=== PATIENT | female | born 1970 | race Caucasian/White ===

== ENCOUNTER → 2017-06-05 10:38 | Outpatient (POV) | payer OTHER, SELFPAY ==
[2017-06-05 11:33] VITALS: BP 171/89; PULSE 113; RESP 18; TEMP 36.8; O2SAT 100; BMI 36.6
--- NOTE | 2017-06-05 11:42 | P.CONS_ITS ---
[facility] Pain Management SOAP Note Subjective:: This patient is a pleasant 46-year-old white female who we are treating for degenerative disc disease of lumbar spine with lumbar spondylosis and facet arthropathy. She had successful medial branch blocks at L4-L5 and L5-S1 on the right side. She got 80% relief of her pain symptoms. We will seek approval for rhizotomy of the same levels on the right side Objective:: Alert and oriented ?3 in no acute distress. Increased pain with extension. Motor strength of the lower extremities is 5/5. There is no gross sensory deficit. Tenderness over the lower lumbar spine. Assessment:: Degenerative disc disease of lumbar spine with lumbar spondylosis and facet arthropathy. Plan:: We will seek approval for lumbar facet rhizotomy of L4 L5-S1 on the right side patient did get 80% relief from her medial branch block or 2 days.
--- NOTE | 2017-07-05 09:21 | PC.PHONENOTE ---
Called in Rx for Tramadol HCL 50mg TID [facility] [place]
== END ==
PROVIDERS: Family Provider Pediatrics; PCP Urology; Visit Provider Anesthesiology
DX: M51.16 Intervertebral disc disorders with radiculopathy, lumbar region (principal)
CPT/HCPCS: 99212

== ENCOUNTER 2017-07-07 10:19 | Day surgery (SDC) | payer OTHER, SELFPAY ==
[2017-07-07 10:33] VITALS: BP 144/72; PULSE 83; RESP 20; TEMP 36.6; O2SAT 96; BMI 35.9
--- NOTE | 2017-07-07 11:56 | HMH.PMPROC ---
- Procedure Date: 07/07/17 Time: 11:56 Anesthesiologist:: Foster Romo MD Complications:: None Pre-procedure Diagnosis:: Degenerative disc disease of lumbar spine with lumbar spondylosis and facet arthropathy Post-procedure Diagnosis:: Same Indications for Procedure:: This patient is a pleasant 46-year-old white female who we are treating for degenerative disc disease of lumbar spine with lumbar spondylosis and facet arthropathy. She had 80% relief with medial branch blocks of L4-L5 and L5-S1 on the right side. Most of her pain is on the right side. We will do facet rhizotomy of L4-L5 and L5-S1 today on the right side. Procedure Details:: Lumbar RFA informed consent was obtained and the risk and benefits of the procedure was explained to the patient. Patient was placed prone on the procedure table. The patient was prepped and draped in sterile fashion. C-arm fluoroscopy was used to view the lumbar spine. The skin and subcutaneous tissues were anesthetized using lidocaine. I placed 20-gauge RF needles into the facet joints/medial branches of L4 and L5 levels on the right side. We underwent sensory stimulation. There is good sensory stimulation at 0.8 V. We underwent motor stimulation. There is no motor stimulation at 2 V. We then anesthetized these levels with lidocaine and Depo-Medrol. I used a total of 40 mg Depo-Medrol for both levels. I then burned both levels of L4 and L5 facet joint/medial branches on the right side for 60 seconds at 80?C. We underwent 4 torres again each 1 for 60 seconds at 80?C. Patient tolerated the procedure well with no complication. Plan and Disposition:: We will follow-up with her in 2 weeks in the clinic. We will reevaluate her symptoms at that time.
--- NOTE | 2017-07-07 12:01 | P.PCN_ITS ---
- Procedure Date: 07/07/17 Time: 11:56 Anesthesiologist:: Foster Romo MD Complications:: None Pre-procedure Diagnosis:: Degenerative disc disease of lumbar spine with lumbar spondylosis and facet arthropathy Post-procedure Diagnosis:: Same Indications for Procedure:: This patient is a pleasant 46-year-old white female who we are treating for degenerative disc disease of lumbar spine with lumbar spondylosis and facet arthropathy. She had 80% relief with medial branch blocks of L4-L5 and L5-S1 on the right side. Most of her pain is on the right side. We will do facet rhizotomy of L4-L5 and L5-S1 today on the right side. Procedure Details:: Lumbar RFA informed consent was obtained and the risk and benefits of the procedure was explained to the patient. Patient was placed prone on the procedure table. The patient was prepped and draped in sterile fashion. C-arm fluoroscopy was used to view the lumbar spine. The skin and subcutaneous tissues were anesthetized using lidocaine. I placed 20-gauge RF needles into the facet joints/medial branches of L4 and L5 levels on the right side. We underwent sensory stimulation. There is good sensory stimulation at 0.8 V. We underwent motor stimulation. There is no motor stimulation at 2 V. We then anesthetized these levels with lidocaine and Depo-Medrol. I used a total of 40 mg Depo- Medrol for both levels. I then burned both levels of L4 and L5 facet joint/ medial branches on the right side for 60 seconds at 80?C. We underwent 4 torres again each 1 for 60 seconds at 80?C. Patient tolerated the procedure well with no complication. Plan and Disposition:: We will follow-up with her in 2 weeks in the clinic. We will reevaluate her symptoms at that time.
[2017-07-07 12:03] VITALS: BP 148/100; PULSE 87; RESP 18; O2SAT 100
[2017-07-07 12:07] VITALS: BP 156/97; PULSE 83; RESP 18; O2SAT 18
[2017-07-07 12:16] VITALS: BP 150/94; PULSE 92; RESP 20; TEMP 36.6; O2SAT 96
== END 2017-07-07 12:20 ==
LOC: SC.PAINP 10:25
PROVIDERS: Family Provider Pediatrics; PCP Pediatrics; Visit Provider Anesthesiology
DX: M51.36 Other intervertebral disc degeneration, lumbar region (principal); M47.896 Other spondylosis, lumbar region; M54.06 Panniculitis affecting regions of neck and back, lumbar region
CPT/HCPCS: 64635; 64636; J1040

== ENCOUNTER → 2017-07-24 12:46 | Outpatient (POV) | payer OTHER, SELFPAY ==
--- NOTE | 2017-07-24 12:52 | HMH.PAINSOAP ---
[facility] Pain Management SOAP Note Subjective:: She is a very pleasant 46-year-old white female who presents today after radiofrequency ablation of the right side at L4-L5 L5-S1. Patient states she has 0 pain on the right side today. 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 She states that her left side does give her a little bit of pain rating it a 3 out of 10 today. However she at this point she is content with her pain control. She will follow-up as needed if her pain gets worse on her left side or if it begins returning on the right. ROS General: no recent weight change, no fever, no sleep disturbances Respiratory: no cough, no shortness of air, no recurring pulmonary infections Cardiovascular/Peripheral Vascular: No chest pain, No palpitations, no edema, no shortness of breath. Gastrointestinal: no incontinence, normal bowel movements reported Genitourinary: no incontinence Musculoskeletal: Back pain Psychiatric: normal mood/ affect, Neurological: [denies weakness in extremities], [denies balance issues] Objective:: Physical Exam General: Alert and oriented x3, no acute distress, pleasant and cooperative, [on room air] Lungs: Resps E/U, Symmetrical chest expansion, Eyes: PERRL Musculoskeletal: Flexion and extension of lumbar spine somewhat guarded secondary to pain, deep tendon reflexes normal, strength in upper and lower extremities [5/5], normal gait noted Neurological: speech clear, accounts payable manager equal, no gross sensory deficits Assessment:: Degenerative disc disease of the lumbar spine with lumbar spondylosis and facet arthropathy Plan:: We will follow-up with this patient as needed. She is going to contact us if her pain worsens or begins to return on her right side. Patient is currently taking tramadol 50 mg at nighttime to help her sleep. Patient's CHERYL #[id number] reviewed and appropriate. Patient does not need refills today. This note was dictated using voice recognition software and may contain errors or omissions
[2017-07-24 12:53] VITALS: BP 140/89; PULSE 82; RESP 18; TEMP 36.6; O2SAT 96; BMI 36.6
--- NOTE | 2017-07-24 12:55 | P.CONS_ITS ---
[facility] Pain Management SOAP Note Subjective:: She is a very pleasant 46-year-old white female who presents today after radiofrequency ablation of the right side at L4-L5 L5-S1. Patient states she has 0 pain on the right side today. 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 She states that her left side does give her a little bit of pain rating it a 3 out of 10 today. However she at this point she is content with her pain control. She will follow-up as needed if her pain gets worse on her left side or if it begins returning on the right. ROS General: no recent weight change, no fever, no sleep disturbances Respiratory: no cough, no shortness of air, no recurring pulmonary infections Cardiovascular/Peripheral Vascular: No chest pain, No palpitations, no edema, no shortness of breath. Gastrointestinal: no incontinence, normal bowel movements reported Genitourinary: no incontinence Musculoskeletal: Back pain Psychiatric: normal mood/ affect, Neurological: [denies weakness in extremities], [denies balance issues] Objective:: Physical Exam General: Alert and oriented x3, no acute distress, pleasant and cooperative, [ on room air] Lungs: Resps E/U, Symmetrical chest expansion, Eyes: PERRL Musculoskeletal: Flexion and extension of lumbar spine somewhat guarded secondary to pain, deep tendon reflexes normal, strength in upper and lower extremities [5/5], normal gait noted Neurological: speech clear, personal development educator equal, no gross sensory deficits Assessment:: Degenerative disc disease of the lumbar spine with lumbar spondylosis and facet arthropathy Plan:: We will follow-up with this patient as needed. She is going to contact us if her pain worsens or begins to return on her right side. Patient is currently taking tramadol 50 mg at nighttime to help her sleep. Patient's CHERYL # [id number] reviewed and appropriate. Patient does not need refills today. This note was dictated using voice recognition software and may contain errors or omissions
--- NOTE | 2017-08-02 08:41 | PC.PHONENOTE ---
called in Rx for Tramadol HCL 50mg TID with 1 refill to [facility] in [place]
== END ==
PROVIDERS: Family Provider Pediatrics; PCP Pediatrics; Visit Provider Clinical Nurse Specialist Family Health
DX: M47.26 Other spondylosis with radiculopathy, lumbar region (principal)
CPT/HCPCS: 99212

== ENCOUNTER → 2017-10-02 08:39 | Outpatient (POV) | payer OTHER, SELFPAY ==
[2017-10-02 09:03] VITALS: BP 154/98; PULSE 91; RESP 20; O2SAT 99; BMI 36.4
--- NOTE | 2017-10-02 09:34 | HMH.PAINSOAP ---
[facility] Pain Management SOAP Note Subjective:: Patient is a very pleasant 47-year-old white female who presents today. Patient completed a radiofrequency ablation of the right side at L4-L5 L5-S1. Patient returns today after 4 months of 100% relief. Patient states that after being more active she is begun to hurt again in the same area. Patient states that the pain is on both sides at this time. Patient does have trouble with twisting movements. She rates her pain a 6 out of 10 today. She does take tramadol 50 mg 1 po TID. Patient states that this helps her with working. Patient is interested in doing a repeat medial branch block to see if she gets some longer-term relief. I believe that this would be warranted given her symptomology. Is tried and failed physical therapy, bracing, medications, anti-inflammatories. Patient has had over 80% relief in the past with these injections for up to 8 weeks. ROS General: no recent weight change, no fever, no sleep disturbances Respiratory: no cough, no shortness of air, no recurring pulmonary infections Cardiovascular/Peripheral Vascular: No chest pain, No palpitations, no edema, no shortness of breath. Gastrointestinal: no incontinence, normal bowel movements reported Genitourinary: no incontinence Musculoskeletal: Back pain Psychiatric: normal mood/ affect Neurological: [denies weakness in extremities], [denies balance issues] Objective:: Physical Exam General: Alert and oriented x3, no acute distress, pleasant and cooperative, [on room air] Lungs: Resps E/U, Symmetrical chest expansion, Eyes: PERRL Musculoskeletal: Flexion and extension of lumbar spine somewhat guarded secondary to pain, deep tendon reflexes normal, strength in upper and lower extremities [5/5], normal gait noted, positive facet loading lumbar spine bilaterally, positive Kemps test. Neurological: speech clear, police chief deputy equal, no gross sensory deficits Assessment:: Facet arthropathy, lumbar spondylosis, degenerative disc disease of lumbar spine Plan:: We will plan a bilateral medial branch block of L4-L5 L5-S1. I believe given her success in the past that this would be beneficial for her. We will refill her tramadol 50 mg p.o. 3 times daily. Patient's CHERYL #[id number] reviewed and appropriate. Patient denies any side effects to the medication. She states that it helps her 50-60%. This note was dictated using voice recognition software and may contain errors or omissions
--- NOTE | 2017-10-02 09:38 | P.CONS_ITS ---
[facility] Pain Management SOAP Note Subjective:: Patient is a very pleasant 47-year-old white female who presents today. Patient completed a radiofrequency ablation of the right side at L4-L5 L5-S1. Patient returns today after 4 months of 100% relief. Patient states that after being more active she is begun to hurt again in the same area. Patient states that the pain is on both sides at this time. Patient does have trouble with twisting movements. She rates her pain a 6 out of 10 today. She does take tramadol 50 mg 1 po TID. Patient states that this helps her with working. Patient is interested in doing a repeat medial branch block to see if she gets some longer-term relief. I believe that this would be warranted given her symptomology. Is tried and failed physical therapy, bracing, medications, anti- inflammatories. Patient has had over 80% relief in the past with these injections for up to 8 weeks. ROS General: no recent weight change, no fever, no sleep disturbances Respiratory: no cough, no shortness of air, no recurring pulmonary infections Cardiovascular/Peripheral Vascular: No chest pain, No palpitations, no edema, no shortness of breath. Gastrointestinal: no incontinence, normal bowel movements reported Genitourinary: no incontinence Musculoskeletal: Back pain Psychiatric: normal mood/ affect Neurological: [denies weakness in extremities], [denies balance issues] Objective:: Physical Exam General: Alert and oriented x3, no acute distress, pleasant and cooperative, [ on room air] Lungs: Resps E/U, Symmetrical chest expansion, Eyes: PERRL Musculoskeletal: Flexion and extension of lumbar spine somewhat guarded secondary to pain, deep tendon reflexes normal, strength in upper and lower extremities [5/5], normal gait noted, positive facet loading lumbar spine bilaterally, positive Kemps test. Neurological: speech clear, environmental health physician equal, no gross sensory deficits Assessment:: Facet arthropathy, lumbar spondylosis, degenerative disc disease of lumbar spine Plan:: We will plan a bilateral medial branch block of L4-L5 L5-S1. I believe given her success in the past that this would be beneficial for her. We will refill her tramadol 50 mg p.o. 3 times daily. Patient's CHERYL #[id number] reviewed and appropriate. Patient denies any side effects to the medication. She states that it helps her 50-60%. This note was dictated using voice recognition software and may contain errors or omissions
--- NOTE | 2017-10-03 09:30 | PC.PHONENOTE ---
09/29/17-Called in Rx for Tramadol 50mg TIDPRN with 2 refills per provider order
== END ==
PROVIDERS: Family Provider Pediatrics; PCP Pediatrics; Visit Provider Clinical Nurse Specialist Family Health
DX: M47.816 Spondylosis without myelopathy or radiculopathy, lumbar region (principal)
CPT/HCPCS: 99212

== ENCOUNTER → 2017-11-20 08:51 | Outpatient (POV) | payer OTHER, SELFPAY ==
[2017-11-20 09:13] VITALS: BP 140/84; PULSE 64; RESP 18; O2SAT 98; BMI 36.4
--- NOTE | 2017-11-20 09:22 | HMH.PAINSOAP ---
[facility] Pain Management SOAP Note Subjective:: This patient is a pleasant 47-year-old white female who presents today after medial branch block of the L4-L5 L5-S1 level. Patient states she got 90-100% relief for several weeks after this. Patient typically gets about 2 months relief with her medial branch blocks. Patient has had an RFA in the past where she got 2 months of 100% relief. This was back 6 months ago. Patient would like to repeat the RFA at the L4-L5 L5-S1 level bilaterally. Patient rates her pain a 3 out of 10 today. Patient is continuing to work full-time. Patient also on tramadol 50 mg 1 p.o. 3 times daily. Patient denies any side effects to that medication. Patient's CHERYL #[id number]. ROS General: no recent weight change, no fever, no sleep disturbances Respiratory: no cough, no shortness of air, no recurring pulmonary infections Cardiovascular/Peripheral Vascular: No chest pain, No palpitations, no edema, no shortness of breath. Gastrointestinal: no incontinence, normal bowel movements reported Genitourinary: no incontinence Musculoskeletal: Low back pain Psychiatric: normal mood/ affect Neurological: [denies weakness in extremities], [denies balance issues] Objective:: Physical Exam General: Alert and oriented x3, no acute distress, pleasant and cooperative, [on room air] Lungs: Resps E/U, Symmetrical chest expansion, Eyes: PERRL Musculoskeletal: Flexion and extension of lumbar spine somewhat guarded secondary to pain, deep tendon reflexes normal, strength in upper and lower extremities [5/5], antalgic gait noted, positive facet loading lumbar spine Neurological: speech clear, pharmacology associate equal, no gross sensory deficits Assessment:: Lumbar spondylosis, facet arthropathy Plan:: We will schedule an RFA at the L4-L5 L5-S1 levels bilaterally at the end of December. Patient had one performed about 6 months ago and did quite well with it. Patient's received 80 -100% relief with her medial branch blocks for up to 8 weeks. Patient is not on any anticoagulation therapy. Patient's tried and failed physical therapy, medications, anti-inflammatories. Patient continues to do home stretching regimen. This note was dictated using voice recognition software and may contain errors or omissions
--- NOTE | 2017-11-20 09:25 | P.CONS_ITS ---
[facility] Pain Management SOAP Note Subjective:: This patient is a pleasant 47-year-old white female who presents today after medial branch block of the L4-L5 L5-S1 level. Patient states she got 90-100% relief for several weeks after this. Patient typically gets about 2 months relief with her medial branch blocks. Patient has had an RFA in the past where she got 2 months of 100% relief. This was back 6 months ago. Patient would like to repeat the RFA at the L4-L5 L5-S1 level bilaterally. Patient rates her pain a 3 out of 10 today. Patient is continuing to work full-time. Patient also on tramadol 50 mg 1 p.o. 3 times daily. Patient denies any side effects to that medication. Patient's CHERYL #[id number]. ROS General: no recent weight change, no fever, no sleep disturbances Respiratory: no cough, no shortness of air, no recurring pulmonary infections Cardiovascular/Peripheral Vascular: No chest pain, No palpitations, no edema, no shortness of breath. Gastrointestinal: no incontinence, normal bowel movements reported Genitourinary: no incontinence Musculoskeletal: Low back pain Psychiatric: normal mood/ affect Neurological: [denies weakness in extremities], [denies balance issues] Objective:: Physical Exam General: Alert and oriented x3, no acute distress, pleasant and cooperative, [ on room air] Lungs: Resps E/U, Symmetrical chest expansion, Eyes: PERRL Musculoskeletal: Flexion and extension of lumbar spine somewhat guarded secondary to pain, deep tendon reflexes normal, strength in upper and lower extremities [5/5], antalgic gait noted, positive facet loading lumbar spine Neurological: speech clear, linesperson equal, no gross sensory deficits Assessment:: Lumbar spondylosis, facet arthropathy Plan:: We will schedule an RFA at the L4-L5 L5-S1 levels bilaterally at the end of December. Patient had one performed about 6 months ago and did quite well with it. Patient's received 80 -100% relief with her medial branch blocks for up to 8 weeks. Patient is not on any anticoagulation therapy. Patient's tried and failed physical therapy, medications, anti-inflammatories. Patient continues to do home stretching regimen. This note was dictated using voice recognition software and may contain errors or omissions
--- NOTE | 2018-01-01 08:33 | PC.PHONENOTE ---
called in Rx for tramadol HCL 50mg TID with 2 refills
== END ==
PROVIDERS: Family Provider Pediatrics; PCP Pediatrics; Visit Provider Clinical Nurse Specialist Family Health
DX: M47.816 Spondylosis without myelopathy or radiculopathy, lumbar region (principal)
CPT/HCPCS: 99212

== ENCOUNTER → 2018-04-09 10:37 | Outpatient (POV) | payer OTHER, SELFPAY ==
[2018-04-09 10:52] VITALS: BP 172/82; PULSE 92; RESP 18; O2SAT 98; BMI 34.7
--- NOTE | 2018-04-09 10:56 | P.CONS_ITS ---
[facility] Pain Management SOAP Note Subjective:: Is a pleasant 47-year-old white female who presents today for follow-up after lumbar RFA. Patient states she is doing significantly better her pain has been decreased up to 80%. Patient states she is much more active. Patient rates her pain today a 3 out of 10. Patient would like to follow-up on an as-needed basis. Patient did tramadol 50 mg 1 p.o. 3 times daily as needed and is continuing to work full-time. She denies side effects to this. [facility] #[id number] reviewed. Patient will follow-up in 3 months. ROS General: no recent weight change, no fever, no sleep disturbances Respiratory: no cough, no shortness of air, no recurring pulmonary infections Cardiovascular/Peripheral Vascular: No chest pain, No palpitations, no edema, no shortness of breath. Gastrointestinal: no incontinence, normal bowel movements reported Genitourinary: no incontinence Musculoskeletal: Back pain Psychiatric: normal mood/ affect Neurological: [denies weakness in extremities], [denies balance issues] Objective:: Physical Exam General: Alert and oriented x3, no acute distress, pleasant and cooperative, [on room air] Lungs: Resps E/U, Symmetrical chest expansion, Eyes: PERRL Musculoskeletal: Flexion and extension of lumbar spine somewhat guarded secondary to pain, deep tendon reflexes normal, strength in upper and lower extremities [5/5], normal gait noted Neurological: speech clear, insurance follow up rep equal, no gross sensory deficits Assessment:: Degenerative disc disease lumbar spine with lumbar spondylosis and facet arthropathy Plan:: We will see the patient back in 3 months. Patient is not in need of any tramadol refills today. Patient is doing extremely well. Patient's been instructed to call the office if she has any issues prior to her next appointment.. This note was dictated using voice recognition software and may contain errors or omissions
--- NOTE | 2018-06-19 14:58 | PC.NURSE ---
TRAMADOL TID WITH 2 REFILLS CALLED INTO [facility] PER PROVIDER ORDER
== END ==
PROVIDERS: PCP Pediatrics; Visit Provider Clinical Nurse Specialist Family Health
DX: M51.36 Other intervertebral disc degeneration, lumbar region (principal); M47.896 Other spondylosis, lumbar region; M54.06 Panniculitis affecting regions of neck and back, lumbar region
CPT/HCPCS: 99213

== ENCOUNTER → 2018-07-09 09:03 | Outpatient (POV) | payer OTHER, SELFPAY ==
[2018-07-09 09:09] VITALS: BP 152/86; PULSE 94; RESP 18; O2SAT 98; BMI 36.2
--- NOTE | 2018-07-09 09:11 | P.CONS_ITS ---
[facility] Pain Management SOAP Note Subjective:: Is a pleasant 47-year-old white female who presents today for follow-up. Patient had an RFA about 4 months ago. She still doing extremely well rating her pain relief 70%. Patient rates her pain a 4 out of 10 today. She is currently on tramadol and takes it on a as needed basis. And she is doing well with this. She does not need any refills. Patient states she may need some injections in the future however at this time she is doing well. ROS General: no recent weight change, no fever, no sleep disturbances Respiratory: no cough, no shortness of air, no recurring pulmonary infections Cardiovascular/Peripheral Vascular: No chest pain, No palpitations, no edema, no shortness of breath. Gastrointestinal: no incontinence, normal bowel movements reported Genitourinary: no incontinence Musculoskeletal: Back pain at times Psychiatric: normal mood/ affect, Neurological: [denies weakness in extremities], [denies balance issues] Objective:: Physical Exam General: Alert and oriented x3, no acute distress, pleasant and cooperative, [on room air] Lungs: Resps E/U, Symmetrical chest expansion, Eyes: PERRL Musculoskeletal: Flexion and extension of lumbar spine somewhat guarded secondary to pain, deep tendon reflexes normal, strength in upper and lower extremities [5/5], antalgic gait noted, positive Kemps test bilateral lumbar spine Neurological: speech clear, computer game tester equal, no gross sensory deficits Assessment:: Degenerative disc disease lumbar spine with lumbar facet arthropathy and lumbar spondylosis Plan:: Patient is good to call us when she feels like she may need an additional inj ection. If she does we will set her up for a repeat medial branch block. Patient is not on any blood thinners. Patient is continuing a home stretching exercise program and is on anti-inflammatories. Dr. Romo has reviewed this note and agrees with this plan of care. This note was dictated using voice recognition software and may contain errors or omissions
== END ==
PROVIDERS: PCP Pediatrics; Visit Provider Clinical Nurse Specialist Family Health
DX: M51.36 Other intervertebral disc degeneration, lumbar region (principal); M54.06 Panniculitis affecting regions of neck and back, lumbar region; M47.816 Spondylosis without myelopathy or radiculopathy, lumbar region
CPT/HCPCS: 99213

== ENCOUNTER → 2018-09-24 14:20 | Outpatient (POV) | payer OTHER, SELFPAY ==
[2018-09-24 14:47] VITALS: BP 137/81; PULSE 99; RESP 18; O2SAT 98; BMI 36.6
--- NOTE | 2018-09-24 14:50 | HMH.PAINSOAP ---
[facility] Pain Management SOAP Note Subjective:: Is a pleasant 48-year-old white female who presents today for follow-up after medial branch block at L4-L5 L5-S1. Patient has had several medial branch blocks with good success. She is also had RFA's in the past with good success. Patient has had up to 80% relief for 6 months. Patient is interested in repeating this. She rates her current pain a 4 out of 10. Patient is much more functional after her radiofrequency ablations. She is continuing a home stretching program. She is not on any anticoagulation. ROS General: no recent weight change, no fever, no sleep disturbances Respiratory: no cough, no shortness of air, no recurring pulmonary infections Cardiovascular/Peripheral Vascular: No chest pain, No palpitations, no edema, no shortness of breath. Gastrointestinal: no incontinence, normal bowel movements reported Genitourinary: no incontinence Musculoskeletal: Back pain Psychiatric: normal mood/ affect Neurological: [denies weakness in extremities], [denies balance issues] Objective:: Physical Exam General: Alert and oriented x3, no acute distress, pleasant and cooperative, [on room air] Lungs: Resps E/U, Symmetrical chest expansion, Eyes: PERRL Musculoskeletal: Flexion and extension of lumbar spine somewhat guarded secondary to pain, deep tendon reflexes normal, strength in upper and lower extremities [5/5], slightly antalgic gait noted, positive Kemps test, positive facet loading lumbar spine bilaterally Neurological: speech clear, transmission and protection engineer equal, no gross sensory deficits Assessment:: 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 We will start with the right side in 2 weeks later do the left side. Patient is gotten good relief with this in the past. I believe it would be very beneficial given the efficacy of both previous RFA's and recent medial branch block. Dr. Romo has reviewed this note and agrees with this plan of care. This note was dictated using voice recognition software and may contain errors or omissions
--- NOTE | 2018-09-24 14:53 | P.CONS_ITS ---
[facility] Pain Management SOAP Note Subjective:: Is a pleasant 48-year-old white female who presents today for follow-up after medial branch block at L4-L5 L5-S1. Patient has had several medial branch blocks with good success. She is also had RFA's in the past with good success. Patient has had up to 80% relief for 6 months. Patient is interested in repeating this. She rates her current pain a 4 out of 10. Patient is much more functional after her radiofrequency ablations. She is continuing a home stretching program. She is not on any anticoagulation. ROS General: no recent weight change, no fever, no sleep disturbances Respiratory: no cough, no shortness of air, no recurring pulmonary infections Cardiovascular/Peripheral Vascular: No chest pain, No palpitations, no edema, no shortness of breath. Gastrointestinal: no incontinence, normal bowel movements reported Genitourinary: no incontinence Musculoskeletal: Back pain Psychiatric: normal mood/ affect Neurological: [denies weakness in extremities], [denies balance issues] Objective:: Physical Exam General: Alert and oriented x3, no acute distress, pleasant and cooperative, [on room air] Lungs: Resps E/U, Symmetrical chest expansion, Eyes: PERRL Musculoskeletal: Flexion and extension of lumbar spine somewhat guarded secondary to pain, deep tendon reflexes normal, strength in upper and lower extremities [5/5], slightly antalgic gait noted, positive Kemps test, positive facet loading lumbar spine bilaterally Neurological: speech clear, tie up worker equal, no gross sensory deficits Assessment:: 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 We will start with the right side in 2 weeks later do the left side. Patient is gotten good relief with this in the past. I believe it would be very beneficial given the efficacy of both previous RFA's and recent medial branch block. Dr. Romo has reviewed this note and agrees with this plan of care. This note was dictated using voice recognition software and may contain errors or omissions
== END ==
PROVIDERS: PCP Urology; Visit Provider Clinical Nurse Specialist Family Health
DX: M51.36 Other intervertebral disc degeneration, lumbar region (principal); M54.06 Panniculitis affecting regions of neck and back, lumbar region; M47.896 Other spondylosis, lumbar region
CPT/HCPCS: 99212

== ENCOUNTER 2018-11-02 12:49 | Day surgery (SDC) | payer OTHER, SELFPAY ==
[2018-11-02 13:02] VITALS: BP 121/72; PULSE 84; RESP 17; O2SAT 96; BMI 35.4
--- NOTE | 2018-11-02 13:32 | HMH.PMPROC ---
- Procedure Date: 11/02/18 Time: 13:32 Anesthesiologist:: Foster Romo MD Complications:: None Pre-procedure Diagnosis:: Degenerative disease of lumbar spine with lumbar spondylosis and facet arthropathy of lumbar spine Post-procedure Diagnosis:: Same Indications for Procedure:: This patient is a pleasant 48-year-old white female who we are treating for low back pain with lumbar spondylosis and facet arthropathy. This patient did well with medial branch blocks with up to 80% relief for several months. Her pain is starting to come back. We will do radiofrequency ablation of the facet joints of L4-5 and L5-S1 today. We will start with the right side followed by the left side in 2 weeks. Procedure Details:: Lumbar RFA informed consent was obtained and the risk and benefits of the procedure was explained to the patient. Patient was placed prone on the procedure table. The patient was prepped and draped in sterile fashion. C-arm fluoroscopy was used to view the lumbar spine. The skin and subcutaneous tissues were anesthetized using lidocaine. I placed 20-gauge RF needles into the facet joints of L4-5 and L5-S1 levels on the right side. We underwent sensory stimulation. There is good sensory stimulation at 0.8 V. We underwent motor stimulation. There is no motor stimulation at 2 V. We then anesthetized these levels with lidocaine and Depo-Medrol. I used a total of 40 mg Depo-Medrol for both levels. I then burned both levels of L4-5 and L5-S1 facet joint/medial branches on the right side for 4 minutes at 80?C. Patient tolerated the procedure well with no complication. Plan and Disposition:: We will follow-up with her in 2 weeks. Will reevaluate symptoms
[2018-11-02 13:38] VITALS: BP 135/87; PULSE 80; RESP 18
[2018-11-02 13:42] VITALS: BP 132/78; PULSE 71; RESP 18; O2SAT 99
[2018-11-02 14:14] VITALS: BP 135/86; PULSE 83; RESP 18; O2SAT 97
== END 2018-11-02 13:40 | disposition home health service (06) ==
LOC: SC.PAINP 12:53
PROVIDERS: PCP Pediatrics; Visit Provider Anesthesiology
DX: M51.36 Other intervertebral disc degeneration, lumbar region (principal); M47.896 Other spondylosis, lumbar region; M54.06 Panniculitis affecting regions of neck and back, lumbar region
CPT/HCPCS: 64635; 64636; J1040

== ENCOUNTER → 2018-12-17 15:31 | Outpatient (POV) | payer OTHER, SELFPAY ==
--- NOTE | 2018-12-17 15:39 | HMH.PAINSOAP ---
[facility] Pain Management SOAP Note Subjective:: Patient is a pleasant 48-year-old white female who presents today for follow-up after RFA. She is having some residual right side pain however overall doing much better. She rates her pain a 3 out of 10. Patient and I discussed potentially doing some oral prednisone therapy to see if this is beneficial to help her inflammation on the right side. ROS General: no recent weight change, no fever, no sleep disturbances Respiratory: no cough, no shortness of air, no recurring pulmonary infections Cardiovascular/Peripheral Vascular: No chest pain, No palpitations, no edema, no shortness of breath. Gastrointestinal: no incontinence, normal bowel movements reported Genitourinary: no incontinence Musculoskeletal: Back pain Psychiatric: normal mood/ affect Neurological: [denies weakness in extremities], [denies balance issues] Objective:: Physical Exam General: Alert and oriented x3, no acute distress, pleasant and cooperative, [on room air] Lungs: Resps E/U, Symmetrical chest expansion, Eyes: PERRL Musculoskeletal: Flexion and extension of lumbar spine somewhat guarded secondary to pain, deep tendon reflexes normal, strength in upper and lower extremities [5/5], slightly antalgic gait noted Neurological: speech clear, grants and contracts assistant equal, no gross sensory deficits Assessment:: Lumbar facet arthropathy, degenerative disc disease lumbar spine Plan:: We will call in prednisone 20 mg 1 p.o. twice daily for 5 days to see if this is beneficial. Patient is adamant call us if it is not on successful. Patient will follow-up PRN. Dr. Romo has reviewed this note and agrees with this plan of care. This note was dictated using voice recognition software and may contain errors or omissions Pain Management Hx Components *Have you ever received a pneumonia vaccine?: Yes *Have you received a flu vaccine this season?: Yes - *Social History *Occupational Status:: employed *Travel in the last 8 weeks: None
[2018-12-17 15:40] VITALS: BP 136/98; PULSE 104; RESP 18; O2SAT 98; BMI 35.2
--- NOTE | 2018-12-17 15:42 | P.CONS_ITS ---
[facility] Pain Management SOAP Note Subjective:: Patient is a pleasant 48-year-old white female who presents today for follow-up after RFA. She is having some residual right side pain however overall doing much better. She rates her pain a 3 out of 10. Patient and I discussed potentially doing some oral prednisone therapy to see if this is beneficial to help her inflammation on the right side. ROS General: no recent weight change, no fever, no sleep disturbances Respiratory: no cough, no shortness of air, no recurring pulmonary infections Cardiovascular/Peripheral Vascular: No chest pain, No palpitations, no edema, no shortness of breath. Gastrointestinal: no incontinence, normal bowel movements reported Genitourinary: no incontinence Musculoskeletal: Back pain Psychiatric: normal mood/ affect Neurological: [denies weakness in extremities], [denies balance issues] Objective:: Physical Exam General: Alert and oriented x3, no acute distress, pleasant and cooperative, [on room air] Lungs: Resps E/U, Symmetrical chest expansion, Eyes: PERRL Musculoskeletal: Flexion and extension of lumbar spine somewhat guarded secondary to pain, deep tendon reflexes normal, strength in upper and lower extremities [5/5], slightly antalgic gait noted Neurological: speech clear, surveillance analyst equal, no gross sensory deficits Assessment:: Lumbar facet arthropathy, degenerative disc disease lumbar spine Plan:: We will call in prednisone 20 mg 1 p.o. twice daily for 5 days to see if this is beneficial. Patient is adamant call us if it is not on successful. Patient will follow-up PRN. Dr. Romo has reviewed this note and agrees with this plan of care. This note was dictated using voice recognition software and may contain errors or omissions Pain Management Hx Components *Have you ever received a pneumonia vaccine?: Yes *Have you received a flu vaccine this season?: Yes - *Social History *Occupational Status:: employed *Travel in the last 8 weeks: None
== END ==
PROVIDERS: Visit Provider Clinical Nurse Specialist Family Health
DX: M54.06 Panniculitis affecting regions of neck and back, lumbar region (principal); M51.36 Other intervertebral disc degeneration, lumbar region
CPT/HCPCS: 99212

== ENCOUNTER → 2019-01-29 08:47 | Outpatient (POV) | payer OTHER, SELFPAY ==
[2019-01-29 09:04] VITALS: BP 148/90; PULSE 96; RESP 18; O2SAT 98; BMI 36.9
--- NOTE | 2019-01-29 09:49 | HMH.PAINSOAP ---
[facility] Pain Management SOAP Note Subjective:: Patient is a pleasant 48-year-old white female who presents today for follow-up after RFA. Patient is doing well in her back pain however her SI joints have been extremely painful and causing bilateral hip pain as well. Patient has a positive Jael test Hernandez's test and SI joint compression test bilaterally. She is responded well to injections in the past. We will plan on bilateral SI joint injections for the patient. She rates her pain 8 out of 10 right now ROS General: no recent weight change, no fever, no sleep disturbances Respiratory: no cough, no shortness of air, no recurring pulmonary infections Cardiovascular/Peripheral Vascular: No chest pain, No palpitations, no edema, no shortness of breath. Gastrointestinal: no incontinence, normal bowel movements reported Genitourinary: no incontinence Musculoskeletal: Bilateral SI joint pain Psychiatric: normal mood/ affect Neurological: [denies weakness in extremities], [denies balance issues] Objective:: Physical Exam General: Alert and oriented x3, no acute distress, pleasant and cooperative, [on room air] Lungs: Resps E/U, Symmetrical chest expansion, Eyes: PERRL Musculoskeletal: Flexion and extension of lumbar spine somewhat guarded secondary to pain, deep tendon reflexes normal, strength in upper and lower extremities [5/5], slightly antalgic gait noted Neurological: speech clear, scorekeeper equal, no gross sensory deficits Assessment:: Sacroiliitis Plan:: We will schedule bilateral SI joint injections for the patient. I will follow-up with the patient after injection reassess her symptoms at that time she is been instructed to call the office if she has any issues prior to her next appointment. Dr. Romo has reviewed this note and agrees with this plan of care. This note was dictated using voice recognition software and may contain errors or omissions [facility] History I have reviewed the patient's past medical history: Yes Medical History: Reports:: Hypertension Denies:: Cancer, Diabetes Mellitus Type 1, Diabetes Mellitus Type 2, MRSA, Seizures *Have you ever received a pneumonia vaccine?: No *Have you received a flu vaccine this season?: Yes Other Medical History: Reports: Sinus Problems. Denies: Blood Transfusion Reaction Other Surgeries: Yes: , Tubal Ligation, Other (toe sx, lap bandm, tubal ligation) Amputation: No Fractures: No - *Social History Smoking Status: Never smoker Alcohol Intake: never Alcohol Intake Frequency:: holidays/special occasions only *Occupational Status:: employed Housing: house Household Members: spouse *Travel in the last 8 weeks: None Family Hx:: Cancer, Diabetes, Hyperlipidemia
--- NOTE | 2019-01-29 09:53 | P.CONS_ITS ---
[facility] Pain Management SOAP Note Subjective:: Patient is a pleasant 48-year-old white female who presents today for follow-up after RFA. Patient is doing well in her back pain however her SI joints have been extremely painful and causing bilateral hip pain as well. Patient has a positive Jael test Hernandez's test and SI joint compression test bilaterally. She is responded well to injections in the past. We will plan on bilateral SI joint injections for the patient. She rates her pain 8 out of 10 right now ROS General: no recent weight change, no fever, no sleep disturbances Respiratory: no cough, no shortness of air, no recurring pulmonary infections Cardiovascular/Peripheral Vascular: No chest pain, No palpitations, no edema, no shortness of breath. Gastrointestinal: no incontinence, normal bowel movements reported Genitourinary: no incontinence Musculoskeletal: Bilateral SI joint pain Psychiatric: normal mood/ affect Neurological: [denies weakness in extremities], [denies balance issues] Objective:: Physical Exam General: Alert and oriented x3, no acute distress, pleasant and cooperative, [on room air] Lungs: Resps E/U, Symmetrical chest expansion, Eyes: PERRL Musculoskeletal: Flexion and extension of lumbar spine somewhat guarded secondary to pain, deep tendon reflexes normal, strength in upper and lower extremities [5/5], slightly antalgic gait noted Neurological: speech clear, machine filler shredder equal, no gross sensory deficits Assessment:: Sacroiliitis Plan:: We will schedule bilateral SI joint injections for the patient. I will follow- up with the patient after injection reassess her symptoms at that time she is been instructed to call the office if she has any issues prior to her next appointment. Dr. Romo has reviewed this note and agrees with this plan of care. This note was dictated using voice recognition software and may contain errors or omissions [facility] History I have reviewed the patient's past medical history: Yes Medical History: Reports:: Hypertension Denies:: Cancer, Diabetes Mellitus Type 1, Diabetes Mellitus Type 2, MRSA, Seizures *Have you ever received a pneumonia vaccine?: No *Have you received a flu vaccine this season?: Yes Other Medical History: Reports: Sinus Problems. Denies: Blood Transfusion Reaction Other Surgeries: Yes: , Tubal Ligation, Other (toe sx, lap bandm, tubal ligation) Amputation: No Fractures: No - *Social History Smoking Status: Never smoker Alcohol Intake: never Alcohol Intake Frequency:: holidays/special occasions only *Occupational Status:: employed Housing: house Household Members: spouse *Travel in the last 8 weeks: None Family Hx:: Cancer, Diabetes, Hyperlipidemia
== END ==
PROVIDERS: PCP Pediatrics; Visit Provider Clinical Nurse Specialist Family Health
DX: M46.1 Sacroiliitis, not elsewhere classified (principal)
CPT/HCPCS: 99212

== ENCOUNTER → 2019-03-18 11:15 | Outpatient (POV) | payer OTHER, SELFPAY ==
[2019-03-18 11:37] VITALS: BP 149/81; PULSE 65; RESP 18; O2SAT 99; BMI 34.9
--- NOTE | 2019-03-18 12:48 | HMH.PAINSOAP ---
[facility] Pain Management SOAP Note Subjective:: Patient is a pleasant 48-year-old white female who presents today for follow-up after bilateral SI joint injections. Patient was doing well with her hip pain however her low back pain has begun to return. Patient had an RFA for 5 months ago. Patient and I discussed a booster medial branch block/facet joint injection. She is continuing to work full-time. Patient has pain with twisting movements. Patient does not have any radiation of the pain. She rates her pain today a 7 out of 10 she is currently on anti-inflammatory and is continuing a home stretching program. ROS General: no recent weight change, no fever, no sleep disturbances Respiratory: no cough, no shortness of air, no recurring pulmonary infections Cardiovascular/Peripheral Vascular: No chest pain, No palpitations, no edema, no shortness of breath. Gastrointestinal: no new onset incontinence, normal bowel movements reported Genitourinary: no new onset incontinence Musculoskeletal: Back pain Psychiatric: normal mood/ affect Neurological: [denies new onset weakness in extremities], [denies new onset balance issues] Objective:: Physical Exam General: Alert and oriented x3, no acute distress, pleasant and cooperative, [on room air] Lungs: Resps E/U, Symmetrical chest expansion, Eyes: PERRL Musculoskeletal: Flexion and extension of lumbar spine somewhat guarded secondary to pain, deep tendon reflexes normal, strength in upper and lower extremities [5/5], slightly antalgic gait noted, positive Kemps test bilateral lumbar spine Neurological: speech clear, community chest officer equal, no gross sensory deficits Assessment:: Degenerative disc disease lumbar spine with lumbar spondylosis and facet arthropathy Plan:: We will schedule the patient for an L4-L5 L5-S1 bilateral medial branch block. Patient may need a repeat RFA. I will follow-up with the patient after her injection reassess her symptoms at that time she is not on any anticoagulation therapy. Is been instructed to call the office if she has any issues prior to her next appointment. Dr. Romo has reviewed this note and agrees with this plan of care. This note was dictated using voice recognition software and may contain errors or omissions [facility] History I have reviewed the patient's past medical history: Yes Medical History: Reports:: Hypertension Denies:: Cancer, Diabetes Mellitus Type 1, Diabetes Mellitus Type 2, MRSA, Seizures *Have you ever received a pneumonia vaccine?: Yes *Have you received a flu vaccine this season?: Yes Other Medical History: Reports: Sinus Problems. Denies: Blood Transfusion Reaction Other Surgeries: Yes: , Tubal Ligation, Other (toe sx, lap bandm, tubal ligation) Amputation: No Fractures: No - *Social History Smoking Status: Never smoker Alcohol Intake: never Alcohol Intake Frequency:: holidays/special occasions only *Occupational Status:: other Housing: house Household Members: spouse *Travel in the last 8 weeks: None Family Hx:: Cancer, Diabetes, Hyperlipidemia
--- NOTE | 2019-03-18 12:51 | P.CONS_ITS ---
[facility] Pain Management SOAP Note Subjective:: Patient is a pleasant 48-year-old white female who presents today for follow-up after bilateral SI joint injections. Patient was doing well with her hip pain however her low back pain has begun to return. Patient had an RFA for 5 months ago. Patient and I discussed a booster medial branch block/facet joint injection. She is continuing to work full-time. Patient has pain with twisting movements. Patient does not have any radiation of the pain. She rates her pain today a 7 out of 10 she is currently on anti-inflammatory and is continuing a home stretching program. ROS General: no recent weight change, no fever, no sleep disturbances Respiratory: no cough, no shortness of air, no recurring pulmonary infections Cardiovascular/Peripheral Vascular: No chest pain, No palpitations, no edema, no shortness of breath. Gastrointestinal: no new onset incontinence, normal bowel movements reported Genitourinary: no new onset incontinence Musculoskeletal: Back pain Psychiatric: normal mood/ affect Neurological: [denies new onset weakness in extremities], [denies new onset balance issues] Objective:: Physical Exam General: Alert and oriented x3, no acute distress, pleasant and cooperative, [on room air] Lungs: Resps E/U, Symmetrical chest expansion, Eyes: PERRL Musculoskeletal: Flexion and extension of lumbar spine somewhat guarded secondary to pain, deep tendon reflexes normal, strength in upper and lower extremities [5/5], slightly antalgic gait noted, positive Kemps test bilateral lumbar spine Neurological: speech clear, african studies professor equal, no gross sensory deficits Assessment:: Degenerative disc disease lumbar spine with lumbar spondylosis and facet arthropathy Plan:: We will schedule the patient for an L4-L5 L5-S1 bilateral medial branch block. Patient may need a repeat RFA. I will follow-up with the patient after her injection reassess her symptoms at that time she is not on any anticoagulation therapy. Is been instructed to call the office if she has any issues prior to her next appointment. Dr. Romo has reviewed this note and agrees with this plan of care. This note was dictated using voice recognition software and may contain errors or omissions [facility] History I have reviewed the patient's past medical history: Yes Medical History: Reports:: Hypertension Denies:: Cancer, Diabetes Mellitus Type 1, Diabetes Mellitus Type 2, MRSA, Seizures *Have you ever received a pneumonia vaccine?: Yes *Have you received a flu vaccine this season?: Yes Other Medical History: Reports: Sinus Problems. Denies: Blood Transfusion Reaction Other Surgeries: Yes: , Tubal Ligation, Other (toe sx, lap bandm, tubal ligation) Amputation: No Fractures: No - *Social History Smoking Status: Never smoker Alcohol Intake: never Alcohol Intake Frequency:: holidays/special occasions only *Occupational Status:: other Housing: house Household Members: spouse *Travel in the last 8 weeks: None Family Hx:: Cancer, Diabetes, Hyperlipidemia
== END ==
PROVIDERS: Visit Provider Clinical Nurse Specialist Family Health
DX: M51.36 Other intervertebral disc degeneration, lumbar region (principal); M54.06 Panniculitis affecting regions of neck and back, lumbar region; M47.816 Spondylosis without myelopathy or radiculopathy, lumbar region
CPT/HCPCS: 99212

== ENCOUNTER → 2019-05-06 10:46 | Outpatient (POV) | payer OTHER, SELFPAY ==
[2019-05-06 11:25] VITALS: BP 142/85; PULSE 103; RESP 18; O2SAT 99; BMI 33.3
--- NOTE | 2019-05-06 12:14 | HMH.PAINSOAP ---
[facility] Pain Management SOAP Note Subjective:: Patient is a very pleasant 48-year-old white female who presents today for follow-up after her facet joint injections. Patient is just not getting the same results with her injections and RFA's that she has in the past. She is having pain in her low back radiating into her legs. Both legs are having color changes, temperature changes color changes bilaterally. Patient does have autonomic symptomology. She has had pain for over a year. She is failed multiple injection therapies along with ablations. Patient rates her pain a 7 out of 10. She is trying to work and is unable to do so at this time due to her pain. Patient wants to discuss a neurostimulator. ROS General: no recent weight change, no fever, no sleep disturbances Respiratory: no cough, no shortness of air, no recurring pulmonary infections Cardiovascular/Peripheral Vascular: No chest pain, No palpitations, no edema, no shortness of breath. Gastrointestinal: no new onset incontinence, normal bowel movements reported Genitourinary: no new onset incontinence Musculoskeletal: Back pain, leg pain Psychiatric: normal mood/ affect Neurological: [denies new onset weakness in extremities], [denies new onset balance issues] Objective:: Physical Exam General: Alert and oriented x3, no acute distress, pleasant and cooperative, [on room air] Lungs: Resps E/U, Symmetrical chest expansion, Eyes: PERRL Musculoskeletal: Flexion and extension of lumbar spine somewhat guarded secondary to pain, deep tendon reflexes normal, strength in upper and lower extremities [5/5], antalgic gait noted Neurological: speech clear, archives director equal, no gross sensory deficits Assessment:: 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 She is currently on an anti-inflammatory. We will set her up for psychological evaluation to determine if she is a good candidate for neurostimulator. We will use a [employer] system. Patient has been instructed to call the office if she has any issues prior to her next appointment. Patient is continuing a home stretching program and is not on any anticoagulation therapy. Dr. Romo has reviewed this note and agrees with this plan of care. This note was dictated using voice recognition software and may contain errors or omissions [facility] History I have reviewed the patient's past medical history: Yes Medical History: Reports:: Hypertension Denies:: Cancer, Diabetes Mellitus Type 1, Diabetes Mellitus Type 2, MRSA, Seizures *Have you ever received a pneumonia vaccine?: Yes *Have you received a flu vaccine this season?: Yes Other Medical History: Reports: Sinus Problems. Denies: Blood Transfusion Reaction Other Surgeries: Yes: , Tubal Ligation, Other (toe sx, lap bandm, tubal ligation) Amputation: No Fractures: No - *Social History Smoking Status: Never smoker Alcohol Intake: never Alcohol Intake Frequency:: holidays/special occasions only *Occupational Status:: other Housing: house Household Members: spouse *Travel in the last 8 weeks: None Family Hx:: Cancer, Diabetes, Hyperlipidemia
--- NOTE | 2019-08-06 10:58 | PC.PHONENOTE ---
called in Rx for Tramadol 50mg TID with 2 refills and prednisone 20mg BID x5 days to pt's pharmacy per provider order.
== END ==
PROVIDERS: PCP Urology; Visit Provider Clinical Nurse Specialist Family Health
DX: M51.16 Intervertebral disc disorders with radiculopathy, lumbar region (principal); M47.816 Spondylosis without myelopathy or radiculopathy, lumbar region; M54.06 Panniculitis affecting regions of neck and back, lumbar region; G57.73 Causalgia of bilateral lower limbs
CPT/HCPCS: 99212

== ENCOUNTER 2019-10-11 08:17 | Day surgery (SDC) | payer BC, SELFPAY ==
[2019-10-11 08:33] VITALS: BP 122/84; PULSE 78; RESP 18; TEMP 36.1; O2SAT 100; BMI 32.5
--- NOTE | 2019-10-11 09:15 | P.PCN_ITS ---
- Procedure Date: 10/11/19 Time: 09:57 Anesthesiologist:: Foster Romo MD Complications:: None Pre-procedure Diagnosis:: Degenerative disc disease of lumbar spine with lumbar radiculopathy symptoms and lumbar spondylosis Post-procedure Diagnosis:: Same Indications for Procedure:: This patient is a pleasant 48-year-old white female who we are treating for low back pain with lumbar spondylosis and lumbar radiculopathy symptoms. She has failed all previous conservative therapy including physical therapy, injections including facet joint injections and RFA. She is also failed oral medications. She has continuous pain in her back and somewhat down her legs. She was denied for spinal cord stimulator trial so we have opted to pursue intrathecal pump trial today. We will do this today with single shot intrathecal pump trial with intrathecal fentanyl 25 mcg. Procedure Details:: Pain pump trial Informed consent was obtained and the risk and benefits of the procedure was explained to the patient. The patient was taken to the procedure room and placed prone on the procedure table. Patient was prepped and draped in sterile fashion. C-arm fluoroscopy was used to view the lumbar spine. The skin and subcutaneous tissues were anesthetized using lidocaine. I placed a 18-gauge spinal needle into the L4-5 interspace and advanced until clear CSF was obtained. After this intrathecal catheter was inserted and advanced very easily to the L1 vertebral body. The needle was withdrawn. We were able to freely withdraw clear CSF through the catheter. We then injected intrathecal fentanyl single shot bolus of 25 mcg followed by saline and followed by the previous CSF that was withdrawn. The needle and catheter were then removed and a Band-Aid wa s placed. Patient tolerated the procedure well with no complications. We reevaluated the patient after 30 minutes to 1 hour. She was also reassessed by physical therapy. Patient was much more functional. She was able to walk better and stand much longer. Back pain was down to a 1 out of 10. She was 80 to 90% better. She wants to proceed with permanent placement of intrathecal pain pump. She has had a successful psychological evaluation. We will plan on permanent placement of intrathecal pain pump with intrathecal morphine 5 mg/mL to start at 0.25 mg/day. Catheter tip will be at the L1 vertebral body. Plan and disposition: We will have her see Dr. Stewart for permanent pain pump evaluation. Again we will schedule her for permanent pump with intrathecal morphine 5 mg per ml to start at 0.25 mg/day. Catheter tip will be at the L1 vertebral body. Plan and Disposition:: Plan and disposition: We will have her see Dr. Stewart for permanent pain pump evaluation. Again we will schedule her for permanent pump with intrathecal morphine 5 mg per ml to start at 0.25 mg/day. Catheter tip will be at the L1 vertebral body.
[2019-10-11 09:18] VITALS: BP 138/89; PULSE 81; RESP 18; TEMP 36.8; O2SAT 99
[2019-10-11 09:20] VITALS: BP 140/85; PULSE 79; RESP 18; O2SAT 99
[2019-10-11 09:30] VITALS: BP 130/89; PULSE 83; RESP 18; O2SAT 96
[2019-10-11 10:58] VITALS: BP 128/79; PULSE 77; RESP 18; O2SAT 98
--- NOTE | 2019-10-11 10:59 | PC.NURSE ---
Pt c/O some itching right after procedure that was treated with Benedryl with effective relief. Pt ambulated in romano without difficutly, no pain. IV D/C'd and pt ambulated out with .
== END 2019-10-11 11:01 | disposition home or self-care (01) ==
LOC: SC.PAINP 08:18
PROVIDERS: PCP Urology; Visit Provider Anesthesiology
DX: M51.16 Intervertebral disc disorders with radiculopathy, lumbar region (principal); M47.816 Spondylosis without myelopathy or radiculopathy, lumbar region; Z88.8 Allergy status to other drugs, medicaments and biological substances; I10 Essential (primary) hypertension; F41.9 Anxiety disorder, unspecified; Z98.84 Bariatric surgery status
CPT/HCPCS: 62323

== ENCOUNTER → 2019-10-29 07:53 | Outpatient (CLI) | payer BC, SELFPAY ==
[2019-10-29 08:40] LABS: Amphetamine/Metha Screen,Urine Negative ng/ml (<1000)
[2019-10-29 08:41] LABS: Barbiturates Screen,Urine Negative ng/ml (<200); Benzodiazepines Screen,Urine Negative ng/ml (<200)
[2019-10-29 08:42] LABS: Cannabinoid Screen,Urine Negative ng/ml (<50)
[2019-10-29 08:43] LABS: Cocaine Screen,Urine Negative ng/ml (<300); Methadone Screen,Urine Negative ng/ml (<300)
[2019-10-29 08:44] LABS: Basophils # 0.1 K/mm3 (0-0.2); Basophils % 0.4 % (0.1-2.0); Eosinophils # 0.4 K/mm3 (0.0-0.4); Eosinophils % 2.7 % (0.1-12.0); Hematocrit 36.6 % (37.0-47.0); Hemoglobin 12.2 g/dL (12.2-16.2); Lymphocytes # 2.2 K/mm3 (0.7-4.5); Lymphocytes % 15.7 % (10-50); Mean Corpuscular HGB Conc 33.2 g/dL (31.8-35.4); Mean Corpuscular Hemoglobin 30.5 pg (27.0-31.2); Mean Corpuscular Volume 91.7 fl (81-99); Monocytes # 0.4 K/mm3 (0.1-1.0); Monocytes % 3.1 % (1.7-9.3); Neutrophils % 78.1 % (37.0-80.0); Opiate Screen,Urine Negative ng/ml (<300); Platelet Count 295 K/mm3 (142-424); Red Blood Count 3.99 M/mm3 (4.20-5.40); Red Cell Distribution Width 14.5 % (11.5-17.5)
[2019-10-29 08:45] LABS: Phencyclidine Screen,Urine Negative ng/ml (<25)
[2019-10-29 09:40] LABS: Anion Gap 15.4 mEq/L (5-15); Blood Urea Nitrogen 14 mg/dl (7-17); Calcium 9.4 mg/dl (8.4-10.2); Carbon Dioxide 26 mmol/L (22.0-30.0); Chloride 101 mmol/L (98-107); Estimated Glomerular Filt Rate 90 ml/min (>60); GFR (African American) 109 ML/MIN (>60); Glucose 127 mg/dl (74-100); Potassium 3.4 mmoL/L (3.5-5.1); Sodium 139 mmol/L (136-145)
[2019-10-29 09:59] LABS: Coronavirus 19 IgG Antibody Negative (Negative); Coronavirus 19 IgM Antibody Negative (Negative)
== END ==
PROVIDERS: Visit Provider Anesthesiology
DX: Z01.812 Encounter for preprocedural laboratory examination (principal); Z01.84 Encounter for antibody response examination
CPT/HCPCS: 36415; 80048; 80305; 85025; 86328

== ENCOUNTER 2019-10-30 07:13 | Day surgery (SDC) | payer BC, SELFPAY ==
--- NOTE | 2019-10-28 10:01 | SUR.PREOP ---
10/28/2019 @ 1000--PHONE CALL MADE TO PATIENT. PATIENT UNDERSTANDS THAT LAB WORK AND COVID TESTING NEEDS TO BE COMPLETED @ 0800 ON 10/29/2019. PATIENT UNDERSTANDS IF LAB WORK AND COVID-19 TESTS ARE NOT COMPLETED BY 12PM ON THAT DATE, THE SURGERY SCHEDULED WILL BE CANCELLED AND RESCHEDULED FOR ANOTHER TIME.
[2019-10-28 13:51] VITALS: BMI 33.1
[2019-10-30 07:34] VITALS: BP 133/66; PULSE 96; RESP 18; TEMP 36.8; O2SAT 100
--- NOTE | 2019-10-30 07:37 | HMH.PMCON ---
Assessment and Plan - Assessment and plan all Dx Assessment and Plan for all problems:: imPression-degenerative disc disease of the lumbar spine with radiculopathy Plan-placement of intrathecal pain pump generator and catheter today HPI - Data of Consult Patient: new to practice Consult date: 10/30/19 Requesting Physician: Foster Romo MD Primary Care Provider: Shivam Pimentel - Consult Narrative Reason for consult: Back and leg pain History of present illness: Ms. Stone is a 49 year old female with degenerative disc disease of the lumbar spine with radiculopathy. She has had multiple attempts at pain relief without success. She had a pain pump trial which was successful and she comes in today for placement of that system CC: Foster Romo MD [facility] History Medical History: Reports:: Hypertension Denies:: Cancer, Diabetes Mellitus Type 1, Diabetes Mellitus Type 2, Internal Pacemaker, MRSA, Seizures *Have you ever received a pneumonia vaccine?: No *Have you received a flu vaccine this season?: No Other Medical History: Reports: Sinus Problems. Denies: Blood Transfusion Reaction Comment:: Illnesses-hypertension, degenerative disc disease, restless leg syndrome, anxiety Other Surgeries: Yes: Bariatric Surgery, , Tubal Ligation, Other (toe sx, lap bandm, tubal ligation). No: Pacemaker Amputation: No Fractures: No Comment: Operations, weight loss surgery, , tubal ligation, toe surgery - *Social History Educational Level: Completed College Smoking Status: Never smoker Alcohol Intake: never Alcohol Intake Frequency:: holidays/special occasions only *Occupational Status:: employed Housing: house Household Members: spouse *Travel in the last 8 weeks: None Family Hx:: Cancer, Diabetes, Hyperlipidemia Review of Systems - Review of Systems Review of systems:: pertinent systems reviewed and negative unless documented below Meds Home Medications Medication Instructions Recorded Confirmed Type Amlodipine Besylate [Amlodipine 10 mg PO DAILY 10/27/17 10/30/19 History 10mg Tab] Buspirone HCl [Buspar 5mg tablet] 10 mg PO TID 10/27/17 10/30/19 History Propranolol HCl [Inderal 20mg 20 mg PO BID 10/27/17 10/30/19 History tablet] Quetiapine Fumarate [Seroquel] 50 mg PO PM 10/27/17 10/30/19 History Ropinirole HCl [Requip 1mg Tablet] 1 mg PO PM 10/27/17 10/30/19 History Tramadol HCl [Ultram] 50 mg PO TID 10/27/17 10/30/19 History Celecoxib [Celebrex 200mg cap] 200 mg PO BID 10/28/19 10/30/19 History Allergies Allergy/AdvReac Type Severity Reaction Status Date / Time ciprofloxacin [CIPROFLOXACIN] Allergy Unknown Verified 10/30/19 07:32 Tetracyclines [TETRACYCLINES] Allergy Unknown Verified 10/30/19 07:32 Objective no acute distress - *Routine Respiratory Exam Comments: Normal breath sounds - *Routine Cardiovascular Exam Present: RRR - *Routine Abdominal Exam Present: soft
[2019-10-30 07:39] LABS: Urine Pregnancy, HCG Qual. Negative (Negative)
--- NOTE | 2019-10-30 08:05 | P.PN_ITS ---
[facility] Anesthesia Checklist - Patient Identification Patient Identification: Arm Band, Verbal (Name & ) - Structural Data Admitted From: Home Planned Operative Procedure/s: pain pump Consent for Planned Operative Procedure(s) Verified: Yes Verified Documents: History and Physical - NPO Status Verified Time NPO: 00:00 - Chart Verification Results Verified: CBC, BMP - Additional verifications Patient : No Anesthesia Reactions: No Hx Blood Transfusions: No Blood Transfusion Reaction: No Cephalosporin Allergy: No Previous Colonoscopy: No - Cardiovascular Assessment Heart Sounds: S1 & S2 Pulse Strength: Baseline Pulse Rhythm: Regular Peripheral Edema: No - Airway Assessment C-Spine Mobility Assessed: Yes TMJ Mobility Assessed: Yes Dentition: Good Dentition - Neurological Assessment Level of Consciousness: Awake, Alert, Appropriate Hx Seizures: No Numbness or tingling in extremities: No - Anesthesia Plan Anesthesia Risk discussed: Yes Anesthesia Plan: Patient unable to respond/answer ASA Class: II Anesthesia Type: MAC [facility] History I have reviewed the patient's past medical history: Yes Medical History: Reports:: Hypertension Denies:: Cancer, Diabetes Mellitus Type 1, Diabetes Mellitus Type 2, Internal Pacemaker, MRSA, Seizures *Have you ever received a pneumonia vaccine?: No *Have you received a flu vaccine this season?: No Other Medical History: Reports: Sinus Problems. Denies: Blood Transfusion Reaction Anesthesia experience/problems:: none Other Surgeries: Yes: Bariatric Surgery, , Tubal Ligation, Other (toe sx, lap bandm, tubal ligation). No: Pacemaker Amputation: No Fractures: No - *Social History Educational Level: Completed College Smoking Status: Never smoker Alcohol Intake: never Alcohol Intake Frequency:: holidays/special occasions only Substance Use Type: other *Occupational Status:: employed Housing: house Household Members: spouse *Travel in the last 8 weeks: None Family Hx:: Cancer, Diabetes, Hyperlipidemia
--- NOTE | 2019-10-30 10:18 | P.OP_ITS ---
Date of procedure: 10/30/19 Pre-op Diagnosis:: Degenerative disc disease of the lumbar spine with radiculopathy Post-op Diagnosis:: Same Procedure performed:: Placement of intrathecal pain pump generator Surgeon:: Jacky Stewart MD BIOMASS TECHNICIAN:: Reggie Mas, Chris Leigh, Jun Nj, Elie Orellana, Other Anesthesia: MAC Estimated blood loss (mL): 5 Operative findings:: Not applicable Operative note:: Patient was placed prone on the operating table. Once adequate IV sedation was obtained utilizing anesthesia and local anesthesia with 1% Xylocaine with epinephrine the back was and flank was prepped and draped in sterile fashion. Paraspinal incision was made by Dr. hyde there which an intrathecal catheter was passed into the intrathecal space to the area desired by Dr. hyde. Catheter fixed to the underlying paraspinal fascia with fixation devices and 2-0 Prolene sutures. Right flank incision was made under which made a pocket for placement of the generator. Both pockets irrigated with antibiotic solution. Utilizing tunneling device the catheter was passed from the paraspinal incision to the pocket incision. Catheter fixed the generator which was placed in the pocket. Generator sutured to the fascia with 2-0 Prolene suture. CSF was aspirated from the generator noting patency of the system. Subcutaneous tissues closed with interrupted stitches of 2-0 Vicryl. Skin closed with interrupted stitches of 4- 0 nylon. Wound VAC dressing and binder applied to the wound. The patient tolerated procedure well and was taken to the recovery room in stable condition. She will be seen in follow-up 1 week for removal of the wound VAC dressing and in 2 weeks for removal of this sutures. Antibiotics x1 week per protocol. The patient tolerated the procedure well Condition: stable Disposition: PACU Complications:: None
[2019-10-30 10:19] VITALS: BP 106/67; PULSE 84; RESP 16; TEMP 36.4; O2SAT 97
--- NOTE | 2019-10-30 10:24 | HMH.OPNOTE ---
Date of procedure: 10/30/19 Pre-op Diagnosis:: Degenerative disc disease of lumbar spine with lumbar radiculopathy symptoms and lumbar spondylosis Post-op Diagnosis:: Same Procedure performed:: Intrathecal catheter placement with tunneling for permanent intrathecal pain pump Surgeon:: Foster Romo MD CORRECTIONS COUNSELOR:: Chris Leigh Anesthesia: MAC Estimated blood loss (mL): 5 Clinical Note:: This patient is a pleasant 48-year-old white female who we are treating for low back pain with lumbar spondylosis and lumbar radiculopathy symptoms. She has failed all previous conservative therapies including physical therapy, injections, facet joint injections and RFA. She is also failed oral medications. She has had a successful intrathecal pump trial and successful psychological evaluation. She was 80 to 90% better after intrathecal pump trial. She presents for permanent placement intrathecal pain pump today we will start with morphine 0.25 mg/day. Operative findings:: None Operative note:: Pain pump placement Informed consent was obtained and the risk and benefits of the procedure were explained to the patient. The patient was taken to the operating room. Patient was prepped and draped in sterile fashion. C-arm fluoroscopy was used to view the lumbar spine. The skin and subcutaneous tissues were anesthetized using lidocaine adjacent to the L4-5 and L5-S1 interspace. I made an incision and dissected down to the lumbar paraspinous fascia. A 14-gauge spinal needle was inserted and advanced into the L4-5 interspace until clear CSF was obtained. After this intrathecal catheter was inserted and advanced very easily to the T11 vertebral body. The stylette of the catheter and the needle were withdrawn. We were able to freely withdraw clear CSF through the catheter. The catheter was secured to the fascia with 2 anchoring devices and 2-0 Prolene. I prepared the pump with 20 mL of intrathecal morphine 5 mg/mL while Dr. Stewart prepared the pump pocket. I tunneled the catheter from the back to the pump pocket and attached the catheter to the pump. The pump was secured to the fascia with 2-0 Prolene. We were able to freely withdraw clear CSF through the side-port. Both incisions were then closed with 2-0 Vicryl followed by 4-0 nylon. A wound VAC was placed over both incisions. The patient was placed in an abdominal binder. Patient was taken to recovery in stable condition. Patient was given a back brace to help with stability of the spine and also help relieve pain in the low back. Patient tolerated the procedure well with no complications. The pump was interrogated and started at 0.25 mg/day of intrathecal morphine. Patient was discharged home neurologically intact and with good relief of pain symptoms. Plan and disposition: We will follow-up with this patient in 1 week for wound check and reprogramming. We will follow-up in 2 weeks for suture removal. If the patient has any problems or questions they are to call us in the pain clinic. Condition: stable Disposition: PACU Complications:: None
[2019-10-30 10:34] VITALS: BP 128/73; PULSE 79; RESP 16; O2SAT 99
[2019-10-30 10:49] VITALS: BP 116/78; PULSE 78; RESP 18; O2SAT 100
[2019-10-30 11:04] VITALS: BP 112/67; PULSE 77; RESP 18; O2SAT 98
[2019-10-30 11:24] VITALS: BP 110/69; PULSE 76; RESP 18; TEMP 36.4; O2SAT 98
== END 2019-10-30 11:24 | disposition home or self-care (01) ==
PROVIDERS: PCP Pediatrics; Visit Provider Anesthesiology
PROC: (CPT 62350; principal; 2019-10-30 09:00)
DX: M51.16 Intervertebral disc disorders with radiculopathy, lumbar region (principal); M12.88 Other specific arthropathies, not elsewhere classified, other specified site; I10 Essential (primary) hypertension; F41.9 Anxiety disorder, unspecified; G25.81 Restless legs syndrome; Z80.9 Family history of malignant neoplasm, unspecified; Z83.3 Family history of diabetes mellitus; Z83.438 Family history of other disorder of lipoprotein metabolism and other lipidemia; Z88.1 Allergy status to other antibiotic agents; Z79.899 Other long term (current) drug therapy
CPT/HCPCS: 62350; 62362; 81025; 96374; C1755; C1772; J3370

== ENCOUNTER → 2019-11-07 12:34 | Outpatient (POV) | payer BC, SELFPAY ==
--- NOTE | 2019-11-07 12:50 | HMH.PAINSOAP ---
[facility] Pain Management SOAP Note Subjective:: Patient is a pleasant 49-year-old white female who presents today for follow-up after intrathecal pain pump implant. She is being treated for low back pain with lumbar radiculopathy symptoms and lumbar spondylosis. She did try and failed all other conservative therapies including injections, physical therapy, and oral medications. She rates her pain a 0 out of 10 today. Her wound VAC did fall off earlier in the week . Patient says she is doing well overall. She says that she is happy that she went through with the implant. Review of Systems General: No recent weight changes, no fever, no sleep disturbances Respiratory: No cough, no shortness of air, no recurring pulmonary infections Cardiovascular/peripheral vascular: No chest pain, no palpitations, no edema, no shortness of breath Gastrointestinal: No new onset incontinence, normal bowel movements reported Genitourinary: No new onset incontinence Musculoskeletal: Low back pain Psychiatric: Normal mood/affect Neurological: [Denies weakness in extremities], [denies balance issues] Objective:: Physical exam General: Alert and oriented x3, no acute distress, pleasant and cooperative, [on room air] Lungs: Respirations even and unlabored, symmetrical chest expansion Eyes: PERRL Musculoskeletal: Flexion and extension of lumbar spine somewhat guarded secondary to pain, deep tendon reflexes normal, strength in upper and lower extremities [5/5], [abnormal gait noted] Neurological: Speech clear, leather parts matcher equal, no gross sensory deficit Assessment:: Degenerative disc disease lumbar spine with lumbar radiculopathy symptoms, lumbar spondylosis Plan:: Overall, the patient is doing well since having her pump implanted. She is currently on a dose of morphine at 0.25 mg/day. She denies any side effects. We will plan to see her back in 2 weeks for suture removal. Her incision is well approximated, sutures intact. She does not have any redness, edema, or drainage noted to the site. Her Roldan #[id number] has been reviewed and is appropriate. Her urine drug screens have been appropriate. Patient has been instructed to contact clinic if she has any concerns before next appointment. The patient and I specifically discussed risk factors for COVID19. These risks include, but are not limited to age greater than 60, heart or lung disease, diabetes, immunosuppression, and travel. We also discussed NSAIDs may worsen COVID19 infection or symptoms. Patient should not use NSAIDs to treat COVID19 signs or symptoms. Patient was also informed that any type of corticosteroid of any form (oral or injection) will decrease the patient's immune system response and may increase the likelihood of COVID19 infection [address] symptoms[address]. Romo has reviewed this note and agrees with this plan of care. This note was dictated using voice recognition software and make contain errors or omissions. [facility] History I have reviewed the patient's past medical history: Yes Medical History: Reports:: Hypertension Denies:: Cancer, Diabetes Mellitus Type 1, Diabetes Mellitus Type 2, Internal Pacemaker, MRSA, Seizures *Have you ever received a pneumonia vaccine?: No *Have you received a flu vaccine this season?: No Other Medical History: Reports: Sinus Problems. Denies: Blood Transfusion Reaction Other Surgeries: Yes: Bariatric Surgery, , Tubal Ligation, Other (toe sx, lap bandm, tubal ligation). No: Pacemaker Amputation: No Fractures: No - *Social History Smoking Status: Never smoker Alcohol Intake: never Alcohol Intake Frequency:: holidays/special occasions only Substance Use Type: other *Occupational Status:: employed Housing: house Household Members: spouse *Travel in the last 8 weeks: [facility] the [facility] Family Hx:: Cancer, Diabetes, Hyperlipidemia
[2019-11-07 13:00] VITALS: BP 140/71; PULSE 77; RESP 18; O2SAT 99; BMI 32.4
== END ==
PROVIDERS: Visit Provider Clinical Nurse Specialist Family Health
DX: M51.16 Intervertebral disc disorders with radiculopathy, lumbar region (principal); M47.816 Spondylosis without myelopathy or radiculopathy, lumbar region
CPT/HCPCS: 99212

== ENCOUNTER → 2019-11-21 08:10 | Outpatient (POV) | payer BC, SELFPAY ==
--- NOTE | 2019-11-21 08:25 | HMH.PMPROC ---
- Procedure Date: 11/21/19 Time: 08:25 Anesthesiologist:: Shannon Figueroa APRN Complications:: None Pre-procedure Diagnosis:: Degenerative disc disease lumbar spine with lumbar radiculopathy symptoms, lumbar spondylosis Post-procedure Diagnosis:: Same Indications for Procedure:: Patient is a pleasant 49-year-old white female who presents today for follow-up. She recently underwent intrathecal pain pump implant. Patient says she is doing well overall with her intrathecal therapy. She is currently on morphine at 0.25 mg/day. She denies any side effects to the medication. She is here today to have her the device set up. She rates her pain a 2 out of 10 today. Her Roldan #[id number] 08/18/1934 has been reviewed and is appropriate. The patient's urine drug screens have been appropriate. Morphine equivalent is 0. She is also complaining of bilateral hip pain. She says that it is worse with running. She says the pain does not radiate into her back. She reports the pain as stabbing-like sensations to both hips going into the bone. Physical exam General: Alert and oriented x3, no acute distress, pleasant and cooperative, [on room air] Lungs: Respirations even and unlabored, symmetrical chest expansion Eyes: PERRL Musculoskeletal: Flexion and extension of lumbar spine somewhat guarded secondary to pain, deep tendon reflexes normal, strength in upper and lower extremities [5/5], [abnormal gait noted] Neurological: Speech clear, secondary special education teacher equal, no gross sensory deficit Procedure Details:: Informed consent was obtained and the risk and benefits of the procedure were explained to the patient. Patient was taken to the procedure room where noninvasive monitoring was placed including noninvasive blood pressure cuff and pulse oximeter. Patient's pump was interrogated and was reprogrammed to morphine at 0.25 mg/day. Her PTC device was started at 0.02 mg up to 4 times daily. The patient tolerated the procedure well with no complications. Plan and Disposition:: Overall, the patient is doing well. Her incision is well approximated, no redness, no drainage, no edema is noted to the site. She does have Steri-Strips noted to her incision. We will schedule the patient for bilateral intra-articular hip injections. I did educate the patient that she can use diclofenac gel until she is able to undergo bilateral hip injections. Patient understands we will need to postpone the injections for approximately 6 weeks until she is well-healed from her implant. We will plan to see the patient back in the clinic at her next intrathecal pain pump refill and reprogram. Patient has been instructed to contact clinic if she has any concerns before her next appointment. The patient and I specifically discussed risk factors for COVID19. These risks include, but are not limited to age greater than 60, heart or lung disease, diabetes, immunosuppression, and travel. We also discussed NSAIDs may worsen COVID19 infection or symptoms. Patient should not use NSAIDs to treat COVID19 signs or symptoms. Patient was also informed that any type of corticosteroid of any form (oral or injection) will decrease the patient's immune system response and may increase the likelihood of COVID19 infection [address] symptoms[address] Romo has reviewed this note and agrees with this plan of care. This note was dictated using voice recognition software and make contain errors or omissions.
[2019-11-21 08:34] VITALS: BP 124/74; PULSE 79; RESP 18; O2SAT 99; BMI 32.9
== END ==
PROVIDERS: Visit Provider Clinical Nurse Specialist Family Health
DX: M51.16 Intervertebral disc disorders with radiculopathy, lumbar region (principal); M47.896 Other spondylosis, lumbar region
CPT/HCPCS: 99212

== ENCOUNTER → 2019-12-05 10:00 | Outpatient (POV) | payer BC, SELFPAY ==
[2019-12-05 10:48] VITALS: BP 128/85; PULSE 85; RESP 18; TEMP 36.6; O2SAT 98; BMI 33.3
--- NOTE | 2019-12-05 13:23 | P.PCN_ITS ---
- Procedure Date: 12/05/19 Time: 13:23 Anesthesiologist:: Shannon Figueroa APRN Complications:: None Pre-procedure Diagnosis:: Degenerative disc disease lumbar spine with lumbar radiculopathy symptoms, lumbar spondylosis Post-procedure Diagnosis:: Same Indications for Procedure:: Patient is a 49-year-old white female who presents today for intrathecal pain pump adjustment. She has been treated for low back pain along with lumbar radiculopathy symptoms. Patient rates her pain a 4 out of 10 today. She would like an increase in her dose. Her Roldan and drug screens have been appr opriate. Her morphine equivalent is 0. She would like an increase today. She is currently on morphine at 0.25 mg/day. We will increase her dose if she gets relief. Physical exam General: Alert and oriented x3, no acute distress, pleasant and cooperative, [on room air] Lungs: Respirations even and unlabored, symmetrical chest expansion Eyes: PERRL Musculoskeletal: Flexion and extension of lumbar spine somewhat guarded secondary to pain, deep tendon reflexes normal, strength in upper and lower extremities [5/5], [abnormal gait noted] Neurological: Speech clear, polishing machine operator equal, no gross sensory deficit Procedure Details:: Informed consent was obtained and the risk and benefits of the procedure were explained to the patient. Patient was taken to the procedure room where noninvasive monitoring was placed including noninvasive blood pressure cuff and pulse oximeter. Patient's pump was interrogated and was reprogrammed to morphine at 0.31 mg/day. The patient tolerated the procedure well with no complications. Plan and Disposition:: We will see the patient back in the clinic in 2 weeks. She has been instructed to contact clinic if she has any concerns before next appointment. The patient and I specifically discussed risk factors for COVID19. These risks include, but are not limited to age greater than 60, heart or lung disease, diabetes, immunosuppression, and travel. We also discussed NSAIDs may worsen COVID19 infection or symptoms. Patient should not use NSAIDs to treat COVID19 signs or symptoms. Patient was also informed that any type of corticosteroid of any form (oral or injection) will decrease the patient's immune system response and may increase the likelihood of COVID19 infection [address] symptoms[address] Romo has reviewed this note and agrees with this plan of care. This note was dictated using voice recognition software and make contain errors or omissions.
== END ==
PROVIDERS: Visit Provider Clinical Nurse Specialist Family Health
DX: M51.16 Intervertebral disc disorders with radiculopathy, lumbar region (principal); M47.896 Other spondylosis, lumbar region; I10 Essential (primary) hypertension; Z98.84 Bariatric surgery status; Z80.9 Family history of malignant neoplasm, unspecified; Z83.3 Family history of diabetes mellitus; Z83.438 Family history of other disorder of lipoprotein metabolism and other lipidemia; Z45.1 Encounter for adjustment and management of infusion pump
CPT/HCPCS: 62368

== ENCOUNTER 2019-12-13 09:45 | Day surgery (SDC) | payer BC, SELFPAY ==
[2019-12-13 10:07] VITALS: BP 111/66; PULSE 82; RESP 18; TEMP 36.9; O2SAT 97; BMI 33.3
[2019-12-13 10:49] VITALS: BP 135/88; BP 140/88; PULSE 85; RESP 18; O2SAT 98
--- NOTE | 2019-12-13 10:55 | HMH.PMPROC ---
- Procedure Date: 12/13/19 Time: 10:55 Anesthesiologist:: Foster Romo MD Complications:: None Pre-procedure Diagnosis:: Bilateral hip pain with degenerative osteoarthritis and low back pain with lumbar radiculopathy symptoms Post-procedure Diagnosis:: Same Indications for Procedure:: This patient is a pleasant 49-year-old white female who we have been treating for low back pain with lumbar radiculopathy symptoms. She currently has an intrathecal morphine pain pump going at 0.3 mg/day. She is doing well with this. She has PTC boluses of 0.021 mg 4 times a day. She does well with these boluses however she would like more boluses throughout the day. We will adjust her PTC and increase her boluses to 6 times a day. She is also having bilateral degenerative osteoarthritis with bilateral hip pain. We will do bilateral intra-articular injections today help her with her pain symptoms. Procedure Details:: Bilateral intra-articular hip injections Reprogramming and analysis of intrathecal morphine pain pump Form consent was obtained and the risk and benefits of the procedure were explained to the patient. Patient was taken to the procedure room. Both hips was prepped using ChloraPrep. A 22-gauge needle was inserted into the hip joint first on the right side than on the left side. Needle placement was confirmed with dye. After this we injected 5 mL bupivacaine 0.25% and Depo-Medrol 40 mg into each hip. We used a total of 80 mg Depo-Medrol for both hips. Patient tolerated the procedure well with no complications. Intrathecal morphine pain pump was interrogated. PTC boluses were increased to 0.021 mg up to 6 times a day with a 4-hour lockout. Daily dose without PTC remained the same at 0.3 mg/day on a constant flow. Tolerated both procedures well with no complications. Plan and Disposition:: We will follow-up with her in 1 to 2 weeks. Will reevaluate symptoms at that time.
[2019-12-13 11:00] VITALS: BP 115/76; PULSE 82; RESP 18; O2SAT 97
== END 2019-12-13 11:00 | disposition home or self-care (01) ==
LOC: SC.PAINP 09:46
PROVIDERS: PCP Pediatrics; Visit Provider Anesthesiology
DX: M16.0 Bilateral primary osteoarthritis of hip (principal); M54.5 Low back pain; M54.16 Radiculopathy, lumbar region; I10 Essential (primary) hypertension; Z98.84 Bariatric surgery status; Z88.1 Allergy status to other antibiotic agents; Z79.899 Other long term (current) drug therapy
CPT/HCPCS: 20610; 62368; 77002; J1030; Q9966

== ENCOUNTER → 2020-02-06 09:34 | Outpatient (POV) | payer BC, SELFPAY ==
[2020-02-06 10:07] VITALS: BP 142/72; PULSE 77; RESP 18; O2SAT 98; BMI 34.4
--- NOTE | 2020-02-06 11:24 | HMH.PMPROC ---
- Procedure Date: 02/06/20 Time: 11:24 Anesthesiologist:: Shannon Figueroa APRN Complications:: None Pre-procedure Diagnosis:: Degenerative disc disease lumbar spine with lumbar radiculopathy symptoms, bilateral hip pain with degenerative osteoarthritis Post-procedure Diagnosis:: Same Indications for Procedure:: Patient is a 49-year-old white female who presents today for intrathecal pain pump adjustment. She has been treated for chronic low back pain with lumbar radiculopathy symptoms and osteoarthritis bilateral hips. Patient does have an intrathecal pain pump that is going at 0.3 mg/day. Patient says that she is having worsening pain due to increased work at her job. 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 She says she is having to do extra hours due to [employer]'s quitting at her job. She says her pain is worsening because of heavy lifting with patients. She does rate her pain a 5 out of 10 today. She would like an increase in her dose. The patient denies any side effects to the medication. Patient's drug screen and Roldan are appropriate. Physical exam General: Alert and oriented x3, no acute distress, pleasant and cooperative, [on room air] Lungs: Respirations even and unlabored, symmetrical chest expansion Eyes: PERRL Musculoskeletal: Flexion and extension of lumbar spine somewhat guarded secondary to pain, deep tendon reflexes normal, strength in upper and lower extremities [5/5], [abnormal gait noted] Neurological: Speech clear, dynamics ax consultant equal, no gross sensory deficit Procedure Details:: Informed consent was obtained and the risk and benefits of the procedure were explained to the patient. Patient was taken to the procedure room where noninvasive monitoring was placed including noninvasive blood pressure cuff and pulse oximeter. Patient's pump was interrogated and was reprogrammed to morphine at 0.4 mg/day. The patient tolerated the procedure well with no complications. Plan and Disposition:: We will plan to see the patient back at her next intrathecal pain pump refill and reprogram. The patient has been instructed to contact the clinic if she has any concerns before next appointment. The patient and I specifically discussed risk factors for COVID19. These risks include, but are not limited to age greater than 60, heart or lung disease, diabetes, immunosuppression, and travel. We also discussed NSAIDs may worsen COVID19 infection or symptoms. Patient should not use NSAIDs to treat COVID19 signs or symptoms. Patient was also informed that any type of corticosteroid of any form (oral or injection) will decrease the patient's immune system response and may increase the likelihood of COVID19 [address] symptoms[address] Romo has reviewed this note and agrees with this plan of care. This note was dictated using voice recognition software and make contain errors or omissions.
== END ==
PROVIDERS: Visit Provider Clinical Nurse Specialist Family Health
DX: M51.16 Intervertebral disc disorders with radiculopathy, lumbar region (principal); M16.0 Bilateral primary osteoarthritis of hip; Z88.1 Allergy status to other antibiotic agents; Z79.899 Other long term (current) drug therapy
CPT/HCPCS: 62368

== ENCOUNTER 2020-03-16 13:15 | Day surgery (SDC) | payer BC, SELFPAY ==
[2020-03-16 13:33] VITALS: BP 192/99; PULSE 100; RESP 20; TEMP 36.9; O2SAT 100; BMI 36.6
--- NOTE | 2020-03-16 13:44 | P.PCN_ITS ---
- Procedure Date: 03/16/20 Time: 13:44 Anesthesiologist:: Ursula Nicholson APRN Complications:: None Pre-procedure Diagnosis:: Degenerative disc disease lumbar spine lumbar radiculopathy symptoms Post-procedure Diagnosis:: Same Indications for Procedure:: Patient is a very pleasant 49-year-old white female who presents today for intrathecal pain pump refill and reprogram. She is currently on intrathecal infusion of 0.4 mg morphine a day. She denies side effects to her medication. Her Roldan were reviewed and appropriate. She rates her pain today a 4 out of 10. Patient's Roldan #[id number] reviewed and appropriate. Physical Exam General: Alert and oriented x3, no acute distress, pleasant and cooperative, [on room air] Lungs: Resps E/U, Symmetrical chest expansion, Eyes: PERRL Musculoskeletal: Flexion and extension of lumbar spine somewhat guarded secondary to pain, deep tendon reflexes normal, strength in upper and lower extremities [5/5], slightly antalgic gait noted Neurological: speech clear, wireless communications engineer equal, no gross sensory deficits Procedure Details:: Informed consent was obtained and the risk and benefits of the procedure were explained to the patient. The patient was taken to the procedure room where noninvasive monitoring was placed including noninvasive blood pressure cuff and pulse oximeter. Patient's pump was interrogated. The area over the pump was cleansed with chlorhexidine as a cleansing solution. In sterile fashion the pump was accessed with a 22-gauge needle. Approximately 9 mL's were removed of the pump solution and discarded appropriately. The pump was then refilled with 20 mL's of morphine 5 mg/mL. The needle was withdrawn and a bandage was placed over the puncture site. The infusion rate was reprogrammed to continue at 0.4 mg/day. The patient tolerated the procedure well. Plan and Disposition:: We will see the patient back in several weeks reassess her symptoms at that time she has been instructed to call the office if she has any issues prior to her next appointment. Dr. Romo has reviewed this note and agrees with this plan of care. This note was dictated using voice recognition software and may contain errors or omissions
[2020-03-16 13:52] VITALS: BP 162/92; BP 167/95; PULSE 107; PULSE 87; RESP 18; O2SAT 98; O2SAT 99
[2020-03-16 14:05] VITALS: BP 150/96; PULSE 92; RESP 20; O2SAT 100
== END 2020-03-16 14:05 | disposition home or self-care (01) ==
LOC: SC.PAINP 13:16
PROVIDERS: PCP Pediatrics; Visit Provider Clinical Nurse Specialist Family Health
DX: M51.16 Intervertebral disc disorders with radiculopathy, lumbar region (principal); I10 Essential (primary) hypertension; F41.9 Anxiety disorder, unspecified; F32.9 Major depressive disorder, single episode, unspecified
CPT/HCPCS: 95991

== ENCOUNTER → 2020-04-23 08:23 | Outpatient (POV) | payer BC, SELFPAY ==
[2020-04-23 08:40] VITALS: BP 143/75; PULSE 76; RESP 20; TEMP 36.7; O2SAT 96; BMI 36.6
--- NOTE | 2020-04-23 08:43 | HMH.PAINSOAP ---
[facility] Pain Management SOAP Note Subjective:: Patient is a very pleasant 49-year-old white female who presents today for follow-up. Patient has an intrathecal pain pump with a morphine infusion at 0.4 mg/day. She rates her pain in her back a 0 out of 10. Patient however states that she is having bilateral pain. Patient has a history of greater trochanteric bursitis. She is interested in injection therapy patient has had this in the past and she is gotten up to 80% relief for 4 months. She would like to repeat this. She is extremely tender over bilateral greater trochanteric bursa's. ROS General: no recent weight change, no fever, no sleep disturbances Respiratory: no cough, no shortness of air, no recurring pulmonary infections Cardiovascular/Peripheral Vascular: No chest pain, No palpitations, no edema, no shortness of breath. Gastrointestinal: no new onset incontinence, normal bowel movements reported Genitourinary: no new onset incontinence Musculoskeletal: Bilateral hip pain Psychiatric: normal mood/ affect Neurological: [denies new onset weakness in extremities], [denies new onset balance issues] Objective:: Physical Exam General: Alert and oriented x3, no acute distress, pleasant and cooperative, [on room air] Lungs: Resps E/U, Symmetrical chest expansion, Eyes: PERRL Musculoskeletal: Flexion and extension of lumbar spine somewhat guarded secondary to pain, deep tendon reflexes normal, strength in upper and lower extremities [5/5], slightly antalgic gait noted, extreme tenderness over bilateral greater trochanteric bursa Neurological: speech clear, technician helper instrument equal, no gross sensory deficits Assessment:: Greater trochanteric bursitis bilaterally Plan:: We will schedule a bilateral greater trochanteric bursa injection I do believe this would benefit her given her symptomology and history. Patient has been instructed to call the office if she has any issues prior to her next appointment. Dr. Romo has reviewed this note and agrees with this plan of care. This note was dictated using voice recognition software and may contain errors or omissions [facility] History I have reviewed the patient's past medical history: Yes Medical History: Reports:: Hypertension Denies:: Cancer, Diabetes Mellitus Type 1, Diabetes Mellitus Type 2, Internal Pacemaker, MRSA, Seizures *Have you ever received a pneumonia vaccine?: No *Have you received a flu vaccine this season?: No Other Medical History: Reports: Sinus Problems. Denies: Blood Transfusion Reaction Other Surgeries: Yes: Bariatric Surgery, , Tubal Ligation, Other (toe sx). No: Pacemaker Amputation: No Fractures: No - *Social History Smoking Status: Never smoker Alcohol Intake: never Alcohol Intake Frequency:: holidays/special occasions only Substance Use Type: other *Occupational Status:: employed Housing: house Household Members: spouse *Travel in the last 8 weeks: None Family Hx:: Cancer, Diabetes, Hyperlipidemia
== END ==
PROVIDERS: PCP Pediatrics; Visit Provider Clinical Nurse Specialist Family Health
DX: M70.62 Trochanteric bursitis, left hip (principal); M70.61 Trochanteric bursitis, right hip
CPT/HCPCS: 99212

== ENCOUNTER 2020-05-04 13:57 | Day surgery (SDC) | payer BC, SELFPAY ==
[2020-05-04 14:19] VITALS: BP 154/86; PULSE 81; RESP 18; TEMP 36.4; O2SAT 98; BMI 39.9
[2020-05-04 14:37] VITALS: BP 125/75; PULSE 74; RESP 18
--- NOTE | 2020-05-04 14:39 | P.PCN_ITS ---
- Procedure Date: 05/04/20 Time: 14:39 Anesthesiologist:: Ursula Nicholson APRN Complications:: None Pre-procedure Diagnosis:: Disc disease lumbar spine lumbar radiculopathy, bursitis Post-procedure Diagnosis:: Same Indications for Procedure:: Patient is a pleasant 49-year-old white female presents today for a follow-up. Patient is here today to get bilateral greater trochanteric bursa injections. She is had this in the past with good relief. She is extremely tender over her bilateral bursa's. Her back is also begin to hurt more. She is currently on a morphine infusion of 0.4 mg/day intrathecally. We discussed a 10% increase. We will move forward with this. She rates her pain a 7 out of 10 today. She denies side effects to her medications. Procedure Details:: Informed consent was obtained and the risk and benefits of the procedure were explained to the patient. The patient was taken to the procedure room where noninvasive monitoring was placed including noninvasive blood pressure cuff and pulse oximeter. Patient's pump was interrogated and reprogrammed. The infusion rate was increased 0.44 mg/day. The patient tolerated the procedure well. We then moved onto the bilateral bursa injections. After informed consent was obtained and the risk and benefits were explained to the patient the patient was taken to the procedure room and placed in supine position. Under fluoroscopic guidance the area of maximal tenderness was identified. The skin overlying the bilateral hip region was prepped with ChloraPrep and draped in sterile fashion. Strict aseptic technique was observed throughout the entire procedure. The skin was anesthetized with 1% lidocaine without epinephrine. A 22-gauge spinal needle was passed to the area of the left greater trochanteric bursa using fluoroscopic guidance. 1.5 mL's of Omnipaque 300 preservative-free contrast was injected into the joint to confirm location 3 mL's of a solution containing 0.25% bupivacaine and 40 mg of Depo- Medrol were injected into the bursa the patient tolerated this well with no complications. The needle was withdrawn and bandages were placed over the puncture site. This was then repeated on the right side. On examination after the procedure, 60% pain relief was reported. Plan and Disposition:: I will follow up with the patient at her next intrathecal pain pump refill and reprogram she has been instructed to call the office if she has any issues prior to next appointment. Dr. Romo has reviewed this note and agrees with this plan of care. This note was dictated using voice recognition software and may contain errors or omissions
[2020-05-04 14:42] VITALS: BP 128/78; PULSE 71; RESP 18; O2SAT 98
[2020-05-04 14:53] VITALS: BP 145/84; PULSE 77; RESP 18; O2SAT 98
== END 2020-05-04 14:54 | disposition home or self-care (01) ==
LOC: SC.PAINP 13:59
PROVIDERS: PCP Pediatrics; Visit Provider Clinical Nurse Specialist Family Health
DX: M51.16 Intervertebral disc disorders with radiculopathy, lumbar region (principal); M70.62 Trochanteric bursitis, left hip; M70.61 Trochanteric bursitis, right hip
CPT/HCPCS: 20610; 62368; 77002; J1030; Q9966

== ENCOUNTER → 2020-05-28 13:53 | Outpatient (POV) | payer BC, SELFPAY ==
--- NOTE | 2020-05-28 14:12 | P.CONS_ITS ---
[facility] Pain Management SOAP Note Subjective:: Patient is a pleasant 49-year-old white female who presents today for follow-up. Patient had bilateral trochanteric bursa injections and is doing extremely well she rates her pain a 3 out of 10. She does have an intrathecal pain pump which is also working well for her she does not need any adjustments today. ROS General: no recent weight change, no fever, no sleep disturbances Respiratory: no cough, no shortness of air, no recurring pulmonary infections Cardiovascular/Peripheral Vascular: No chest pain, No palpitations, no edema, no shortness of breath. Gastrointestinal: no new onset incontinence, normal bowel movements reported Genitourinary: no new onset incontinence Musculoskeletal: Back pain at times hip pain at times Psychiatric: normal mood/ affect, Neurological: [denies new onset weakness in extremities], [denies new onset balance issues] Objective:: Physical Exam General: Alert and oriented x3, no acute distress, pleasant and cooperative, [on room air] Lungs: Resps E/U, Symmetrical chest expansion, Eyes: PERRL Musculoskeletal: Flexion and extension of lumbar spine somewhat guarded secondary to pain, deep tendon reflexes normal, strength in upper and lower extremities [5/5], slightly antalgic gait noted Neurological: speech clear, machine oiler equal, no gross sensory deficits Assessment:: Degenerative disc disease lumbar spine lumbar radiculopathy Plan:: We will see the patient back at her next intrathecal pain pump refill and reprogram she has been instructed to call the office if she has any issues prior to her next appointment. Dr. Romo has reviewed this note and agrees with this plan of care. This note was dictated using voice recognition software and may contain errors or omissions [facility] History I have reviewed the patient's past medical history: Yes Medical History: Reports:: Hypertension Denies:: Cancer, Diabetes Mellitus Type 1, Diabetes Mellitus Type 2, Internal Pacemaker, MRSA, Seizures *Have you ever received a pneumonia vaccine?: No *Have you received a flu vaccine this season?: No Other Medical History: Reports: Sinus Problems. Denies: Blood Transfusion Reaction Other Surgeries: Yes: Bariatric Surgery, , Tubal Ligation, Other (toe sx). No: Pacemaker Amputation: No Fractures: No - *Social History Smoking Status: Never smoker Alcohol Intake: never Alcohol Intake Frequency:: holidays/special occasions only Substance Use Type: other *Occupational Status:: employed Housing: house Household Members: spouse *Travel in the last 8 weeks: None Family Hx:: Cancer, Diabetes, Hyperlipidemia
[2020-05-28 14:14] VITALS: BP 133/78; PULSE 72; RESP 18; TEMP 36.8; O2SAT 98; BMI 35.7
== END ==
PROVIDERS: PCP Pediatrics; Visit Provider Clinical Nurse Specialist Family Health
DX: M51.16 Intervertebral disc disorders with radiculopathy, lumbar region (principal)
CPT/HCPCS: 99212; G0463

== ENCOUNTER 2020-06-15 13:33 | Day surgery (SDC) | payer BC, SELFPAY ==
[2020-06-15 13:39] VITALS: BP 130/81; PULSE 94; RESP 18; TEMP 36.6; BMI 36.4
[2020-06-15 13:55] VITALS: BP 129/76; PULSE 95; RESP 18; O2SAT 99
[2020-06-15 13:56] VITALS: BP 130/78; PULSE 92; RESP 18; O2SAT 99
--- NOTE | 2020-06-15 13:59 | P.PCN_ITS ---
- Procedure Date: 06/15/20 Time: 13:59 Anesthesiologist:: Ursula Nicholson APRN Complications:: None Pre-procedure Diagnosis:: Degenerative disc disease lumbar spine lumbar radiculopathy Post-procedure Diagnosis:: Same Indications for Procedure:: Patient is a pleasant 49-year-old white female who presents today for intrathecal pain pump refill and reprogram she rates her pain 2 out of 10 and is doing well. She denies any need for adjustments. She denies any side effects. [facility] #[id number] reviewed and appropriate. Procedure Details:: Informed consent was obtained and the risk and benefits of the procedure were explained to the patient. The patient was taken to the procedure room where noninvasive monitoring was placed including noninvasive blood pressure cuff and pulse oximeter. Patient's pump was interrogated. The area over the pump was cleansed with chlorhexidine as a cleansing solution. In sterile fashion the pump was accessed with a 22-gauge needle. Approximately 10.5 mL's were removed of the pump solution and discarded appropriately. The pump was then refilled with 20 mL's of morphine 5 mg/mL. The needle was withdrawn and a bandage was placed over the puncture site. The infusion rate was reprogrammed to continue 0.45 mg/day. The patient tolerated the procedure well. Plan and Disposition:: Patient's been instructed to call the office if she has any issues prior to her next appointment. We will follow-up with her at her next intrathecal pain pump refill and reprogram Dr. Romo has reviewed this note and agrees with this plan of care. This note was dictated using voice recognition software and may contain errors or omissions
[2020-06-15 14:15] VITALS: BP 133/91; PULSE 85; RESP 20; O2SAT 98
== END 2020-06-15 14:15 | disposition home or self-care (01) ==
LOC: SC.PAINP 13:37
PROVIDERS: PCP Pediatrics; Visit Provider Clinical Nurse Specialist Family Health
DX: M51.16 Intervertebral disc disorders with radiculopathy, lumbar region (principal); Z79.899 Other long term (current) drug therapy; I10 Essential (primary) hypertension; K21.9 Gastro-esophageal reflux disease without esophagitis; Z88.1 Allergy status to other antibiotic agents; Z98.84 Bariatric surgery status
CPT/HCPCS: 62370

== ENCOUNTER 2020-10-26 12:46 | Day surgery (SDC) | payer BC, SELFPAY ==
[2020-10-26 13:03] VITALS: BP 127/78; PULSE 78; RESP 18; TEMP 36.6; O2SAT 97; BMI 36.6
[2020-10-26 13:27] VITALS: BP 143/93; PULSE 84; RESP 18; O2SAT 100
[2020-10-26 13:28] VITALS: BP 152/89; PULSE 83; RESP 18; O2SAT 100
--- NOTE | 2020-10-26 13:33 | HMH.PMPROC ---
- Procedure Date: 10/26/20 Time: 13:33 Anesthesiologist:: Shannon Figueroa APRN Complications:: None Pre-procedure Diagnosis:: Disc disease lumbar spine with lumbar radiculopathy symptoms, left low back pain acute Post-procedure Diagnosis:: Same Indications for Procedure:: Patient is a 50-year-old white female who presents today for intrathecal pain pump refill and reprogram. She has been treated for degenerative disc disease lumbar spine with lumbar radiculopathy symptoms. Patient says that she was on vacation and stepped from a curb and felt a popping sensation in her left low back area. She rates her pain a 7 out of 10 to that area but a 4 out of 10 to her low back pain for which she has chronic pain. Patient says she is unsure if she broke something . She would like imaging of the area. We will schedule her for an x-ray of her lumbar spine and order her prednisone 20 mg 1 tablet p.o. twice daily for 5 days. She is currently on morphine 3.45 mg/day and denies any side effects. Patient structuring Roldan appropriate. 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 The patient was taken to the procedure room where noninvasive monitoring was placed including noninvasive blood pressure cuff and pulse oximeter. Patient's pump was interrogated. The area over the pump was cleansed with chlorhexidine as a cleansing solution. In sterile fashion the pump was accessed with a 22-gauge needle. Approximately 6 mls of the pump solution was removed and discarded appropriately. The pump was then refilled with 20 mL's of morphine milligrams per male. The needle was withdrawn and a bandage was placed over the puncture site. The infusion rate was reprogrammed at morphine at 0.45 mg/day. The patient tolerated well with no complication. Plan and Disposition:: We will order prednisone 20 mg 1 tablet p.o. twice daily for 5 days. We will order an x-ray of her lumbar spine and see her back in the clinic to discuss her x-ray results. Patient has been instructed to contact the clinic with any concerns before the next appointment. Dr. Romo has reviewed this note and agrees with this plan of care. This note was dictated using voice recognition software and make contain errors or omissions.
[2020-10-26 13:40] VITALS: BP 130/77; PULSE 78; RESP 18; O2SAT 97
--- NOTE | 2020-10-26 13:41 | XR_ITS ---
PROCEDURE: XR LUMBAR SPINE MIN 4V CLINICAL INDICATION: ACUTE ONSET OF LUMBAR BACK PAIN COMPARISON: CR XR PAIN MGT INJ from 05/04/2020 FINDINGS: Five views are obtained. No acute fracture or subluxation. Mild diffuse degenerative changes, particularly at L2-3. SI joints are normal. Pain pump reservoir and catheter noted with catheter tip at the level of T12. Prior gastric lap band noted. Mild bilateral facet spondylosis at L4-5 and L5-S1. SI joints are normal. IMPRESSION: Mild degenerative changes diffusely particularly at L2-3. Mild bilateral facet spondylosis at L4-5 and L5-S1. No acute fracture or subluxation. Dictated by: Ronny Choe 10/26/2020 15:53 Ronny Choe in [facility] 10/26/2020 15:53
== END 2020-10-26 13:40 | disposition home or self-care (01) ==
PROVIDERS: PCP Pediatrics; Visit Provider Clinical Nurse Specialist Family Health
DX: M51.16 Intervertebral disc disorders with radiculopathy, lumbar region (principal); Z45.1 Encounter for adjustment and management of infusion pump; M54.5 Low back pain
CPT/HCPCS: 72110; 95991

== ENCOUNTER 2020-11-11 04:00 | Emergency (ER) | payer BC, SELFPAY ==
[2020-11-11 04:04] VITALS: BP 171/99; PULSE 132; RESP 18; TEMP 36.8; O2SAT 96; BMI 46.5
[2020-11-11 07:04] VITALS: BP 102/63; PULSE 108; RESP 18; O2SAT 95
[2020-11-11 07:10] VITALS: BP 102/63; PULSE 107; RESP 16; O2SAT 95
--- NOTE | 2020-11-11 07:18 | XR_ITS ---
PROCEDURE INFORMATION: Exam: XR Lumbosacral Spine Exam date and time: 11/11/2020 4:33 AM Age: 50 years old Clinical indication: Low back pain; Prior surgery; Surgery date: 1-6 months; Patient HX: Extreme back pain and confusion PT has pain pump TECHNIQUE: Imaging protocol: XR of the lumbosacral spine. Views: 4 or 5 views. COMPARISON: CR XR LUMBAR SPINE MIN 4V 10/26/2020 1:44 PM FINDINGS: Tubes, catheters and devices: Stimulator wires and battery are in place. Bones/joints: Normal. No acute fracture. Normal alignment. Soft tissues: Unremarkable. Other findings: Prior lap band surgery. IMPRESSION: No acute abnormality.
[2020-11-11 07:48] LABS: Microscopic, Urine URINE MICROSCOPIC (MICROSCOPIC)
[2020-11-11 07:53] LABS: Amphetamine/Metha Screen,Urine Negative ng/ml (<1000); Barbiturates Screen,Urine Negative ng/ml (<200); Benzodiazepines Screen,Urine Negative ng/ml (<200); Cannabinoid Screen,Urine Negative ng/ml (<50); Methadone Screen,Urine Negative ng/ml (<300); Opiate Screen,Urine Positive ng/ml (<300); Phencyclidine Screen,Urine Negative ng/ml (<25)
[2020-11-11 07:54] LABS: Cocaine Screen,Urine Negative ng/ml (<300)
--- NOTE | 2020-11-11 07:54 | PC.NURSE ---
20G IV in RAC started at this time, blood return noted and flushes easily.
[2020-11-11 07:55] LABS: Alanine Aminotransferase 48 U/L (12-78); Albumin Level 4.7 g/dl (3.5-5.0); Albumin/Globulin Ratio 1.7 (1.1-1.8); Alkaline Phosphatase 57 U/L (38-126); Anion Gap 17.5 mEq/L (5-15); Aspartate Amino Transferase 39 U/L (14-36); Bilirubin,Total 1.5 mg/dl (0.2-1.3); Blood Urea Nitrogen 7 mg/dl (7-17); C-Reactive Protein 6.1 mg/L (0-4); Calcium 9.1 mg/dl (8.4-10.2); Carbon Dioxide 19 mmol/L (22.0-30.0); Chloride 106 mmol/L (98-107); Creatinine Clearance Estimated 103 mL/min (50-200); Estimated Glomerular Filt Rate 107 ml/min (>60); GFR (African American) 129 ML/MIN (>60); Globulin 2.8 g/dL (1.3-3.2); Glucose 196 mg/dl (74-100); Potassium 3.5 mmoL/L (3.5-5.1); Procalcitonin 0.055 ng/mL (0.0-2.0); Sodium 139 mmol/L (136-145); Total Protein,Serum 7.5 g/dl (6.3-8.2)
--- NOTE | 2020-11-11 07:56 | PC.NURSE ---
At bedside assisting with IV insertion, pt begins throwing her covers off stating I gotta pee . Pt trying to get up from bed. Staff assisted pt to standing position. pt to restroom with staff assist x2. Pt is unsteady on her feet. Pt is drowsy in nature. Pt knows who she is and who is. Not oriented to place/situation/time. will continue to monitor.
--- NOTE | 2020-11-11 07:56 | HMH.EDBACK ---
ED Disposition Clinical Impression: Acute delirium, Lumbar radiculopathy Disposition: Home, Self-Care Condition on Discharge: Good Instructions: DI for Low Back Pain Additional Instructions: see pcp and dr judd for follow up Referrals: Shivam Pimentel [Primary Care Provider] - - Critical Care Critical Care Time: No Attestation: On 11/11/20, the high probability of a clinically significant, sudden or life threatening deterioration of the following system(s) required my full and direct attention, intervention and personal management. The time I documented below is in addition to time spent performing reported procedures but includes the following listed in this critical care notation. Medical Decision Making - Medical Records Medical records reviewed: Yes: I reviewed the patient's medical records. - Roldan Inquiry Pt receiving controlled substance: No Vital Signs: 11/11/20 04:04 11/11/20 07:04 11/11/20 07:10 Temperature 98.2 F Temperature Source Oral Pulse Rate 108 H 107 H Pulse Rate [Right] 132 H Respiratory Rate 18 18 16 Blood Pressure 102/63 L 102/63 L Blood Pressure [Right Arm] 171/99 H Blood Pressure Mean [Right Arm] 123 Blood Pressure Source [Right Arm] Automatic Cuff Blood Pressure Position Sitting Blood Pressure Position [Right Arm] Supine 02 Sat by Pulse Oximetry 96 95 95 Oxygen Delivery Method Room Air Room Air Room Air 11/11/20 11:28 Temperature Temperature Source Pulse Rate 69 Pulse Rate [Right] Respiratory Rate 16 Blood Pressure 140/80 Blood Pressure [Right Arm] Blood Pressure Mean [Right Arm] Blood Pressure Source [Right Arm] Blood Pressure Position Sitting Blood Pressure Position [Right Arm] 02 Sat by Pulse Oximetry 95 Oxygen Delivery Method Room Air - Lab Data Lab results reviewed: Yes: I reviewed the patient's lab results. Lab Results 11/11/20 04:10: Urine Color Yellow, Urine Appearance Clear, Urine pH 6.5, Ur Specific Homer 1.025, Urine Protein Negative, Urine Glucose (UA) Negative, Urine Ketones Trace, Urine Blood Negative, Urine Nitrate Negative, Urine Bilirubin Negative, Urine Urobilinogen 0.2, Ur Leukocyte Esterase Negative, Urine RBC None, Urine WBC Occasional, Ur Squamous Epith Cells 3-5, Urine Bacteria None 11/11/20 04:10: Urine HCG, Qual Negative 11/11/20 04:10: Urine Opiates Screen Positive H, Urine Methadone Screen Negative, Ur Barbituates Screen Negative, Ur Phencyclidine Scrn Negative, Ur Amphetamines Screen Negative, U Benzodiazepines Scrn Negative, Urine Cocaine Screen Negative, U Marijuana (THC) Screen Negative 11/11/20 04:23: WBC 13.3 H, RBC 4.45, Hgb 13.1, Hct 39.5, MCV 88.9, MCH 29.4, MCHC 33.0, RDW 13.5, Plt Count 315, MPV 7.6, Neut % (Auto) 72.0, Lymph % (Auto) 19.5, Travis % (Auto) 4.3, Eos % (Auto) 3.4, Baso % (Auto) 0.7, Neut # (Auto) 9.6 H, Lymph # (Auto) 2.6, Travis # (Auto) 0.6, Eos # (Auto) 0.5 H, Baso # (Auto) 0.1, ESR 13 11/11/20 04:23: Sodium 139, Potassium 3.5, Chloride 106, Carbon Dioxide 19 L, Anion Gap 17.5 H, BUN 7, Creatinine 0.60, Estimated Creat Clear 103, Estimated GFR 107, Est GFR ( Amer) 129, Glucose 196 H, Calcium 9.1, Total Bilirubin 1.5 H, AST 39 H, ALT 48, Alkaline Phosphatase 57, C-Reactive Protein 6.1 H, Total Protein 7.5, Albumin 4.7, Globulin 2.8, Albumin/Globulin Ratio 1.7, Procalcitonin 0.055 Result diagrams: 11/11/20 04:23 11/11/20 04:23 - Radiology Data #1 Image(s): L-Spine Image Reviewed: Yes I have reviewed radiologist's interpretation Preliminary Findings: No Fracture Seen - Reevaluation(s) Time: 13:11 Reevaluation #1: ox3 and ambulatory with stable vs Medical Decision Narrative: altered mental status uncertain etiology and at baseline Back Pain HPI - General Chief Complaint: Back Pain/Injury Stated Complaint: AO 10/27 fall, back pain Time Seen by Provider: 11/11/20 04:30 Mode of Arrival: Ambulatory Source of Information: Patient, Spouse, Medical Record Limitations: No
[2020-11-11 08:03] LABS: Appearance,Urine CLEAR (Clear); Bilirubin,Urine Negative (Negative); Blood, Urine Negative (Negative); Color,Urine YELLOW (Yellow); Glucose,Urine (UA) Negative (Negative); Ketones,Urine TRACE (Negative); Leukocyte Esterase,Urine Negative (Negative); Nitrate,Urine Negative (Negative); PH,Urine 6.5 (5.0-8.5); Protein,Urine Negative (Negative); Specific Gravity, Urine 1.025 (1.005-1.030); Urobilinogen,Urine 0.2 EU/dl (0.2)
[2020-11-11 08:06] LABS: Urine Pregnancy, HCG Qual. Negative (Negative)
--- NOTE | 2020-11-11 08:08 | PC.NURSE ---
Dr. Robles at speaking with pt and pt .
[2020-11-11 08:09] LABS: WBC,Urine Occasional #/hpf (0-3)
[2020-11-11 08:13] LABS: Erythrocyte Sedimentation Rate 13 mm/hr (0-20); Hematocrit 39.5 % (37.0-47.0); Hemoglobin 13.1 g/dL (12.2-16.2); Mean Corpuscular Hemoglobin 29.4 pg (27.0-31.2); Mean Corpuscular Volume 88.9 fl (81-99); Mean Platelet Volume 7.6 fl (7.4-10.4); Platelet Count 315 K/mm3 (142-424); Red Blood Count 4.45 M/mm3 (4.20-5.40); Red Cell Distribution Width 13.5 % (11.5-17.5); White Blood Count 13.3 K/mm3 (4.8-10.8)
[2020-11-11 08:14] LABS: Basophils # 0.1 K/mm3 (0-0.2); Basophils % 0.7 % (0.1-2.0); Eosinophils # 0.5 K/mm3 (0.0-0.4); Eosinophils % 3.4 % (0.1-12.0); Lymphocytes # 2.6 K/mm3 (0.7-4.5); Lymphocytes % 19.5 % (10-50); Monocytes # 0.6 K/mm3 (0.1-1.0); Monocytes % 4.3 % (1.7-9.3); Neutrophils # 9.6 K/mm3 (1.8-7.8)
--- NOTE | 2020-11-11 08:14 | PC.NURSE ---
Dr. Romo office notified r/t pt has pain pump, stated they will be coming to assess pt.
--- NOTE | 2020-11-11 08:25 | PC.NURSE ---
pain management staff at [facility]
--- NOTE | 2020-11-11 09:30 | PC.NURSE ---
pt sleeping, at bedside vs deferred
--- NOTE | 2020-11-11 10:25 | PC.NURSE ---
pt sleeping, at bedside
[2020-11-11 11:28] VITALS: BP 140/80; PULSE 69; RESP 16; O2SAT 95
--- NOTE | 2020-11-11 12:35 | PC.NURSE ---
pt up walking to bathroom with steady gait. pt alert and oriented clear speech
[2020-11-11 13:45] VITALS: BP 140/82; PULSE 68; RESP 18; TEMP 36.9; O2SAT 99
== END 2020-11-11 13:48 | disposition home or self-care (01) ==
PROVIDERS: Emergency Provider Emergency Medicine; PCP Pediatrics
DX: M54.16 Radiculopathy, lumbar region (principal); R41.0 Disorientation, unspecified; E11.9 Type 2 diabetes mellitus without complications; I10 Essential (primary) hypertension; Z88.1 Allergy status to other antibiotic agents; Z79.899 Other long term (current) drug therapy
CPT/HCPCS: 72110; 80053; 80305; 81001; 81025; 84145; 85025; 85651; 86140; 99281; 99282

== ENCOUNTER 2021-02-01 13:56 | Day surgery (SDC) | payer BC, SELFPAY ==
[2021-02-01 14:26] VITALS: BP 151/87; PULSE 83; RESP 18; TEMP 36.4; O2SAT 97; BMI 35.7
[2021-02-01 14:35] VITALS: BP 131/83; PULSE 81; RESP 18; O2SAT 97
[2021-02-01 14:37] VITALS: BP 140/94; PULSE 81; O2SAT 98
--- NOTE | 2021-02-01 14:42 | P.PCN_ITS ---
- Procedure Date: 02/01/21 Time: 14:42 Anesthesiologist:: Shannon Figueroa APRN Complications:: None Pre-procedure Diagnosis:: Degenerative disc disease lumbar spine with lumbar radiculopathy symptoms Post-procedure Diagnosis:: Same Indications for Procedure:: Patient is a pleasant 50-year-old white female who presents today for intrathecal pain pump refill and reprogram. She has been treated for degenerative disc disease lumbar spine with lumbar radiculopathy symptoms. Patient rates her pain a 5 out of 10 and would like a small increase. She is planning to travel to [place] in February for [employer] festival. She is currently on morphine at 0.45 mg/day and denies any side effects. We will increase her today to see if she gets relief. Roldan and drug screen are appropriate. Roldan #[id number]. Morphine equivalent is 0. Physical exam General: Alert and oriented x3, no acute distress, pleasant and cooperative, [on room air] Lungs: Respirations even and unlabored, symmetrical chest expansion Eyes: PERRL Musculoskeletal: Flexion and extension of lumbar [spine] somewhat guarded secondary to pain, strength in upper and lower extremities [5/5], [antalgic gait noted] Neurological: Speech clear, [obstetrics gyn physician equal], no gross sensory deficit Procedure Details:: Informed consent was obtained and the risk and benefits of the procedure were explained to the patient. The patient was taken to the procedure room where noninvasive monitoring was placed including noninvasive blood pressure cuff and pulse oximeter. Patient's pump was interrogated. The area over the pump was cleansed with chlorhexidine as a cleansing solution. In sterile fashion the pump was accessed with a 22-gauge needle. Approximately 9.5 mls of the pump solution was removed and discarded appropriately. The pump was then refilled with 20 mL's of morphine milligrams per male. The needle was withdrawn and a bandage was placed over the puncture site. The infusion rate was reprogrammed at increased to morphine at 0.55 mg/day. The patient tolerated well with no complication. Plan and Disposition:: Patient has been instructed to contact the clinic with any concerns before the next appointment. Dr. Romo has reviewed this note and agrees with this plan of care. This note was dictated using voice recognition software and make contain errors or omissions.
[2021-02-01 14:47] VITALS: BP 120/78; PULSE 70; RESP 20; O2SAT 95
== END 2021-02-01 14:48 | disposition home or self-care (01) ==
LOC: SC.PAINP 13:57
PROVIDERS: PCP Pediatrics; Visit Provider Clinical Nurse Specialist Family Health
DX: M51.16 Intervertebral disc disorders with radiculopathy, lumbar region (principal); Z45.1 Encounter for adjustment and management of infusion pump
CPT/HCPCS: 62370

== ENCOUNTER → 2021-03-02 10:02 | Outpatient (POV) | payer BC, SELFPAY ==
[2021-03-02 10:21] VITALS: BP 125/85; PULSE 88; RESP 18; O2SAT 99; BMI 30.9
--- NOTE | 2021-03-02 10:35 | HMH.PAINSOAP ---
[facility] Pain Management SOAP Note Subjective:: Patient is a 50-year-old white female who presents today for left hip pain. The patient says she is having pain to her left hip which is worse at bedtime when lying on her left side. She has to reposition often to get relief. She does say standing in 1 position for prolonged period worsens her pain as well. She is tender to palpation to the area. She says that she has undergone left hip injections in the past which gave her greater than 5 months of relief at about 80%. Today, the patient rates her pain a 6 out of 10. She does have an intrathecal pain pump to manage her low back pain. She was increased at her last visit and says this is done well for her low back pain at this time. Review of Systems General: No recent weight changes, no fever, no sleep disturbances Respiratory: No cough, no shortness of air, no recurring pulmonary infections Cardiovascular/peripheral vascular: No chest pain, no palpitations, no edema, no shortness of breath Gastrointestinal: No new onset incontinence, normal bowel movements reported Genitourinary: No new onset incontinence Musculoskeletal: Left hip pain worse with lying on left side and with prolonged standing in 1 position Psychiatric: [Normal mood/affect] Neurological: [Denies weakness in extremities], [denies balance issues] Objective:: Physical exam General: Alert and oriented x3, no acute distress, pleasant and cooperative Lungs: Respirations even and unlabored, symmetrical chest expansion Eyes: PERRL Musculoskeletal: Flexion/extension/palpation of left hip somewhat guarded secondary to pain, [antalgic gait noted] Neurological: Speech clear, no gross sensory deficit Assessment:: , Left hip pain Left trochanteric bursitis Plan:: Left trochanteric bursitis/left hip pain?patient presents today for worsening left hip pain. We will schedule the patient for a left trochanteric bursa injection. She has had this injection in the past and has gotten significant relief tween 80 to 90% for greater than 5 minutes. She is tender to palpation to her left hip today. We will also order the patient compounding cream to apply topically to the area to see if this relieves her pain in between injections. Possible side effects of corticosteroids have been discussed with the patient. Risks and benefits of the procedure have been explained to the patient. Patient would like to proceed with the procedure. Patient has been instructed to contact the clinic with any concerns before the next appointment. Dr. Romo has reviewed this note and agrees with this plan of care. This note was dictated using voice recognition software and make contain errors or omissions. [facility] History I have reviewed the patient's past medical history: Yes Medical History: Reports:: Diabetes Mellitus Type 2, Hypertension Denies:: Cancer, Diabetes Mellitus Type 1, Internal Pacemaker, MRSA, Seizures *Have you ever received a pneumonia vaccine?: No *Have you received a flu vaccine this season?: No Other Medical History: Reports: Sinus Problems. Denies: Blood Transfusion Reaction Other Surgeries: Yes: Bariatric Surgery, , Tubal Ligation, Other (toe sx). No: Pacemaker Amputation: No Fractures: No - *Social History Smoking Status: Never smoker Alcohol Intake: never Alcohol Intake Frequency:: holidays/special occasions only Substance Use Type: other *Occupational Status:: employed Housing: house Household Members: spouse *Travel in the last 8 weeks: None Family Hx:: Cancer, Diabetes, Hyperlipidemia
== END ==
PROVIDERS: Visit Provider Clinical Nurse Specialist Family Health
DX: M70.62 Trochanteric bursitis, left hip (principal)
CPT/HCPCS: 99212; G0463

== ENCOUNTER 2021-03-05 14:23 | Day surgery (SDC) | payer BC, SELFPAY ==
[2021-03-05 15:13] VITALS: BP 145/98; PULSE 88; RESP 18; TEMP 36.9; O2SAT 97; BMI 35.7
--- NOTE | 2021-03-05 15:50 | P.PCN_ITS ---
- Procedure Date: 03/05/21 Time: 15:50 Anesthesiologist:: Foster Romo MD Complications:: None Pre-procedure Diagnosis:: Trochanteric bursitis bilateral Post-procedure Diagnosis:: Same Indications for Procedure:: Patient is a pleasant 50-year-old white female who we are treating for bilateral trochanteric bursitis. She is tender over both trochanteric bursa's. We will do bilateral trochanteric bursa injections today. Procedure Details:: Bilateral trochanteric bursa injection Informed consent was obtained and the risk and benefits of the procedure was ex plained to the patient. The patient was taken to the procedure room and placed prone on the procedure table. Both hips were prepped using ChloraPrep. The skin and subcutaneous tissues were anesthetized using lidocaine. A 22-gauge spinal needle was inserted and advanced into the greater trochanter on the left side. Needle placement was confirmed with dye. We then injected 5 mL bupivacaine 0.25% Depo-Medrol 40 mg into the left trochanteric bursa. The same was done for the right side. A 22-gauge spinal needle was inserted and advanced into the greater trochanter on the right side. Needle placement was confirmed with dye. We then injected 5 mL bupivacaine 0.25% Depo-Medrol 40 mg into the right trochanteric bursa. Patient tolerated the procedure well with no complications. Plan and Disposition:: We will follow-up with her in 2 weeks. Will reevaluate her symptoms at that time.
[2021-03-05 16:00] VITALS: BP 171/99; PULSE 91; RESP 20; O2SAT 98
[2021-03-05 16:01] VITALS: BP 170/100; PULSE 79; RESP 20; O2SAT 96
[2021-03-05 16:09] VITALS: BP 158/93; PULSE 87; RESP 18; TEMP 36.9; O2SAT 96
== END 2021-03-05 16:10 | disposition home or self-care (01) ==
LOC: SC.PAINP 14:24
PROVIDERS: PCP Pediatrics; Visit Provider Anesthesiology
DX: M70.61 Trochanteric bursitis, right hip (principal); M70.62 Trochanteric bursitis, left hip; I10 Essential (primary) hypertension; K21.9 Gastro-esophageal reflux disease without esophagitis; F41.9 Anxiety disorder, unspecified; F32.9 Major depressive disorder, single episode, unspecified; E11.9 Type 2 diabetes mellitus without complications; Z98.84 Bariatric surgery status; Z88.1 Allergy status to other antibiotic agents; Z79.84 Long term (current) use of oral hypoglycemic drugs; Z79.899 Other long term (current) drug therapy
CPT/HCPCS: 20610; 77002; J1040; Q9966

== ENCOUNTER 2021-06-01 12:29 | Day surgery (SDC) | payer BC, SELFPAY ==
[2021-06-01 12:35] VITALS: BP 140/87; PULSE 68; RESP 20; TEMP 36.7; O2SAT 95; BMI 34.6
--- NOTE | 2021-06-01 12:43 | P.PCN_ITS ---
- Procedure Date: 06/01/21 Time: 12:43 Anesthesiologist:: Shannon Figueroa APRN Complications:: None Pre-procedure Diagnosis:: Degenerative disc disease lumbar spine with lumbar radiculopathy symptoms Post-procedure Diagnosis:: Same Indications for Procedure:: Patient is a 50-year-old white female who presents today for intrathecal pain pump refill and reprogram. She is doing very well with her intrathecal therapy and does not need any changes at this time. She does rate her pain a 3 out of 10. The medication is managing her pain well without any issues. Patient's Roldan and drug screen are appropriate today. Physical exam General: Alert and oriented x3, no acute distress, pleasant and cooperative Lungs: Respirations even and unlabored, symmetrical chest expansion Eyes: PERRL Musculoskeletal: Flexion and extension of lumbar [spine] somewhat guarded secondary to pain, [antalgic gait noted] Neurological: Speech clear, no gross sensory deficit Procedure Details:: Informed consent was obtained and the risk and benefits of the procedure were explained to the patient. The patient was taken to the procedure room where noninvasive monitoring was placed including noninvasive blood pressure cuff and pulse oximeter. Patient's pump was interrogated. The area over the pump was cleansed with chlorhexidine as a cleansing solution. In sterile fashion the pump was accessed with a 22-gauge needle. Approximately 5 mls of the pump solution was removed and discarded appropriately. The pump was then refilled with 20 mL's of morphine 5 mg/mL. The needle was withdrawn and a bandage was placed over the puncture site. The infusion rate was reprogrammed at morphine at 0.55 mg/day the patient tolerated well with no complication. Plan and Disposition:: We will see the patient back in the clinic at the next intrathecal refill. Patient has been instructed to contact the clinic with any concerns before the n ext appointment. Dr. Romo has reviewed this note and agrees with this plan of care. This note was dictated using voice recognition software and make contain errors or omissions. ORT is minimal risk. Patient has signed and completed a pain management agreement/contract today.
[2021-06-01 12:45] VITALS: BP 132/83; PULSE 88; PULSE 89; RESP 20; O2SAT 100
[2021-06-01 14:50] LABS: Amphetamine/Metha Screen,Urine Negative ng/ml (<1000); Benzodiazepines Screen,Urine Negative ng/ml (<200)
[2021-06-01 14:51] LABS: Barbiturates Screen,Urine Negative ng/ml (<200)
[2021-06-01 14:52] LABS: Cannabinoid Screen,Urine Positive ng/ml (<50); Cocaine Screen,Urine Negative ng/ml (<300)
[2021-06-01 14:53] LABS: Methadone Screen,Urine Negative ng/ml (<300); Opiate Screen,Urine Positive ng/ml (<300)
[2021-06-01 14:54] LABS: Phencyclidine Screen,Urine Negative ng/ml (<25)
[2021-06-15 19:08] LABS: Codeine Negative (Cutoff=100); Hydrocodone Negative (Cutoff=100); Hydromorphone Negative (Cutoff=100); Morphine Positive (.); Opiates Positive (.)
== END 2021-06-01 12:52 | disposition home or self-care (01) ==
LOC: SC.PAINP 12:30
PROVIDERS: PCP Pediatrics; Visit Provider Clinical Nurse Specialist Family Health
DX: M51.16 Intervertebral disc disorders with radiculopathy, lumbar region (principal); Z45.1 Encounter for adjustment and management of infusion pump; E11.9 Type 2 diabetes mellitus without complications; I10 Essential (primary) hypertension; Z79.891 Long term (current) use of opiate analgesic
CPT/HCPCS: 62370; 80305; 80361; 80365; G0480

== ENCOUNTER → 2022-02-28 10:24 | Outpatient (POV) | payer SELFPAY ==
[2022-02-28 10:44] VITALS: BP 139/82; PULSE 88; RESP 18; TEMP 37; O2SAT 96; BMI 36.6
--- NOTE | 2022-02-28 10:48 | EXP.PAIN.SOA ---
[facility] Pain Management SOAP Note Subjective:: Patient is a pleasant 51-year-old female who presents today for follow-up. We are currently treating the patient for degenerative disc disease of lumbar spine with lumbar radiculopathy symptoms, bilateral greater trochanteric bursitis. Today the patient rates her pain a 9 out of 10. She states the pain is all in her bilateral hips and describes it as a sharp, achy pain that is worse at night. Patient does use Tylenol and Motrin daily to help with her pain as well as the compounding cream provides significant improvement of her symptoms. She is currently managed with an intrathecal pump of morphine 5 mg/mL with a daily dose of 0.6 mg/day. Patient denies any side effects from these medications. She states these medications do adequately manage her pain. Patient denies any new trauma or injury. She denies any change in location or type of pain that she experiences. Patient has had injections in the past that provided significant improvement of her symptoms. Her last injections at bilateral hips provided close to a year of relief. Her Roldan is [id number]. It is been reviewed and appropriate. Review of Systems: General: No recent weight changes, no fever, no sleep disturbances Respiratory: No cough, no shortness of air, no recurring pulmonary infections Cardiovascular/peripheral vascular: No chest pain, no palpitations, no edema, no shortness of breath Gastrointestinal: No new onset incontinence, normal bowel movements reported Genitourinary: No new onset incontinence Musculoskeletal: Bilateral hip pain Psychiatric: [Normal mood/affect] Neurological: [Denies weakness in extremities], [denies balance issues] Objective:: Physical Exam: General: Alert and oriented x3, no acute distress, pleasant and cooperative Lungs: Respirations even and unlabored, symmetrical chest expansion Eyes: PERRL Musculoskeletal: Flexion and extension of lumbar [spine] somewhat guarded secondary to pain, [antalgic gait noted] Neurological: Speech clear, no gross sensory deficit Assessment:: Degenerative disc disease of lumbar spine with lumbar radiculopathy symptoms, bilateral greater trochanteric bursitis Plan:: Patient is experiencing significant pain in her bilateral hips during today's visit. Patient did have limited range of motion of her lumbar spine at today's visit. I have discussed with the patient regarding having repeat bilateral bursa injections. Risk and benefits were discussed with the patient. She would like to proceed forward with these injections. Patient does not need any pump adjustments at today's visit. We will schedule the patient for bilateral greater trochanteric bursa injections at today's visit Patient has been instructed to contact the clinic with any concerns before the next appointment. Dr. Romo has reviewed this note and agrees with this plan of care. This note was dictated using voice recognition software and make contain errors or omissions. -- It Is medically necessary for this patient to continue to have their intrathecal pump refilled at regular intervals. This patient had an intrathecal pain pump implanted after meeting criteria of chronic intractable pain for greater than 3 months and failing conservative treatments. Patient has committed and been compliant to the treatment plan and all planned follow up care. Since implantation of the intrathecal pain pump, the patient has had decreased pain and been more functional. Oral medications have been reduced including intake of oral opioids. Patient continues to do well with intrathecal therapy with decrease in pain symptoms and increase in functional status. Stopping intrathecal medications can lead to life threatening withdrawal, seizures, cardiac arrest, severe pain, and possible . Pumps that are not refilled at regular intervals can be damages and cause and need for replacement. We continually titrate dose and concentration to optimize pain relief a
== END ==
PROVIDERS: PCP Pediatrics; Visit Provider Nurse Practitioner Family
DX: M51.16 Intervertebral disc disorders with radiculopathy, lumbar region (principal); M70.61 Trochanteric bursitis, right hip; M70.62 Trochanteric bursitis, left hip; Z79.899 Other long term (current) drug therapy
CPT/HCPCS: 99212; G0463

== ENCOUNTER 2024-06-21 10:07 | Outpatient (POV) | payer BC, SELFPAY ==
--- NOTE | 2024-06-21 10:16 | EXP.PAIN.SOA ---
[facility] Disclaimer: The information contained in this section may have been updated after the patient was seen, as this information can be updated by other users. Social History Smoking Status: Never smoker second hand exposure: No alcohol intake: never substance use type: other current occupational status: employed Travel in the last 8 weeks: None household members: spouse housing: house current occupation: [employer] current occupational exposures/hazards: No caffeine: Yes Have you lived/traveled outside [place] in past 30 days?: No Contact w/someone who lives/traveled outside [place] past 30 days?: No Exposure to someone with infectious disease in past 14 days?: No Do you have a fever (greater than 100.4 F or 38 C)?: No Have you tested positive for COVID-19: No Exposed to someone with COVID-19 in past 14 days?: No Do you have a sore throat?: No Do you have a cough?: No Do you have any weakness?: No Do you have any diarrhea?: No Are you experiencing any unusual bleeding?: No Do you have any muscle aches/pain?: No Do you have any abdominal pain?: No Are you experiencing loss of taste or smell?: No PM Subjective & Objective Subjective Subjective:: Patient is a pleasant 53-year-old female who presents today for intrathecal pump issues. Today she rates her pain a 8 out of 10. She denies any new trauma or injury. Patient has not been able to get to our office because of insurance issues. She does state that she has officially diagnosed resolved and is wanting to get her pump refilled. Patient was previously managed with morphine 5 mg/mL with a daily dose of 0.6 mg/day. Patient states she has not had any pump medication for some time. She does state that when she did had this going it was very beneficial and she would like to get it started as soon as possible. Her Roldan has been reviewed and is appropriate. Review of Systems: General: No recent weight changes, no fever, no sleep disturbances Respiratory: No cough, no shortness of air, no recurring pulmonary infections Cardiovascular/peripheral vascular: No chest pain, no palpitations, no edema, no shortness of breath Gastrointestinal: No new onset incontinence, normal bowel movements reported Genitourinary: No new onset incontinence Musculoskeletal: Low back pain, leg Psychiatric: [Normal mood/affect] Neurological: [Denies weakness in extremities], [denies balance issues] Pain at rest (0-10 scale): 8 Objective Objective:: Physical Exam: General: Alert and oriented x3, no acute distress, pleasant and cooperative Lungs: Respirations even and unlabored, symmetrical chest expansion Eyes: PERRL Musculoskeletal: Flexion and extension of lumbar [spine] somewhat guarded secondary to pain, [antalgic gait noted] Neurological: Speech clear, no gross sensory deficit Has patient had previous pain injection?: No Conservative treatment options previously tried: Home exercise plan Length of treatment: Longer than 12 weeks Meds Home Medications and Allergies Home Medications ?Medication ?Instructions ?Recorded ?Confirmed ?Type amlodipine 10 mg tablet (Norvasc) 10 mg PO DAILY Hypertension 10/27/17 06/21/24 History buspirone 5 mg tablet 10 mg PO TID Depression 10/27/17 06/21/24 History propranolol 20 mg tablet 20 mg PO BID Hypertension 10/27/17 06/21/24 History quetiapine 50 mg tablet (Seroquel) 50 mg PO PM SLEEP 10/27/17 06/21/24 History ropinirole 1 mg tablet 1 mg PO PM RLS 10/27/17 06/21/24 History celecoxib 200 mg capsule 200 mg PO BID BACK PAIN 10/28/19 06/21/24 History morphine 5 mg/mL injection solution 0.55 mg IT CONT Pain 04/23/20 06/21/24 History metformin 500 mg tablet,extended 500 mg PO DAILY Diabetes 10/26/20 06/21/24 History release 24 hr New Prescriptions to Start Prescriptions: Allergies Allergy/AdvReac Type Severity Reaction Status Date / Time ciprofloxacin (CIPROFLOXACIN) Allergy Unknown Unknown Verified 06/21/24 10:34 allergy reaction Tetracyclines (TETRACYCLINES) Allergy Unknown Unknown Verified 06/21/24 10:34 allergy reaction Assessment and Plan *Assessment and plan (1) Lumbar radiculopathy: Status: Acute Category: Medical Code(s): M54.16 - Radiculopathy, lumbar region Plan I did discuss with the patient that her pump does seem to be still functioning as it was read today without any complications and has still been sending alerts that it is low reservoir. Due to the fact that she has had this medication empty for a significant period of time she was counseled that we will start her back on a starting dose of 1 mg/mL of morphine with 0.1 mg/day. Patient acknowledges understanding and agrees with plan of care. We will get this medication ordered and tentatively give her a 1 week follow-up for intrathecal refill and reprogram. Patient agrees with this plan of care. Patient has been instructed to contact the clinic with any concerns before the next appointment. Dr. Romo has reviewed this note and agrees with this plan of care. This note was dictated using voice recognition software and make contain errors or omissions. -- It Is medically necessary for this patient to continue to have their intrathecal pump refilled at regular intervals. This patient had an intrathecal pain pump implanted after meeting criteria of chronic intractable pain for greater than 3 months and failing conservative treatments. Patient has committed and been compliant to the treatment plan and all planned follow up care. Since implantation of the intrathecal pain pump, the patient has had decreased pain and been more functional. Oral medications have been reduced including intake of oral opioids. Patient continues to do well with intrathecal therapy with decrease in pain symptoms and increase in functional status. Stopping intrathecal medications can lead to life threatening withdrawal, seizures, cardiac arrest, severe pain, and possible . Pumps that are not refilled at regular intervals can be damages and cause and need for replacement. We continually titrate dose and concentration to optimize pain relief and function. We are limited in concentration for certain drugs to safely deliver medications through the pump and stay within the recommendations from the Polyanalges[employer] Consensus Committee Guidelines. Depending on dose and concentration these pumps may need to be refilled sooner than 3 months as we titrate. A UDS is needed to verify patient's compliance with our office pain contract. This is ordered based off specific treatments related to chronic pain with the potential to abuse certain medications.
[2024-06-21 10:33] VITALS: BP 143/97; PULSE 82; RESP 16; TEMP 36.2; O2SAT 99; BMI 34.7
== END 2024-06-21 23:59 | disposition home or self-care (01) ==
LOC: SC.PAIN 10:10
PROVIDERS: PCP Pediatrics; Visit Provider Nurse Practitioner Family
DX: M54.16 Radiculopathy, lumbar region (principal)
CPT/HCPCS: 99212; G0463

== ENCOUNTER 2024-07-05 08:20 | Day surgery (SDC) | payer BC, SELFPAY ==
[2024-07-05 08:40] VITALS: BP 118/69; PULSE 78; RESP 16; TEMP 36.8; O2SAT 98; BMI 34.7
--- NOTE | 2024-07-05 08:42 | EXP.PAIN.PRO ---
Procedure Date: 07/05/24 Time: 08:48 Anesthesiologist:: Carla Reis APRN Complications:: None Pre-procedure Diagnosis:: Degenerative disc disease of lumbar spine with lumbar radiculopathy symptoms Post-procedure Diagnosis:: Same Indications for Procedure:: Patient is a pleasant 53-year-old female who presents today for intrathecal refill and reprogram. Patient rates her pain today as 7 out of 10. She denies any new trauma or injury. Patient is currently managed with morphine 5 mg/mL with a daily dose of 0.6 mg/day however this pump has been empty for significant period of time. Patient is being refilled with a starting dose of morphine 1 mg/mL with a daily dose of 0.1 mg/day. Patient denies any side effects from the morphine in the past. She is prescribed compounded cream from our office. Her Roldan has been reviewed and is appropriate. Physical Exam: General: Alert and oriented x3, no acute distress, pleasant and cooperative Lungs: Respirations even and unlabored, symmetrical chest expansion Eyes: PERRL Musculoskeletal: Flexion and extension of lumbar [spine] somewhat guarded secondary to pain, [antalgic gait noted] Neurological: Speech clear, no gross sensory deficit Procedure Details:: Informed consent was obtained and the risk and benefits of the procedure were explained to the patient. The patient had noninvasive monitoring placed including noninvasive blood pressure cuff and pulse oximeter. Patient's pump was interrogated. The area over the pump was cleansed with chlorhexidine as a cleansing solution. In sterile fashion the pump was accessed with a 22-gauge needle. Approximately 0 mls of the pump solution was removed and discarded appropriately. The pump was then refilled with 20 mL's of morphine 1 mg/mL. The needle was withdrawn and a bandage was placed over the puncture site. The infusion rate was reprogrammed and started at 0.1 mg/day. The patient tolerated well with no complication. Plan and Disposition:: Patient tolerated the procedure well with no complications and was discharged neurologically intact. Due to the fact that the patient has not had active medication and her pain for at least 6 months we did keep her for about 30 minutes and are recovery area to make sure she did tolerate the medication. Patient was given a 1 month follow-up for possible pump adjustment as well as her next intrathecal refill date. We will see the patient back in the clinic at the next intrathecal refill. Patient has been instructed to contact the clinic with any concerns before the next appointment. Dr. Romo has reviewed this note and agrees with this plan of care. This note was dictated using voice recognition software and make contain errors or omissions. -- It Is medically necessary for this patient to continue to have their intrathecal pump refilled at regular intervals. This patient had an intrathecal pain pump implanted after meeting criteria of chronic intractable pain for greater than 3 months and failing conservative treatments. Patient has committed and been compliant to the treatment plan and all planned follow up care. Since implantation of the intrathecal pain pump, the patient has had decreased pain and been more functional. Oral medications have been reduced including intake of oral opioids. Patient continues to do well with intrathecal therapy with decrease in pain symptoms and increase in functional status. Stopping intrathecal medications can lead to life threatening withdrawal, seizures, cardiac arrest, severe pain, and possible . Pumps that are not refilled at regular intervals can be damages and cause and need for replacement. We continually titrate dose and concentration to optimize pain relief and function. We are limited in concentration for certain drugs to safely deliver medications through the pump and stay within the recommendations from the Polyanalgesic Consensus Committee Guidelines. Depending on dose and concentration these pumps may need to be refilled sooner than 3 months as we titrate. A UDS is needed to verify patient's compliance with our office pain contract. This is ordered based off specific treatments related to chronic pain with the potential to abuse certain medications.
[2024-07-05 08:45] VITALS: BP 125/54; PULSE 80; RESP 18; O2SAT 98
[2024-07-05 08:47] VITALS: BP 125/54; PULSE 80; RESP 18; O2SAT 98
[2024-07-05 09:10] VITALS: BP 101/70; PULSE 69; RESP 16; O2SAT 97
== END 2024-07-05 09:10 | disposition home or self-care (01) ==
PROVIDERS: PCP Pediatrics; Visit Provider Nurse Practitioner Family
DX: M51.16 Intervertebral disc disorders with radiculopathy, lumbar region (principal)
CPT/HCPCS: 62370

== ENCOUNTER 2024-07-12 15:07 | Outpatient (POV) | payer BC, SELFPAY ==
[2024-07-12 15:15] VITALS: BP 162/77; PULSE 75; RESP 14; O2SAT 100; BMI 35.4
--- NOTE | 2024-07-12 15:41 | EXP.PAIN.PRO ---
Procedure Date: 07/12/24 Time: 15:41 Anesthesiologist:: Carla Reis APRN Complications:: None Pre-procedure Diagnosis:: Degenerative disc disease of lumbar spine with lumbar radiculopathy symptoms Post-procedure Diagnosis:: Same Indications for Procedure:: Patient is a pleasant 53-year-old female who presents today for intrathecal adjustment and reprogram. Today she rates her pain a 6 out of 10. Patient does state that she has noticed improvement following getting her pump filled back up after it has been dry for some time. Patient is currently managed with morphine 1 mg/mL with a daily dose of 0.1 mg/day. She denies any side effects from this medication however is asking for an adjustment. Patient is managed with compounded cream from our office. Her Roldan has been reviewed and is appropriate. Physical Exam: General: Alert and oriented x3, no acute distress, pleasant and cooperative Lungs: Respirations even and unlabored, symmetrical chest expansion Eyes: PERRL Musculoskeletal: Flexion and extension of lumbar [spine] somewhat guarded secondary to pain, [antalgic gait noted] Neurological: Speech clear, no gross sensory deficit Procedure Details:: Informed consent was obtained and the risk and benefits of the procedure were explained to the patient. Patient did have noninvasive monitoring was placed including noninvasive blood pressure cuff and pulse oximeter. Patient's pump was interrogated and was reprogrammed to morphine 0.12 mg/day. The patient tolerated the procedure well with no complications. Plan and Disposition:: Patient tolerated the procedure well with no complications and was discharged neurologically intact. Patient will return to clinic on or before their next intrathecal refill date. We will see the patient back in the clinic at the next intrathecal refill. Patient has been instructed to contact the clinic with any concerns before the next appointment. Dr. Romo has reviewed this note and agrees with this plan of care. This note was dictated using voice recognition software and make contain errors or omissions. -- It Is medically necessary for this patient to continue to have their intrathecal pump refilled at regular intervals. This patient had an intrathecal pain pump implanted after meeting criteria of chronic intractable pain for greater than 3 months and failing conservative treatments. Patient has committed and been compliant to the treatment plan and all planned follow up care. Since implantation of the intrathecal pain pump, the patient has had decreased pain and been more functional. Oral medications have been reduced including intake of oral opioids. Patient continues to do well with intrathecal therapy with decrease in pain symptoms and increase in functional status. Stopping intrathecal medications can lead to life threatening withdrawal, seizures, cardiac arrest, severe pain, and possible . Pumps that are not refilled at regular intervals can be damages and cause and need for replacement. We continually titrate dose and concentration to optimize pain relief and function. We are limited in concentration for certain drugs to safely deliver medications through the pump and stay within the recommendations from the Polyanalgesic Consensus Committee Guidelines. Depending on dose and concentration these pumps may need to be refilled sooner than 3 months as we titrate. A UDS is needed to verify patient's compliance with our office pain contract. This is ordered based off specific treatments related to chronic pain with the potential to abuse certain medications.
== END 2024-07-12 23:59 | disposition home or self-care (01) ==
PROVIDERS: PCP Pediatrics; Visit Provider Nurse Practitioner Family
DX: M51.16 Intervertebral disc disorders with radiculopathy, lumbar region (principal)
CPT/HCPCS: 62368; 99212; G0463

== ENCOUNTER 2024-08-07 08:31 | Outpatient (POV) | payer BC, SELFPAY ==
[2024-08-07 08:45] VITALS: BP 135/87; PULSE 85; RESP 14; O2SAT 99; BMI 34.7
--- NOTE | 2024-08-07 08:53 | EXP.PAIN.PRO ---
Procedure Date: 08/07/24 Time: 08:53 Anesthesiologist:: Carla Reis APRN Complications:: None Pre-procedure Diagnosis:: Degenerative disc disease of lumbar spine with lumbar radiculopathy symptoms Post-procedure Diagnosis:: Same Indications for Procedure:: Patient is a pleasant 54-year-old female who presents today for intrathecal adjustment and reprogram. She rates her pain today 5 out of 10. She denies any new trauma or injury. Patient is currently managed with morphine 1 mg/mL with a daily dose of 0.12 mg/day. She denies any side effects. She does state that she was having trouble with her bolus device and did get it finally charged however when she delivers these additional adjustments she does not really notice a big difference and so is unsure if it really is working or not. Her Roldan has been reviewed and is appropriate. Physical Exam: General: Alert and oriented x3, no acute distress, pleasant and cooperative Lungs: Respirations even and unlabored, symmetrical chest expansion Eyes: PERRL Musculoskeletal: Flexion and extension of lumbar [spine] somewhat guarded secondary to pain, [antalgic gait noted] Neurological: Speech clear, no gross sensory deficit Procedure Details:: Informed consent was obtained and the risk and benefits of the procedure were explained to the patient. Patient did have noninvasive monitoring was placed including noninvasive blood pressure cuff and pulse oximeter. Patient's pump was interrogated and was reprogrammed to morphine 0.144 mg/day. The patient tolerated the procedure well with no complications. Plan and Disposition:: Patient tolerated the procedure well with no complications and was discharged neurologically intact. Patient will return to clinic on or before their next intrathecal refill date. We will see the patient back in the clinic at the next intrathecal refill. Patient has been instructed to contact the clinic with any concerns before the next appointment. Dr. Romo has reviewed this note and agrees with this plan of care. This note was dictated using voice recognition software and make contain errors or omissions. -- It Is medically necessary for this patient to continue to have their intrathecal pump refilled at regular intervals. This patient had an intrathecal pain pump implanted after meeting criteria of chronic intractable pain for greater than 3 months and failing conservative treatments. Patient has committed and been compliant to the treatment plan and all planned follow up care. Since implantation of the intrathecal pain pump, the patient has had decreased pain and been more functional. Oral medications have been reduced including intake of oral opioids. Patient continues to do well with intrathecal therapy with decrease in pain symptoms and increase in functional status. Stopping intrathecal medications can lead to life threatening withdrawal, seizures, cardiac arrest, severe pain, and possible . Pumps that are not refilled at regular intervals can be damages and cause and need for replacement. We continually titrate dose and concentration to optimize pain relief and function. We are limited in concentration for certain drugs to safely deliver medications through the pump and stay within the recommendations from the Polyanalgesic Consensus Committee Guidelines. Depending on dose and concentration these pumps may need to be refilled sooner than 3 months as we titrate. A UDS is needed to verify patient's compliance with our office pain contract. This is ordered based off specific treatments related to chronic pain with the potential to abuse certain medications.
== END 2024-08-07 23:59 | disposition home or self-care (01) ==
PROVIDERS: PCP Pediatrics; Visit Provider Nurse Practitioner Family
DX: M51.16 Intervertebral disc disorders with radiculopathy, lumbar region (principal)
CPT/HCPCS: 62368; 99212; G0463

== ENCOUNTER 2024-08-23 08:30 | Day surgery (SDC) | payer BC, SELFPAY ==
--- NOTE | 2024-08-23 08:40 | EXP.PAIN.PRO ---
Procedure Date: 08/23/24 Time: 08:56 Anesthesiologist:: Carla Reis APRN Complications:: None Pre-procedure Diagnosis:: Degenerative disc disease of lumbar spine with lumbar radiculopathy Post-procedure Diagnosis:: Same Indications for Procedure:: Patient is a pleasant 54-year-old female who presents today for intrathecal refill and reprogram. Today she rates her pain a 6 out of 10. She denies any new trauma or injury.Patient does have an intrathecal morphine pump with 1 mg/mL with a daily dose of 0.144 mg/day.She is also prescribed compounded cream. Her Roldan has been reviewed and is appropriate. Physical Exam: General: Alert and oriented x3, no acute distress, pleasant and cooperative Lungs: Respirations even and unlabored, symmetrical chest expansion Eyes: PERRL Musculoskeletal: Flexion and extension of lumbar [spine] somewhat guarded secondary to pain, [antalgic gait noted] Neurological: Speech clear, no gross sensory deficit Procedure Details:: Informed consent was obtained and the risk and benefits of the procedure were explained to the patient. The patient had noninvasive monitoring placed including noninvasive blood pressure cuff and pulse oximeter. Patient's pump was interrogated. The area over the pump was cleansed with chlorhexidine as a cleansing solution. In sterile fashion the pump was accessed with a 22-gauge needle. Approximately 8.5 mls of the pump solution was removed and discarded appropriately. The pump was then refilled with 20 mL's of morphine 1 mg/mL. The needle was withdrawn and a bandage was placed over the puncture site. The infusion rate was reprogrammed and increased 20% to morphine 0.173 mg/day. The patient tolerated well with no complication. Plan and Disposition:: Patient tolerated the procedure well with no complications and was discharged neurologically intact. Patient's pump was expected to have approximately 11.2 mL of solution I will. I did discuss with the patient that we will just monitor at her next refill whether there continues to be some discrepancy. Patient will return to clinic on or before their next intrathecal refill date. We will see the patient back in the clinic at the next intrathecal refill. Patient has been instructed to contact the clinic with any concerns before the next appointment. Dr. Romo has reviewed this note and agrees with this plan of care. This note was dictated using voice recognition software and make contain errors or omissions. -- It Is medically necessary for this patient to continue to have their intrathecal pump refilled at regular intervals. This patient had an intrathecal pain pump implanted after meeting criteria of chronic intractable pain for greater than 3 months and failing conservative treatments. Patient has committed and been compliant to the treatment plan and all planned follow up care. Since implantation of the intrathecal pain pump, the patient has had decreased pain and been more functional. Oral medications have been reduced including intake of oral opioids. Patient continues to do well with intrathecal therapy with decrease in pain symptoms and increase in functional status. Stopping intrathecal medications can lead to life threatening withdrawal, seizures, cardiac arrest, severe pain, and possible . Pumps that are not refilled at regular intervals can be damages and cause and need for replacement. We continually titrate dose and concentration to optimize pain relief and function. We are limited in concentration for certain drugs to safely deliver medications through the pump and stay within the recommendations from the Polyanalgesic Consensus Committee Guidelines. Depending on dose and concentration these pumps may need to be refilled sooner than 3 months as we titrate. A UDS is needed to verify patient's compliance with our office pain contract. This is ordered based off specific treatments related to chronic pain with the potential to abuse certain medications.
[2024-08-23 08:48] VITALS: BP 120/70; PULSE 84; RESP 16; TEMP 37; O2SAT 100; BMI 34.7
[2024-08-23 08:52] VITALS: BP 122/78; PULSE 84; RESP 18; O2SAT 98
[2024-08-23 08:53] VITALS: BP 122/78; PULSE 84; RESP 18; O2SAT 98
[2024-08-23 09:07] VITALS: BP 103/69; PULSE 76; RESP 16; O2SAT 98
== END 2024-08-23 09:07 | disposition home or self-care (01) ==
PROVIDERS: PCP Pediatrics; Visit Provider Nurse Practitioner Family
DX: M51.16 Intervertebral disc disorders with radiculopathy, lumbar region (principal)
CPT/HCPCS: 62370

== ENCOUNTER 2024-10-18 08:33 | Day surgery (SDC) | payer BC, SELFPAY ==
--- NOTE | 2024-10-18 08:40 | EXP.HP ---
History of Present Illness *Admission Date: 10/18/24 *Reason for visit:: Intrathecal refill; DDD *History of present illness: Same [facility] Disclaimer: The information contained in this section may have been updated after the patient was seen, as this information can be updated by other users. Social History Smoking Status: Never smoker second hand exposure: No alcohol intake: never substance use type: other current occupational status: other Travel in the last 8 weeks?: None household members: spouse housing: house current occupation: [employer] current occupational exposures/hazards: No caffeine: Yes Have you lived/traveled outside US in past 30 days?: No Contact w/someone who lives/traveled outside US past 30 days?: No Exposure to someone with infectious disease in past 14 days?: No Do you have a fever (greater than 100.4 F or 38 C)?: No Have you tested positive for COVID-19?: No Exposed to someone with COVID-19 in past 14 days?: No Do you have a sore throat?: No Do you have a cough?: No Do you have any weakness?: No Do you have any diarrhea?: No Are you experiencing any unusual bleeding?: No Do you have any muscle aches/pain?: No Do you have any abdominal pain?: No Are you experiencing loss of taste or smell?: No Other Medical History Have you received the Flu Vaccine for this season: No Have you received the Pneumonia Vaccine: No Review of Systems Review of Systems Review of systems:: pertinent systems reviewed and negative unless documented below Review of systems (narrative): Review of Systems: General: No recent weight changes, no fever, no sleep disturbances Respiratory: No cough, no shortness of air, no recurring pulmonary infections Cardiovascular/peripheral vascular: No chest pain, no palpitations, no edema, no shortness of breath Gastrointestinal: No new onset incontinence, normal bowel movements reported Genitourinary: No new onset incontinence Musculoskeletal: Chronic back pain Psychiatric: [Normal mood/affect] Neurological: [Denies weakness in extremities], [denies balance issues] Meds Home Medications and Allergies Home Medications ?Medication ?Instructions ?Recorded ?Confirmed ?Type amlodipine 10 mg tablet (Norvasc) 10 mg PO DAILY Hypertension 10/27/17 08/23/24 History buspirone 5 mg tablet 10 mg PO TID Depression 10/27/17 08/23/24 History propranolol 20 mg tablet 20 mg PO BID Hypertension 10/27/17 08/23/24 History quetiapine 50 mg tablet (Seroquel) 50 mg PO PM SLEEP 10/27/17 08/23/24 History ropinirole 1 mg tablet 1 mg PO PM RLS 10/27/17 08/23/24 History celecoxib 200 mg capsule 200 mg PO BID BACK PAIN 10/28/19 08/23/24 History morphine 5 mg/mL injection solution 0.55 mg IT CONT Pain 04/23/20 08/23/24 History metformin 500 mg tablet,extended 500 mg PO DAILY Diabetes 10/26/20 08/23/24 History release 24 hr New Prescriptions to Start Prescriptions: Allergies Allergy/AdvReac Type Severity Reaction Status Date / Time ciprofloxacin (CIPROFLOXACIN) Allergy Unknown Unknown Verified 06/21/24 10:34 allergy reaction Tetracyclines (TETRACYCLINES) Allergy Unknown Unknown Verified 06/21/24 10:34 allergy reaction Exam Constitutional Constitutional: no acute distress *Routine HEENT Exam Head: Present normocephalic and atraumatic Eye: Present PERRL ENT: Present mucous membranes moist *Routine Neck Exam Neck: Present supple *Routine Respiratory Exam Respiratory: Present CTA bilaterally *Routine Cardiovascular Exam Cardiovascular: Present RRR *Routine Abdominal Exam Abdominal: Present soft *Routine Rectal Exam Rectal:: deferred *Routine Genitalia Exam Genitalia:: normal female Routine Back/Spine/Pelvis Exam Back/Spine: Present pain with flexion *Routine Skin Exam Skin: Present intact, dry and warm *Routine Neurological Exam Neurological: Present alert and oriented X3 Routine Psychiatric Exam Psychiatric: Present normal affect and normal thought process Assessment and Plan *Assessment and plan (1) Lumbar radiculopathy: Status: Acute Category: Medical Code(s): M54.16 - Radiculopathy, lumbar region Plan Patient has been instructed to contact the clinic with any concerns before the next appointment. Dr. Romo has reviewed this note and agrees with this plan of care. This note was dictated using voice recognition software and make contain errors or omissions. All injections are used with Lidocaine, Bupivacaine and dexamethasone. Occasionally urine drug screen is needed to verify patient's compliance with our office pain contract. This is ordered based off specific treatments related to chronic pain with the potential to abuse certain medications.
--- NOTE | 2024-10-18 08:43 | EXP.PAIN.PRO ---
Procedure Date: 10/18/24 Time: 09:06 Anesthesiologist:: Carla Reis APRN Complications:: None Pre-procedure Diagnosis:: Degenerative disc disease of lumbar spine with lumbar radiculopathy symptoms, chronic pain syndrome Post-procedure Diagnosis:: Same Indications for Procedure:: Patient is a pleasant 54-year-old female who presents today for intrathecal refill and reprogram. She rates her pain today as 7 out of 10. She denies any new falls or injuries. She does state that she has been having a little bit more hip pain. Patient is currently managed with morphine 1 mg/mL with a daily dose of morphine 0.173 mg/day. She denies any side effects from this medication. She has prescribed compounded cream. Her Roldan has been reviewed and is appropriate. Physical Exam: General: Alert and oriented x3, no acute distress, pleasant and cooperative Lungs: Respirations even and unlabored, symmetrical chest expansion Eyes: PERRL Musculoskeletal: Flexion and extension of lumbar [spine] somewhat guarded secondary to pain, [antalgic gait noted] Neurological: Speech clear, no gross sensory deficit Procedure Details:: Informed consent was obtained and the risk and benefits of the procedure were explained to the patient. The patient had noninvasive monitoring placed including noninvasive blood pressure cuff and pulse oximeter. Patient's pump was interrogated. The area over the pump was cleansed with chlorhexidine as a cleansing solution. In sterile fashion the pump was accessed with a 22-gauge needle. Approximately 8 mls of the pump solution was removed and discarded appropriately. The pump was then refilled with 20 mL's of morphine 1 mg/mL. The needle was withdrawn and a bandage was placed over the puncture site. The infusion rate was reprogrammed and increased 10% to morphine 0.1903. The patient tolerated well with no complication. Plan and Disposition:: Patient tolerated the procedure well with no complications and was discharged neurologically intact. Patient will return to clinic on or before their next intrathecal refill date. We will see the patient back in the clinic at the next intrathecal refill. Patient has been instructed to contact the clinic with any concerns before the next appointment. Dr. Romo has reviewed this note and agrees with this plan of care. This note was dictated using voice recognition software and make contain errors or omissions. -- It Is medically necessary for this patient to continue to have their intrathecal pump refilled at regular intervals. This patient had an intrathecal pain pump implanted after meeting criteria of chronic intractable pain for greater than 3 months and failing conservative treatments. Patient has committed and been compliant to the treatment plan and all planned follow up care. Since implantation of the intrathecal pain pump, the patient has had decreased pain and been more functional. Oral medications have been reduced including intake of oral opioids. Patient continues to do well with intrathecal therapy with decrease in pain symptoms and increase in functional status. Stopping intrathecal medications can lead to life threatening withdrawal, seizures, cardiac arrest, severe pain, and possible . Pumps that are not refilled at regular intervals can be damages and cause and need for replacement. We continually titrate dose and concentration to optimize pain relief and function. We are limited in concentration for certain drugs to safely deliver medications through the pump and stay within the recommendations from the [employer] Consensus Committee Guidelines. Depending on dose and concentration these pumps may need to be refilled sooner than 3 months as we titrate. A UDS is needed to verify patient's compliance with our office pain contract. This is ordered based off specific treatments related to chronic pain with the potential to abuse certain medications.
[2024-10-18 08:51] VITALS: BP 132/72; PULSE 75; RESP 16; O2SAT 100; BMI 34.2
[2024-10-18 08:57] VITALS: BP 124/75; PULSE 71; RESP 18; O2SAT 99
[2024-10-18 09:11] VITALS: BP 120/68; PULSE 71; RESP 16; O2SAT 100
== END 2024-10-18 09:11 | disposition home or self-care (01) ==
PROVIDERS: PCP Pediatrics; Visit Provider Nurse Practitioner Family
DX: Z45.1 Encounter for adjustment and management of infusion pump (principal); M51.16 Intervertebral disc disorders with radiculopathy, lumbar region; G89.4 Chronic pain syndrome; Z79.84 Long term (current) use of oral hypoglycemic drugs; Z79.899 Other long term (current) drug therapy; Z79.891 Long term (current) use of opiate analgesic; Z88.1 Allergy status to other antibiotic agents
CPT/HCPCS: 62370

== ENCOUNTER 2024-11-12 09:49 | Outpatient (POV) | payer BC, SELFPAY ==
--- OUTSIDE RECORDS SUMMARY | 2024-11-02 09:45 | XMS_ITS | Encounter Summary ---
Author [place] [address] Care Team Providers Care Charm Filter Operator Helper Name Role Phone Shivam Pimentel MD Primary Care Provider [phone] Reason for Referral * Mammography (Routine) - Pending Review Specialty Diagnoses / Procedures Referred By Funmilayo ghosh Referred To Contact Radiology Diagnoses Encounter for screening mammogram for malignant neoplasm of breast Procedures MM MAMMO DIGITAL PAMELA SCREEN BILAT Shivam Pimentel [email or web address] [address] Phone: tel: fax: Referral ID Status Reason Start Date Expiration Date V isits Requested Visits Authorized [id number] Pending Review 10/21/2024 10/21/2026 1 1 * Mammography (Routine) - Pending Review Specialty Diagnoses / Procedures Referred By Funmilayo t Referred To Contact Radiology Diagnoses Encounter for screening mammogram for malignant neoplasm of breast Procedures MM MAMMO DIGITAL PAMELA SCREEN BILAT Referral, Self Referral ID Status Reason Start Date Expiration Date V isits Requested Visits Authorized [id number] Pending Review 09/12/2024 09/12/2026 1 1 Reason for Visit * Mammography (Routine) - Pending Review Specialty Diagnoses / Procedures Referred By Funmilayo t Referred To Contact Radiology Diagnoses Encounter for screening mammogram for malignant neoplasm of breast Procedures MM MAMMO DIGITAL PAMELA SCREEN BILAT Schack, Shivam W, MD [address] [facility] [place] [address] Phone: tel: fax: Referral ID Status Reason Start Date Expiration Date V isits Requested Visits Authorized [id number] Pending Review 10/21/2024 10/21/2026 1 1 Encounter Details Date Type Department Care Team (Latest Contact Info) Description 11/02/2024 9:45 AM EDT - 11/02/2024 11:59 PM EDT Hospital Encounter [facility] [address] [place] [address] Referral, Self Encounter for screening mammogram for malignant neoplasm of breast Discharge Disposition: Home or Self Care Social History Tobacco Use Types Packs/Day Years Used Date Smoking Tobacco: Never Smokeless Tobacco: Never Alcohol Use Standard Drinks/Week Comments No 0 (1 standard drink = 0.6 oz pur e alcohol) Overall Financial Resource Strain (CARDIA) Answe r Date Recorded How hard is it for you to pa y for the very basics like food, housing, medical care, and heating? Not hard at all 11/18/2020 PHQ-2 Answer Date Recorded PHQ-2 Total Score 0 07/20/2021 [facility] - Occupational Stress Questionnaire Answer Date Recorded Do you feel stress - tense, restless, nervous, or anxious, or unable to sleep at night because your mind is troubled all the time - these days? Not at all 11/18/2020 Exercise Vital Sign Answer Date Recorde d On average, how many days pe r week do you engage in moderate to strenuous exercise (like a brisk walk)? 0 days 11/18/2020 On average, how many minutes do you engage in exercise at this level? 0 min 11/18/2020 Hunger Vital Sign Answer Date Recorded Within the past 12 months, y ou worried that your food would run out before you got the money to buy more. Never true 11/19/19 21 Within the past 12 months, t he food you bought just didn't last and you didn't have money to get more. Never true 11/18/2020 PRAPARE - Transportation Answer Date Re corded In the past 12 months, has l ack of transportation kept you from medical appointments or from getting medications? No 11/2020 In the past 12 months, has l ack of transportation kept you from meetings, work, or from getting things needed for daily living? No 11/18/2020 Sexually Active Control Partners Comments Yes Surgical Male Comments No Sex and Gender Information Value Date Recorded Sex Assigned at Not on file Legal Sex Female 1:44 PM EDT Gender Identity Not on file Sexual Orientation Not on file documented as of this encounter Last Filed Vital Signs Vital Sign Reading Time Taken Comments Blood Pressure - - Pulse - - Temperature - - Respiratory Rate - - Oxygen Saturation - - Inhaled Oxygen Concentration - - Weight 94.3 kg (208 lb) 11/02/2024 10:30 AM EDT Height 165.1 cm (5' 5 ) 11/02/2024 10:30 AM EDT Body Mass Index 34.61 11/02/2024 10:30 AM EDT documented in this encounter Functional Status * Is the person deaf or does he/she have serious difficulty hearing? Answer Date of Assessment Author No 07/20/2021 7:04 AM Bob Gomez CCMA * Is the person blind or does he/she have serious difficulty seeing even when wearing glasses? Answer Date of Assessment Author No 07/20/2021 7:04 AM Bob Gomez CCMA * Does this person have serious difficulty walking or climbing stairs? Answer Date of Assessment Author No 07/20/2021 7:04 AM Bob Gomez CCMA * Does this person have difficulty dressing or bathing? Answer Date of Assessment Author No 07/20/2021 7:04 AM Bob Gomez CCMA * Because of a physical, mental or emotional condition, does this person have difficulty doing errands alone such as visiting a doctor's office or shopping? Answer Date of Assessment Author No 07/20/2021 7:04 AM Bob Gomez CCMA documented as of this encounter Mental Status * Because of a physical, mental or emotional condition, does this person have serious difficulty concentrating, remembering or making decisions? Answer Entry Date Author No 07/20/2021 7:04 AM Bob Gomez CCMA documented in this encounter Medications at Time of Discharge acetaminophen 325 mg Oral Tab Take 325 mg by mouth 2 times daily. amLODIPine (NORVASC) 10 mg Oral Tablet TAKE 1 TABLET BY MOUTH DAILY 90 Tablet 3 09/19/2024 busPIRone (BUSPAR) 10 mg Oral TabletIndications :Major depressive disorder, recurrent episode, moderate (HCC) Take 1 Tablet by mouth 3 times daily. 270 Tablet 2 08/01/2024 celecoxib (CELEBREX) 200 mg Oral Capsule Take 1 Capsule by mouth 2 times daily for 360 days. 180 Capsule 3 08/19/2024 6 codeine-guaiFENes in (ROBITUSSIN AC) 10-100 mg/5 mL Oral Liquid Take 5 mL by mouth every 4 hours as needed for Cough. 120 mL 10/23/2023 DULoxetine (CYMBALTA) 30 mg Oral Capsule, Delayed Release(E.C.) Take 1 Capsule by mouth daily for 360 days. 90 Capsule 3 08/19/2024 6 fluticasone propionate (FLONASE) 50 mcg/actuation Nasl Magna, SuspensionIndicat ions:Acute non-recurrent sinusitis, unspecified location 1 SPRAY INTO EACH NOSTRIL EVERY 12 HRS X 3 DAYS. STOP FOR 2 DAYS. REPEAT IF NEEDED 16 mL 1 07/16/2021 fUROsemide (LASIX) 20 mg Oral TabletIndications :Peripheral edema TAKE ONE TABLET BY MOUTH ONCE DAILY NEEDED 30 Tab 10/23/2020 ibuprofen (ADVIL;MOTRIN) 200 mg tabletIndications :pain Take 600 mg by mouth every 8 hours as needed. 2 tabs Indications: Pain melatonin 10 mg Oral Tablet Take 10 Tabs by mouth daily. metFORMIN (GLUCOPHAGE XR) 500 mg Oral ER 24 hr tabletIndications :Prediabetes Take 1 Tablet by mouth daily (with breakfast) for 360 days. 90 Tablet 3 08/19/2024 6 montelukast (SINGULAIR) 10 mg Oral Tablet Take 1 Tablet by mouth every evening. 30 Tablet 10/14/2024 ondansetron (ZOFRAN-ODT) 4 mg Oral Tablet, Rapid DissolveIndicatio ns:Nausea DISSOLVE 1 TABLET ON THE TONGUE EVERY 6 HOURS NEEDED FOR NAUSEA 30 Tablet 10/17/2024 ondansetron (ZOFRAN-ODT) 4 mg Oral Tablet, Rapid DissolveIndicatio ns:Nausea Dissolve 1 Tablet by mouth every 6 hours as needed for Nausea. 30 Tablet 10/16/2024 propranoloL (INDERAL LA) 80 mg Oral Capsule,Sustained Action 24 hr TAKE 1 CAPSULE BY MOUTH DAILY 30 Capsule 11 08/23/2024 QUEtiapine (SEROQUEL) 25 mg Oral Tablet TAKE 1 TABLET BY MOUTH TWICE DAILY 60 Tablet 11 08/14/2024 rOPINIRole (REQUIP) 1 mg Oral Tablet Take 1 Tablet by mouth 2 times daily. 180 Tablet 1 05/17/2024 semaglutide (OZEMPIC) 0.25 mg or 0.5 mg(2 mg/1.5 mL) SubQ Pen Injector Subcutaneous (Inject under the skin) 0.25 mg once a week. documented as of this encounter Discharge Disposition Disposition Code Departure Means Destination Home or Self Care documented in this encounter Plan of Treatment Scheduled Orders Name Type Priority Associated Diagnoses Orde r Schedule MM MAMMO DIGITAL PAMELA SCREEN BILAT Imaging Routine Encounter for screening mammogram for malignant neoplasm of breast 1 Occurrences starting 09/12/2024 until 09/12/2026 documented as of this encounter Goals Goal Patient Goal Type Associated Problems Recent Progress Patient-Stated? Author Blood Pressure < 140/90 Blood Pressure 126/76(2024 7:56 AM EDT) No Shivam Pimentel MD Maintain a healthy diet, exercise regularly and maintain an ideal body weight General No Chey Phan RMA documented as of this encounter Procedures Procedure Name Priority Date/Time Associated Diagnosis Comments MM MAMMO DIGITAL PAMELA SCREEN BILAT Routine 11/02/2024 10:30 AM EDT Encounter for screening mammogram for malignant neoplasm of breast documented in this encounter Results * MM MAMMO DIGITAL PAMELA SCREEN BILAT (11/02/2024 10:30 AM EDT) Anatomical Region Laterality Modality Breast Bilateral Mammography 11/02/2024 10:3 0 AM EDT Impressions 11/04/2024 8:11 AM EDT Negative ([id number]) RECOMMENDATION: Routine Screening Mammogram in 1 Year Bilateral . . COMMENTS: DISCLAIMER *The patient was notified by MyChart or mail of the results for this examination. *The patient's information was entered into a reminder system with a target due date for the next breast imaging, in accordance with the [employer] and the Society of Breast Imaging recommendations. *Breast Imaging has a false negative rate of 15%. *Any patient with a palpable abnormality, unexplained by breast imaging, should be managed on a clinical basis by the attending physician. Narrative 11/04/2024 8:11 AM EDT EXAM: MM MAMMO DIGITAL PAMELA SCREEN BILAT EXAM DATE: 11/02/2024 10:30 AM INDICATION: Z12.31-Encounter for screening mammogram for malignant neoplasm of [id number] COMPARISON STUDIES: Compared with prior studies the most recent being 12/19/2018 MM MAMMO DIGITAL PAMELA DIAGN BILAT at [facility] 03/01/2017 MM MAMMO DIGITAL SCREENING W CAD BILAT at [facility] TISSUE DENSITY: The breasts are heterogeneously dense, which may obscure small masses. FINDINGS: No mammographic evidence of malignancy. Procedure Note Chapis Jay MD - 11/04/2024 EXAM: MM MAMMO DIGITAL PAMELA SCREEN BILAT EXAM DATE: 11/02/2024 10:30 AM INDICATION: Z12.31-Encounter for screening mammogram for malignantneoplasm of [id number] COMPARISON STUDIES: Compared with prior studies the most recent being 12/19/2018 MM MAMMO DIGITAL PAMELA DIAGN BILAT at [facility] 03/01/2017 MM MAMMO DIGITAL SCREENING W CAD BILAT at [facility] TISSUE DENSITY: The breasts are heterogeneously dense, which may obscuresmall masses. FINDINGS: No mammographic evidence of malignancy. IMPRESSION: Negative ([id number]) RECOMMENDATION: Routine Screening Mammogram in 1 Year Bilateral . . COMMENTS: DISCLAIMER *The patient was notified by MyChart or mail of the results for this examination. *The patient's information was entered into a reminder system with atarget due date for the next breast imaging, in accordance with the [employer] and the Society of Breast Imaging recommendations. *Breast Imaging has a false negative rate of 15%. *Any patient with a palpable abnormality, unexplained by breast imaging,should be managed on a clinical basis by the attending physician. Shivam Pimentel MD IMG MAMMOGRAPHY ORDERABLES Fin al Result documented in this encounter Visit Diagnoses Diagnosis Encounter for screening mammogram for malignant neoplasm of breast Other screening mammogram documented in this encounter Care Teams Charm Filter Operator Helper Relationship Specialty Start Date End Date Shivam Pimentel MD [address] [place], [place] [address] PCP - General 08/28/09 documented as of this encounter
--- OUTSIDE RECORDS SUMMARY | 2024-11-12 09:52 | XMS_ITS | Encounter Summary ---
Author Organization [facility] [address] Care Team Providers Care Camera Technician Name Role Phone Shivam Pimentel MD Primary Care Provider [phone] Reason for Visit * Reason Comments Medication Refill Encounter Details Date Type Department Care Team (Late st Contact Info) Description 10/16/2024 Refill [facility] [place] [address] [address] Shivam Pimentel MD [facility] [place] [address] [place] [address] Medication Refill Social History Tobacco Use Types Packs/Day Years [...] Date Recorded PHQ-2 Total Score 0 07/20/2021 [facility] [place] [facility]at ional [facility] - Occupational Stress [...] on file documented as of this encounter Functional Status * Is the [...] Bob Gomez CCMA documented in this encounter Ordered Prescriptions Prescription Sig Dispense Quantity Refills Last Filled Start Date End Date ondansetron (ZOFRAN-ODT) 4 mg Oral Tablet, Rapid DissolveIndication s:Nausea DISSOLVE 1 TABLET ON THE TONGUE EVERY 6 HOURS NEEDED FOR NAUSEA 30 Tablet 10/17/2024 documented in this encounter Plan of Treatment Not on file documented as of this encounter Goals Goal Patient Goal Type Associated Problems Recent Progress Patient-Stated? Author Blood Pressure < 140/90 Blood Pressure 126/76(2024 7:56 AM EDT) No Shivam Pimentel MD Maintain a healthy diet, exercise regularly and maintain an ideal body weight General No Chey Phan RMA documented as of this encounter Visit Diagnoses Diagnosis Nausea Nausea alone documented in this encounter Care Teams Camera Technician Relationship Specialty Start Date End Date Shivam Pimentel MD [address] [place] [id number] PCP - General 08/28/09 documented as of this encounter
--- OUTSIDE RECORDS SUMMARY | 2024-11-12 09:52 | XMS_ITS | Clinical Summary ---
Author Organization [facility] Address [address] [place] [address] Phone Care Team Providers Care Reed Fixer Name Role Phone Shivam Pimentel MD Primary Care Provider [phone] Allergies Active Allergy Reactions Criticality Noted Date Comments Ciprofloxacin Rash Methyl Salicylate-Menthol Rash 07/09/2020 Tetracycline Medications * This document contains information received from the source organization and may not represent a complete record from that organization. ibuprofen (ADVIL;MOTRIN) 200 mg tabletIndicati ons:pain Take 600 mg by mouth every 8 hours as needed. 2 tabs Indications: Pain Active fUROsemide (LASIX) 20 mg Oral TabletIndicati ons:Peripheral edema TAKE ONE TABLET BY MOUTH ONCE DAILY NEEDED 30 Tab 10/24/19 21 Active acetaminophen 325 mg Oral Tab Take 325 mg by mouth 2 times daily. Active melatonin 10 mg Oral Tablet Take 10 Tabs by mouth daily. Active fluticasone propionate (FLONASE) 50 mcg/actuation Nasl [place], SuspensionIndi cations:Acute non-recurrent sinusitis, unspecified location 1 SPRAY INTO EACH NOSTRIL EVERY 12 HRS X 3 DAYS. STOP FOR 2 DAYS. REPEAT IF NEEDED 16 mL 1 07/17/19 22 Active codeine-guaiFE Nesin (ROBITUSSIN AC) 10-100 mg/5 mL Oral Liquid Take 5 mL by mouth every 4 hours as needed for Cough. 120 mL 10/23/19 24 Active rOPINIRole (REQUIP) 1 mg Oral Tablet Take 1 Tablet by mouth 2 times daily. 180 Tablet 1 05/17/19 25 Active busPIRone (BUSPAR) 10 mg Oral TabletIndicati ons:Major depressive disorder, recurrent episode, moderate (HCC) Take 1 Tablet by mouth 3 times daily. 270 Tablet 2 08/02/19 25 Active QUEtiapine (SEROQUEL) 25 mg Oral Tablet TAKE 1 TABLET BY MOUTH TWICE DAILY 60 Tablet 11 08/15/19 25 Active semaglutide (OZEMPIC) 0.25 mg or 0.5 mg(2 mg/1.5 mL) SubQ Pen Injector Subcutaneous (Inject under the skin) 0.25 mg once a week. Active metFORMIN (GLUCOPHAGE XR) 500 mg Oral ER 24 hr tabletIndicati ons:Prediabete s Take 1 Tablet by mouth daily (with breakfast) for 360 days. 90 Tablet 3 08/20/19 25 026 Active DULoxetine (CYMBALTA) 30 mg Oral Capsule, Delayed Release(E.C.) Take 1 Capsule by mouth daily for 360 days. 90 Capsule 3 08/20/19 25 026 Active celecoxib (CELEBREX) 200 mg Oral Capsule Take 1 Capsule by mouth 2 times daily for 360 days. 180 Capsule 3 08/20/19 25 026 Active propranoloL (INDERAL LA) 80 mg Oral Capsule,Sustai binu Action 24 hr TAKE 1 CAPSULE BY MOUTH DAILY 30 Capsule 08/24/19 25 Active amLODIPine (NORVASC) 10 mg Oral Tablet TAKE 1 TABLET BY MOUTH DAILY 90 Tablet 3 09/20/19 25 Active montelukast (SINGULAIR) 10 mg Oral Tablet Take 1 Tablet by mouth every evening. 30 Tablet 10/15/19 25 Active ondansetron (ZOFRAN-ODT) 4 mg Oral Tablet, Rapid DissolveIndica tions:Nausea DISSOLVE 1 TABLET ON THE TONGUE EVERY 6 HOURS NEEDED FOR NAUSEA 30 Tablet 10/18/19 25 Active ondansetron (ZOFRAN-ODT) 4 mg Oral Tablet, Rapid DissolveIndica tions:Nausea Dissolve 1 Tablet by mouth every 6 hours as needed for Nausea. 30 Tablet 10/17/19 25 Active montelukast (SINGULAIR) 10 mg Oral Tablet Take 1 Tablet by mouth every evening. 30 Tablet 08/27/19 25 025 Discontinued Active Problems Patient Care Coordination No te Formatting of this note migh t be different from the original. Informed consents reviewed/signed for appropriate meds yes Controlled Substance Agreement reviewed/signed yes Comprehensive Urine Drug Screen: no Controlled substance [place] ([place] yes 02/28/2014 SOAPP:yes Problem Noted Date Diagnosed Date Febrile illness 11/15/2020 Metabolic syndrome 07/22/2020 Prediabetes 07/13/2020 Assessment & Plan (08/19/2024 8:09 AM EDT): Orders: HEMOGLOBIN A1C; Future metFORMIN (GLUCOPHAGE XR) 500 mg Oral ER 24 hr tablet; Take 1 Tablet by mouth daily (with breakfast) for 360 days. Assessment & Plan (08/19/2024 8:09 AM EDT): Orders: HEMOGLOBIN A1C; Future metFORMIN (GLUCOPHAGE XR) 500 mg Oral ER 24 hr tablet; Take 1 Tablet by mouth daily (with breakfast) for 360 days. Restless legs syndrome (RLS) 07/09/2020 DDD (degenerative disc disease), lumbar 07/09/19 Overview (07/09/2020): Dr Del Rosario in [place] inserted a pain pump Obesity, Class II, BMI 35-39.9 07/09/2020 Mass of Achilles tendon 07/22/2019 Assessment & Plan (07/22/2019 5:16 PM EDT): Left posterior Achilles tendon with painful thickening and masslike development at the inferior margin. Progressive over several months. No injury to the area. Recommend MRI for further evaluation. Essential hypertension 03/02/2017 Overview (03/02/2017): New onset - February 2017. Major depressive disorder, recurrent episode, mo derate 12/03/2012 Low back pain 10/10/2012 Overview (01/09/2020): Alignment is normal. No subluxation detected. Marrow signal is normal. No fracture or destructive lesion seen. Conus and cauda equina are normal. Intervertebral discs are normal. There is no evidence of disc protrusion, canal, or foraminal stenosis. Mild facet joint osteoarthritis noted at L5-S1 and to lesser extent L4-5. Pain pump implanted. Assessment & Plan (12/20/2021 9:22 AM EDT): At this time were going to set her return to work date as a tentative of February 12. We will complete her short-term disability paperwork today. We will ask her to follow-up in February if she still does not feel she is ready to return to work at that time. Assessment & Plan (01/09/2020 8:40 AM EDT): She is not sure she can continue to work due to chronic back pain. Feels she cannot adequately perform her duties with limitations imposed by back pain. May seek short term disability. 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 [address] [place] [address] Referral, Self Encounter for screening mammogram for malignant neoplasm of breast Discharge Disposition: Home or Self Care 10/16/2024 [place] [facility] [place] [address] [place] [phone] hSivam Pimentel MD Medication Refill 10/16/[address] [place] [phone] Shivam Pimentel MD Medication Refill 10/12/2024 Refill [facility] [place] [address] [place] [phone] Shivam Pimentel MD Medication Refill 09/17/[address] [place] [phone] Shivam Pimentel MD Medication Refill 08/29/2024 Results Follow-Up [address] [place] [phone] Shannon [place], NELA COMPREHENSIVE METABOLIC PANEL, CBC WITH DIFF, HEMOGLOBIN A1C, Additional followed-up results: 2 08/23/[address] [place] [phone] Shivam Pimentel MD Medication Refill 08/23/[address] [place] [address] Shivam Pimentel MD Medication Refill 08/20/[address] [place] [phone] Shivam Pimentel MD Medication Refill 08/19/2024 8:00 AM EDT Office Visit [address] [place] [phone] Shivam Pimentel MD Annual physical exam (Primary Dx); Prediabetes; Screening for colon cancer; Prediabetes 08/18/2024 Travel 08/13/[address] [place] [phone] Shivam Pimentel MD Medication Refill from Last 3 Months Immunizations Immunization Administration Dates Next Due Influenza Intradermal 02/21/2014,03/07/2013 Influenza Vaccine, Unspecified Formulation 02/12 Pfizer SARS-CoV-2 Vaccine 12+ Yrs (Purple Cap) 0 06/12/2020,05/28/2020 Tdap 02/05/2020 Surgical History Surgery Date Site/Laterality Comments SECTION 2003 TUBAL LIGATION 2002 LEEP 2000 ENDOMETRIAL ABLATION 2006 BUNIONECTOMY 2006 R TOE LAP BAND 2006 LAP BAND 04/14/06 CYSTOSCOPY 08/01/2012 Ureter/Right CYSTOSCOPY, RIGHT URETEROSCOPY, RIGHT URETERAL DILITATION, LITHOCLAST STONE MANIPULATION, WITH RIGHT STENT INSERTION; Surgeon: Amrit Burdick MD; Location: [facility]; Service: Urology Medical devices from this surgery are in the Medical Devices section. CYSTOSCOPY 08/01/2012 Ureter/Right Surgeon: Amrit Burdick MD; Location: [facility]; Service: Urology Medical devices from this surgery are in the Medical Devices section. STOMACH SURGERY gastric banding CYSTOSCOPY 08/09/2012 Right CYSTOSCOPY RIGHT STENT REMOVAL; Surgeon: Amrit Burdick MD; Location: [facility]; Service: Urology FL GUIDED LUMBAR PUNCTURE DIAGNOSTIC 11/16/2020 FL GUIDED LUMBAR PUNCTURE DIAGNOSTIC 11/16/2020 FTT XRAY Medical History Medical History Date Comments Depression Gestational diabetes Allergy seasonal Other disorders of kidney and ureter kidney stone Hx of laparoscopic gastric banding Essential hypertension 03/02/2017 Family History Medical History Relation Name Comments Depression Father Breast Cancer Mother Depression Paternal Grandfather Depression Paternal Grandmother Relation Name Status Comments Father Mother Alive Paternal Grandfather Paternal Grandmother Social History Tobacco Use Types Packs/Day Years Used Date Smoking Tobacco: Never Smokeless Tobacco: Never Tobacco Cessation:Counseling Given: Not Answered Alcohol Use Standard Drinks/Week Comments No 0 (1 standard drink = 0.6 oz pur e alcohol) Overall Financial Resource Strain (CARDIA) Answe r Date Recorded How hard is it for you to pa y for the very basics like food, housing, medical care, and heating? Not hard at all 11/18/2020 PHQ-2 Answer Date Recorded PHQ-2 Total Score 0 07/20/2021 [facility] [place] of Occupat ional Health - Occupational Stress [...] on file Sexual Orientation Not on file Obstetrics History Para Term AB IAB SAB Ectopic Multiple Livin g Live Births 2 Last Filed Vital Signs Vital Sign Reading Time Taken Comments Blood Pressure 126/76 08/19/2024 7:56 AM EDT Pulse 78 08/19/2024 7:56 AM EDT Temperature 36.7 C (98 F) 08/19/2024 7:56 AM EDT Respiratory Rate 18 08/19/2024 7:56 AM EDT Oxygen Saturation 97% 08/19/2024 7:56 AM EDT Inhaled Oxygen Concentration - - Weight 94.3 kg (208 lb) 11/02/2024 10:30 AM EDT Height 165.1 cm (5' 5 ) 11/02/2024 10:30 AM EDT Body Mass Index 34.61 11/02/2024 10:30 AM EDT Plan of Treatment Health Maintenance Due Date Last Done Comments Hepatitis B Vaccine (1 of 3 - 19+ 3-dose series) 07/26/1991 HPV/Pap Cotest 2002 Colonoscopy 2017 FIT 2017 Sigmoidoscopy 2017 Virtual Colonography 2017 Cervical Cancer Screening 02/07/2020 Pap Smear 02/07/2020 02/06/2017, 11/08/2007 Pneumococcal Vaccine 50+ (1 of 1 - PCV) 2022 Zoster (1 of 2) 2022 Annual Wellness Exam 08/19/2025 08/19/2024, 07/09/19 14 Breast Cancer Screening 11/02/2026 11/03/19 25, 12/19/2018, 03/01/2017, Additional history exists Cologuard 09/01/2027 08/31/2024, 08/31/2024 Colon Cancer Screening 09/01/2027 DTaP/TDaP/Td (2 - Td or Tdap) 02/04/2030 02/05/2020 COVID-19 Vaccine Completed 03/11/2024, , 08/24/2021, Additional history exists Influenza Vaccine Completed 03/11/2024, , 02/12/2019, Additional history exists Meningococcal B Vaccine Aged Out No l onger eligible based on patient's age to complete this topic Goals Goal Patient Goal Type Associated Problems Recent Progress Patient-Stated? Author Blood Pressure < 140/90 Blood Pressure 126/76(2024 7:56 AM EDT) No Shivam Pimentel MD Maintain a healthy diet, exercise regularly and maintain an ideal body weight General No Chey Phan RMA Medical Devices Implanted Type Area Security Installation Sales Technician Device Identifier Shelf Expiration Date Model / Serial / Lot Stent Contour 6 X 24 #[id number] - [id number] Implanted:Qty: 1 on 08/01/2012 by Amrit Burdick MD at [facility] Stent Right: Ureter [employer]:MICROVASIVE: UROLOGY 04/14/2015 [id number] / / [id number] Procedures Procedure Name Priority Date/Time Associated Diagnosis Comments MM MAMMO DIGITAL PAMELA SCREEN BILAT Routine 11/02/2024 10:30 AM EDT Encounter for screening mammogram for malignant neoplasm of breast COLOGUARD Routine 08/31/2024 6:00 PM EDT Screening for colon cancer LIPID SCREEN Routine 08/19/2024 8:14 AM EDT Annual physical exam HEMOGLOBIN A1C Routine 08/19/2024 8:14 AM EDT Prediabetes CBC WITH DIFF Routine 08/19/2024 8:14 AM EDT Annual physical exam COMPREHENSIVE METABOLIC PANEL Routine 08/19/2024 8:14 AM EDT Annual physical exam CHEESE WEIGHER CYTOLOGY REPORT Routine 02/06/2017 1 1:03 AM EDT from Last 3 Months or Most Recently Relevant to Health Maintenance Results * MM MAMMO DIGITAL PAMELA SCREEN BILAT (11/02/2024 10:30 AM EDT) Anatomical Region Laterality Modality Breast Bilateral Mammography 11/02/2024 10:3 0 AM EDT Impressions 11/04/2024 8:11 AM EDT Negative ([id number]) RECOMMENDATION: Routine Screening Mammogram in 1 Year Bilateral . . COMMENTS: DISCLAIMER *The patient was notified by MyChart or mail of the results for this examination. *The patient's information was entered into a reminder system with a target due date for the next breast imaging, in accordance with the [place] [employer] and the Society of [...] for screening mammogram for malignant neoplasm of [id number] COMPARISON STUDIES: Compared with prior studies the most recent being 12/19/2018 MM MAMMO DIGITAL PAMELA DIAGN BILAT at [facility] 03/01/2017 MM MAMMO DIGITAL SCREENING W CAD BILAT at [facility] TISSUE DENSITY: The breasts are heterogeneously dense, which may obscure small masses. FINDINGS: No mammographic evidence of malignancy. Procedure Note Chapis Jay MD - 11/04/2024 EXAM: MM MAMMO DIGITAL PAMELA SCREEN BILAT EXAM DATE: 11/02/2024 10:30 AM INDICATION: Z12.31-Encounter for screening mammogram for malignantneoplasm of [id number] COMPARISON STUDIES: Compared with prior studies the most recent being 12/19/2018 MM MAMMO DIGITAL PAMELA DIAGN BILAT at [facility] 03/01/2017 MM MAMMO DIGITAL SCREENING W CAD BILAT at [facility] TISSUE DENSITY: The breasts are heterogeneously dense, which may obscuresmall masses. FINDINGS: No mammographic evidence of malignancy. IMPRESSION: Negative (GHQ-Uigolozq-6) RECOMMENDATION: Routine Screening Mammogram in 1 Year Bilateral . . COMMENTS: DISCLAIMER *The patient was notified by MyChart or mail of the results for this examination. *The patient's information was entered into a reminder system with atarget due date for the next breast imaging, in accordance with the [place] [employer] and the Society of Breast Imaging recommendations. *Breast Imaging has a false negative rate of 15%. *Any patient with a palpable abnormality, unexplained by breast imaging,should be managed on a clinical basis by the attending physician. Shivam Pimentel MD IMG MAMMOGRAPHY ORDERABLES Fin al Result * COLOGUARD (08/31/2024 6:00 PM EDT) COLOGUARD CLINICAL REPORT Negative Negative [facility] Comment: The Cologuard (TM) test was performed on this specimen. NEGATIVE TEST RESULT. A negative Cologuard result indicates a low likelihood that a colorectal cancer (CRC) or advanced adenoma (adenomatous polyps with more advanced pre-malignant features) is present. The chance that a person with a negative Cologuard test has a colorectal cancer is less than 1 in 1500 (negative predictive value >99.9%) or has an advanced adenoma is less than 5.3% (negative predictive value 94.7%). These data are based on a prospective cross-sectional study of 10,000 individuals at average risk for colorectal cancer who were screened with both Cologuard and colonoscopy. (Yesenia Polo al, N Engl J Med 2014;370(14):3630-0442) The normal value (reference range) for this assay is negative. COLOGUARD RE-SCREENING RECOMMENDATION: Periodic colorectal cancer screening is an important part of preventive healthcare for asymptomatic individuals at average risk for colorectal cancer. Following a negative Cologuard result, the [place] [employer] and U.S. Multi-Society Task Force screening guidelines recommend a Cologuard re-screening interval of 3 years. References: [place] [employer] Guideline for Colorectal Cancer Screening: https://www.cancer.org/cancer/eizqk-scqfet-sbpxwm/frpplomzi-xtvwdhvsm-cwuaoed/ac s-rec ommendations.html.; Bill DK, Sherrie CR, Halley FreitasK, Colorectal Cancer Screening: Recommendations for Physicians and Patients from the U.S. Multi-Society Task Force on Colorectal Cancer Screening , Am J Gastroenterology 2017; 112:3095-4787. TEST DESCRIPTION: Composite algorithmic analysis of stool DNA-biomarkers with hemoglobin immunoassay. Quantitative values of individual biomarkers are not reportable and are not associated with individual biomarker result reference ranges. Cologuard is intended for colorectal cancer screening of adults of either sex, 45 years or older, who are at average-risk for colorectal cancer (CRC). Cologuard has been approved for use by the U.S. FDA. The performance of Cologuard was established in a cross sectional study of average-risk adults aged 50-84. Cologuard performance in patients ages 45 to 49 years was estimated by sub-group analysis of near-age groups. Colonoscopies performed for a positive result may find as the most clinically significant lesion: colorectal cancer [4.0%], advanced adenoma (including sessile serrated polyps greater than or equal to 1cm diameter) [20%] or non- advanced adenoma [31%]; or no colorectal neoplasia [45%]. These estimates are derived from a prospective cross-sectional screening study of 10,000 individuals at average risk for colorectal cancer who were screened with both Cologuard and colonoscopy. (Yesenia Polo al, N Engl J Med 2014;370(14):9797-6325.) Cologuard may produce a false negative or false positive result (no colorectal cancer or precancerous polyp present at colonoscopy follow up). A negative Cologuard test result does not guarantee the absence of CRC or advanced adenoma (pre-cancer). The current Cologuard screening interval is every 3 years. ([place] [employer] Society and U.S. Multi-Society Task Force). Cologuard performance data in a 10,000 patient pivotal study using colonoscopy as the reference method can be accessed at the following location: [email or web address]/results. Additional description of the Cologuard test process, warnings and precautions can be found at www.[email or web address].[email or web address]. Stool 08/31/2024 6:00 PM EDT 09/04/2024 12:24 PM EDT us Shivam Pimentel MD [employer]ACT [employer]ENCE - ORDERABLES Fin al Result [facility], [address] [address], [facility] [address] [place] [address] * (ABNORMAL) CBC WITH DIFF (08/19/2024 8:14 AM EDT) WBC 6.8 3.7 - 10.3 x10(3)/mcL 08/19/2024 4:31 PM EDT [facility] RBC 4.27 3.90 - 5.20 x10(6)/mcL 08/19/2024 4:31 PM EDT [facility] Hgb 11.3 11.2 - 15.7 g/dL 08/19/2024 4:31 PM EDT [facility] Hct 37.4 34.0 - 45.0 % 08/19/2024 4:31 PM EDT [facility] MCV 87.6 80.0 - 100.0 fL 08/19/2024 4:31 PM EDT [facility] MCH 26.5 26.0 - 34.0 pg 08/19/2024 4:31 PM EDT [facility] MCHC 30.2(L) 30.7 - 35.5 g/dL 08/19/2024 4:31 PM EDT [facility] RDW 15.3(H) <=14.9 % 08/19/2024 4:31 PM EDT [facility] Platelet 378(H) 155 - 369 x10(3)/mcL 08/19/2024 4:31 PM EDT [facility] MPV 10.2 8.8 - 12.5 fL 08/19/2024 4:31 PM EDT [facility] Neut Percent 39.9 % 08/19/2024 4:31 PM EDT [facility] Comment:Neutrophils equals s egs plus bands Imm Gran% 0.3 % 08/19/2024 4:31 PM EDT [facility] Comment:Automated count of m etamyelocytes, myelocytes and promyelocytes. Lymph Percent 43.4 % 08/19/2024 4:31 PM EDT [facility] [place] Percent 9.6 % 08/19/2024 4:31 PM EDT [facility] Eos Percent 5.3 % 08/19/2024 4:31 PM EDT [facility] Baso Percent 1.5 % 08/19/2024 4:31 PM EDT [facility] Neut # 2.7 1.6 - 6.1 x10(3)/mcL 08/19/2024 4:31 PM EDT [facility] Comment:Neutrophils equals s egs plus bands IMMGRAN# 0.0 0.0 - 0.1 x10(3)/[facility] 08/19/2024 4:31 PM EDT [facility] Comment:Automated count of m etamyelocytes, myelocytes and promyelocytes. An absolute IG <0.1 is reported as 0.0. Lymph # 3.0 1.2 - 3.9 x10(3)/mcL 08/19/2024 4:31 PM EDT [facility] [place] # 0.7 0.3 - 0.9 x10(3)/[facility] 08/19/2024 4:31 PM EDT [facility] Eos# 0.4 0.0 - 0.5 x10(3)/mcL 08/19/2024 4:31 PM EDT [facility] Baso # 0.1 0.0 - 0.1 x10(3)/[facility] 08/19/2024 4:31 PM EDT [facility] Blood VENOUS BLOOD / Unknown Venipuncture / Unknown 08/19/2024 8:14 AM EDT 08/19/2024 8:14 AM EDT Shivam Pimentel MD HEMATOLOGY ORDERABLES Final Re sult Performing Organization Address [facility] [[email or web address]] Co de Phone Number [facility] [address] , [place] [address] * (ABNORMAL) HEMOGLOBIN A1C (08/19/2024 8:14 AM EDT) Hgb A1C 5.8(H) 4.2 - 5.6 % 08/19/2024 4:56 PM EDT [facility] Avg Glucose 120 mg/dL 08/19/2024 4:56 PM EDT [facility] Blood VENOUS BLOOD / Unknown Venipuncture / Unknown 08/19/2024 8:14 AM EDT 08/19/2024 8:14 AM EDT Narrative [facility] [employer] [facility] - 08/19/2024 4:56 PM EDT REFERENCE RANGE: Normal: 4.0-5.6% Pre-diabetes: 5.7-6.4% Provisional diagnosis of diabetes: >6.4% Hgb F>10% and anything which shortens red cell survival, such as hemolytic anemia, or unstable hemoglobin variants such as HbSS, HbSC, or HbCC, will lower the HbA1c value associated with a given level of glycemic control. Shivam Pimentel MD CHEMISTRY ORDERABLES Final Res ult Performing Organization Address [facility] [[email or web address]] Co de Phone Number [facility] [address] , [place] [address] * (ABNORMAL) LIPID SCREEN (08/19/2024 8:14 AM EDT) Cholesterol 221(H) <200 mg/dL 08/19/2024 5:10 PM EDT [facility] Comment: < 200 Desirable 200 - 239 Borderline High >= 240 High Triglyceride 176(H) <150 mg/dL 08/19/2024 5:10 PM EDT [facility] Comment: < 150 Normal 150 - 199 Borderline High 200 - 499 High >= 500 Very High HDL 54 >=40 mg/dL 08/19/2024 5:10 PM EDT [facility] Comment: > 60 Optimal 40 - 60 Acceptable < 40 Low LDL Calculated 136(H) <100 mg/dL 08/19/2024 5:10 PM EDT [facility], [facility] Comment: < 100 Optimal 100 - 129 Near or above optimal 130 - 159 Borderline High 160 - 189 High >= 190 Very High The National Institutes of Health (NIH) equation is used for all lipid panels that report calculated LDL (LDL-C). Non-HDL-C Calculated 167(H) <=129 mg/dL 08/19/2024 5:10 PM EDT [facility] Comment: <130 Desirable 130-159 Above Desirable 160-189 Borderline High 190-219 High >= 220 Very High Fasting Specimen? Yes None 025 5:10 PM EDT [facility] [facility], [facility] Blood VENOUS BLOOD / Unknown Venipuncture / Unknown 08/19/2024 8:14 AM EDT 08/19/2024 8:14 AM EDT us Shivam Pimentel MD CHEMISTRY ORDERABLES Final Res ult [facility], [facility] HEALTHCARE [address] [facility] , [place] [address] * COMPREHENSIVE METABOLIC PANEL (08/19/2024 8:14 AM EDT) Sodium 139 136 - 145 mmol/L 08/19/2024 5:10 PM EDT [facility] Potassium 4.7 3.5 - 5.0 mmol/L 08/19/2024 5:10 PM EDT [facility] Chloride 107 98 - 107 mmol/L 08/19/2024 5:10 PM EDT [facility] Total CO2 22 22 - 29 mmol/L 08/19/2024 5:10 PM EDT [facility] Anion Gap 10 7 - 16 mmol/L 08/19/2024 5:10 PM EDT [facility] Calcium 9.4 8.6 - 10.4 mg/dL 08/19/2024 5:10 PM EDT [facility] Glucose Lvl 96 70 - 99 mg/dL 08/19/2024 5:10 PM EDT [facility] BUN 14 6 - 20 mg/dL 08/19/2024 5:10 PM EDT [facility] Creatinine 0.66 0.51 - 1.30 mg/dL 08/19/2024 5:10 PM EDT [facility], [facility] Albumin 4.3 3.5 - 5.2 gm/dL 08/19/2024 5:10 PM EDT [facility], [facility] Total Protein 6.9 6.4 - 8.3 gm/dL 08/19/2024 5:10 PM EDT [facility], [facility] Bili Total 0.4 0.2 - 1.3 mg/dL 08/19/2024 5:10 PM EDT [facility] ALT 17 <=41 U/L 08/19/2024 5:10 PM EDT [facility] AST 19 <=40 U/L 08/19/2024 5:10 PM EDT [facility], [facility] Alk Phos 39 36 - 123 U/L 08/19/2024 5:10 PM EDT [facility], [facility] eGFR (CKD-EPIcr 2020) 105 >=60 mL/min/1.7 3 m2 08/19/2024 5:10 PM EDT [facility], [facility] Comment:Estimated GFR was ca lculated using the CKD-EPIcr (2020) equation refit without race. The equation is recommended by the National Kidney Foundation - [place] [employer] of Nephrology Task Force. Blood VENOUS BLOOD / Unknown Venipuncture / Unknown 08/19/2024 8:14 AM EDT 08/19/2024 8:14 AM EDT us Shivam Pimentel MD CHEMISTRY ORDERABLES Final Res ult [facility] [address] [facility] , [place] [address] * CHEESE WEIGHER CYTOLOGY REPORT (02/06/2017 11:03 AM EDT) Airline Operations Agent Cytology Report PATIENT NAME:MELISSA PALACIOS Airline Operations Agent Cytology Report Accession Number Collected Date/Time Received Date/Time [id number] 02/06/17 11:03 EDT 02/06/17 16:29 EDT GY Specimen Source Specimen Vag/Cerv/Endocx?: Cerv/Endocerv Statement of Adequacy Satisfactory for Evaluation. Transformation Zone Present. Diagnosis NEGATIVE FOR INTRAEPITHELIAL LESION OR MALIGNANCY. Comment Note: Concurrent High-Risk HPV mRNA testing is NEGATIVE. Endometrial cells present. The Pap Smear is a screening test that aids in the detection of cervical cancer and cancer precursors. Both false positive and false negative results can occur. The test should be used at regular intervals, and positive results should be confirmed before definitive therapy. Processed using the Datran MediaPrep Cheese Wrapper automated cytology screening device ([employer]). Concrete Spreader: FRANSISCO GRIFFIN 02/07/2017 Completed by: DORYS Oneal (Electronically signed by) 02/08/2017 [facility] 02/06/2017 11:0 3 AM EDT us Chris Nguyen MD PATHOLOGY ORDERABLES Final Result Performing Organization Address City/State/[facility] [[email or web address]] Co de Phone Number [facility] [address] [place] [address] from Last 3 Months or Most Recently Relevant to Health Maintenance Insurance [place] PPO JC PPO Advance Directives For more information, please contact: [phone] * Full Code (Latest Code Status on File) Date Activated Date Inactivated Comments 11/15/2020 4:03 AM 11/17/2020 5:26 PM Care Teams Reed Fixer Relationship Specialty Start Date End Date Shiv[place] [address] [place] [address] PCP - General 08/28/09
--- OUTSIDE RECORDS SUMMARY | 2024-11-12 09:52 | XMS_ITS | Encounter Summary ---
Author Organization [place] [address] Care Team Providers Care Baggage Checker Name Role Phone Shivam Pimentel MD Primary Care Provider [phone] Encounter Details Date Type Department Care Team (Late st Contact Info) Description 11/04/2024 Results Follow-Up SEP Del [address] [place] [address] Shivam Pimentel MD [address] [place] [address] MM MAMMO DIGITAL PAMELA SCREEN BILAT Social History Tobacco Use Types Packs/Day Years [...] Date Recorded PHQ-2 Total Score 0 07/20/2021 [place] [facility] - Occupational Stress [...] Bob Gomez CCMA documented in this encounter Plan of Treatment Not on file documented as of this encounter Goals Goal Patient Goal Type Associated Problems Recent Progress Patient-Stated? Author Blood Pressure < 140/90 Blood Pressure 126/76(2024 7:56 AM EDT) No Shivam Pimentel MD Maintain a healthy diet, exercise regularly and maintain an ideal body weight General No Chey Phan, CATHERINE documented as of this encounter Visit Diagnoses Not on filedocumented in this encounter Care Teams Baggage Checker Relationship Specialty Start Date End Date Shivam Pimentel MD [address] [place] [id number] PCP - General 08/28/09 documented as of this encounter
--- OUTSIDE RECORDS SUMMARY | 2024-11-12 09:52 | XMS_ITS | Continuity of Care Document ---
Author Organization [facility] Address [address] [facility] [address] [place] [address] Insurance Providers Payer Plan Claims Address Claims Phone Policy Number Group Number Relation Employer Guarantor Name Guarantor Guarantor Address Guarantor Phone TODD Becerra [address], [place] [address] tel:[phone] Self Melissa Stone [address] [place], [place] [id number] [facility]j [facility] [id number] Self Melissa Bertha [address] [place] [address] Todd Lambert Progr am Out [id number] Self Melissa Stone [address] [place] [address] Problems Condition ICD9 code ICD10 code SNOMED code Start Date End Date S tatus Encounter for screening for other metabolic disorders Z13.228 Results No Results Allergies, adverse reactions, alerts No known allergies and adverse reactions Medications No administered medications reported Vital Signs No vital signs reported Social History No smoking Hx information available
--- OUTSIDE RECORDS SUMMARY | 2024-11-12 09:52 | XMS_ITS | Data Portability ---
Author Organization [place] [facility] [place] Address [address] [place] [address] Care Team Providers Care Typesetting Machine Operator/Tender Name Role Phone BUD BROWNLEE Primary Care Provider Assessment No assessment recorded. Plan of Treatment Reminders Order Date Submit Date Provider Last Modified By Organization Details Last Modified Time Details Appointments None recorded. Lab streptococ cus group A DNA 2024 025 [facility] Immediate Care- Floor 1, [address], [address] [facility], [address], [place], [address], 5 17:02:06 influenza virus A + B and SARS CoV 2 (COVID-19) and RSV RNA panel, PORTILLO+probe, respirator y specimen 2024 025 [facility] Immediate Care- Floor 1, [address], [address] [facility], [address], [place], [address], 5 17:02:06 Referral None recorded. Procedures None recorded. Surgeries None recorded. Imaging None recorded. Medication Orders benzonatat e 100 mg capsule 2024 025 [id number], [address] [place], [address], 15:39:36 Patient TargetsNo targets recorded. Patient Instructions Encounter Date Encounter Id Patient Instructions Last Modified By Organization Details Last Modified Time 06/12/2024 [id number] Patient educatio n given. Discussed results with the patient. Viral testing negative. Still suspect viral source. Contagious until afebrile for 24 hours without fever reducing medication. Continue to increase rest and supportive care. F/u if symptoms persist, or go to PCP for further evaluation. Go to the ED if symptoms become severe. Patient agrees with the plan. [email or web address] Not available 06/14/2024 09:53:14 I have reviewed the Past medical, Family and Social Histories along with ROS and all orders in today's record, and have noted any changes. [email or web address] Not available 06/12/2024 15:28:49 Reason for Referral None Reported. Results Created Date Observation Date Name Description Value Unit Range Abnormal Flag Note LastModifiedBy Organization Detail LastModifiedTime 06/12/1906/12/2024 influ zara virus A + B and SARS CoV 2 (COVI D-19) and RSV RNA panel , PORTILLO+p robe, respi rator y speci men FLU A negati ve Not Available [facility] Care- Floor 1, [address], [address], 06/12/2024 15:28:34 06/12/19 25 06/12/2024 influ zara virus A + B and SARS CoV 2 (COVI D-19) and RSV RNA panel , PORTILLO+p robe, respi rator y speci men FLU B negati ve Not Available [facility]- Floor 1, [address], [place], [address], 06/12/2024 15:28:34 06/12/19 25 06/12/2024 influ zara virus A + B and SARS CoV 2 (COVI D-19) and RSV RNA panel , PORTILLO+p robe, respi rator y speci men SARS-CoV-2 negati ve Not Available [facility]- Floor 1, [address], [place], [address], 06/12/2024 15:28:34 06/12/19 25 06/12/2024 influ zara virus A + B and SARS CoV 2 (COVI D-19) and RSV RNA panel , PORTILLO+p robe, respi rator y speci men RSV negati ve Not Available [facility] Care- Floor 1, [address], [place], [address], 06/12/2024 15:28:34 06/12/19 25 06/12/2024 strep tococ cus group A DNA Strep negati ve Not Available [facility] Care- Floor 1, [address], [place], [address], 06/12/2024 15:27:02 Result Notes None recorded. Medical Equipment None Reported. Allergies Allergen ID Allergen Name Allergen Category Reaction Reaction Severity Criticality Documentation Date Start Date Code Code System Note Provider Name and Address Organization Details Recorded Time 314264 tetracycl ine medicatio n vomiting Not available Not available 06/12/2024 68207 RxNorm Stephania Guajardo beth [facility] & [place] 5 15:23:08 645576 Cipro medicatio n rash Not available Not available 06/12/2024 63873 3 RxNorm Stephania campos SHRUTHI [facility] & [place] 5 15:23:26 Medications Name Sig Start Date Stop Date Status Note LastModified by Organization Details LastModified Time quetiapine 25 mg tablet TAKE 1 TABLET BY MOUTH 2 TIMES DAILY. active Not Available Not Available No t Available celecoxib 200 mg capsule TAKE 1 CAPSULE BY MOUTH TWICE DAILY. active Not Available Not Available No t Available ropinirole 1 mg tablet TAKE 1 TABLET BY MOUTH 2 TIMES DAILY. active Not Available Not Available No t Available benzonatate 100 mg capsule Take 1 capsule 3 times a day by oral route as needed for 5 days. 2024 active Not Available Not Available Not Avai lable propranolol ER 80 mg capsule,24 hr,extended release TAKE 1 CAPSULE BY MOUTH DAILY. active Not Available Not Available No t Available ondansetron 4 mg disintegrating tablet TAKE 1 TABLET BY MOUTH EVERY 6 HOURS NEEDED FOR NAUSEA. active Not Available Not Available No t Available metformin ER 500 mg tablet,extended release 24 hr TAKE 1 TABLET BY MOUTH DAILY (WITH BREAKFAS T). * MUST MAKE APPT active Not Available Not Available No t Available duloxetine 30 mg capsule,delayed release TAKE 1 CAPSULE BY MOUTH DAILY * MUST MAKE APPT active Not Available Not Available No t Available BuSpar active Not Available Not Availa ble Not Available Vitals Date Recorded Body height Body mass index (BMI) Body weight Body temperature Oxygen saturation Oxygen saturation in Arterial blood by Pulse oximetry Heart rate Systolic blood pressure Diastolic blood pressure Provider Name and Address Organization Details Last Updated DateTime 5 165.1 cm 34.8 kg/m2 64797.8 1 g 98.6 [degF] 97 % 97 % 81 /min 118 mm[Hg] 70 mm[Hg] Stephania Guajardo [facility] & [place] 5 15:22:15 Social History None recorded. 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 Family History Nothing Reported. Medical History No medical history recorded. Gynecological HistoryNo gynecological history recorded. Obstetrics History GPAL:G 0 P 0 0 0 0 Past Encounters Encounter ID Performer Location Encounter Start Date Encounter Closed Date Diagnosis/Indication Diagnosis SNOMED-CT Code Diagnosis ICD10 Code Diagnosis Note [id number] Sergio Rasmussen [facility] Immediate Care- Floor 1, [address] [place] [address],[address] [address] 06/12/2024 14:30:37 06/12/2024 15:38:23 Sore throat 837154748 J02.9 Cough 90808228 R05.1 Generalize d aches and pains 00075747 R52 Health Concerns Section Related Observation LastModified by Organization Detai ls LastModified Time None Recorded Concern Status LastModified by Organization Details LastModified Time None Recorded Advance Directives Directive None Recorded Payers Insurance Date Sequence Insurance Name Policy Number Policy Turcios Covered Member ID Turcios Member ID Guarantor Name 06/12/2024 1 [place] [id number] Melissa Stone [id number] Melissa Stone Notes Date Note Type Note Provider Name and Address Organization Details Recorded Time 06/12/2024 text/html 53 y/o female presents to the clinic after developing fatigue, BA, PERRY, nausea, ST, dry cough and congestion over the last 16 hours. She had chills two nights ago, but V/D, abdominal pain, SOA or new rashes. Patient takes Zyretc daily and Mucinex without much relief. Patient was recent exposed to a co-worker who tested positive for Flu. No other complaints. Claudio Andrew PA-C [address] [place] [address], [address], [place], [address], [facility] [place] 06/14/2024 09:53:48 OBGyn Episode No OBEpisode recorded.
--- OUTSIDE RECORDS SUMMARY | 2024-11-12 09:52 | XMS_ITS | Encounter Summary ---
Author Organization [place] [address] Care Team Providers Care Rolling Machine Tender Name Role Phone Shivam Pimentel MD Primary Care Provider [phone] Reason for Visit * Reason Comments Medication Refill Encounter Details Date Type Department Care Team (Late st Contact Info) Description 09/17/2024 Refill SEP Del [facility] [place] [address] Shivam Pimentel MD [facility] [place] [address] [place] [address] Medication Refill Social History Tobacco Use [...] Date Recorded PHQ-2 Total Score 0 07/20/2021 [facility] [place] of Occupat ional Health - Occupational Stress [...] Refills Last Filled Start Date End Date amLODIPine (NORVASC) 10 mg Oral Tablet TAKE 1 TABLET BY MOUTH DAILY 90 Tablet 3 09/19/2024 documented in this encounter Miscellaneous Notes * Telephone Encounter - Grace Grier CPhT - 09/19/2024 8:21 AM EDT Amlodipine 10mg - Future Visit: na Last Assessed Visit: na Follow-Up Date: na Appointment protocol failed. No remedios supply sent to pharmacy. Routed to Office. documented in this encounter Plan of Treatment Not on file documented as of this encounter Goals Goal Patient Goal Type Associated Problems Recent Progress Patient-Stated? Author Blood Pressure < 140/90 Blood Pressure 126/76(2024 7:56 AM EDT) No Shivam Pimentel MD Maintain a healthy diet, exercise regularly and maintain an ideal body weight General No Chey Phan, RMA documented as of this encounter Visit Diagnoses Not on filedocumented in this encounter Discontinued Medications Medication Sig Discontinue Reason Start Date End Da te amLODIPine (NORVASC) 10 mg Oral Tablet Take 1 Tablet by mouth daily. 05/01/2024 09/19/2024 documented as of this encounter Care Teams Rolling Machine Tender Relationship Specialty Start Date End Date Shivam Pimentel MD [address] [place], [place] [id number] PCP - General 08/28/09 documented as of this encounter
--- OUTSIDE RECORDS SUMMARY | 2024-11-12 09:52 | XMS_ITS | Encounter Summary ---
Author Organization [place] [address] Care Team Providers Care Pain Management Nurse Name Role Phone Shivam Pimentel MD Primary Care Provider [phone] Encounter Details Date Type Department Care Team (Latest Contact Info) Description 08/29/2024 Results Follow-Up SEP Del [address] [place] [address] Shannon Enamorado, [facility] [address] [place] [address] COMPREHENSIVE METABOLIC PANEL, CBC WITH DIFF, HEMOGLOBIN A1C, Additional followed-up results: 2 Social History Tobacco Use Types Packs/Day Years [...] Date Recorded PHQ-2 Total Score 0 07/20/2021 [place] [place] [facility] - Occupational Stress [...] Bob Gomez CCMA documented in this encounter Progress Notes * Marialuisa Briseno, SOPHIE - 09/10/2024 11:29 AM EDT Laboratory results received, patient notified by: Contacted by [employer] message documented in this encounter Plan of Treatment [...] on filedocumented in this encounter Care Teams Pain Management Nurse Relationship Specialty Start Date End Date Shivam Pimentel MD [address] [place] [address] PCP - General 08/28/09 documented as of this encounter
--- OUTSIDE RECORDS SUMMARY | 2024-11-12 09:52 | XMS_ITS | Encounter Summary ---
Author Organization [place] [address] Care Team Providers Care Cardiology Teacher Name Role Phone Shivam Pimentel MD Primary Care Provider [phone] Reason for Visit * Reason Comments Medication Refill Encounter Details Date Type Department Care Team (Late st Contact Info) Description 10/12/2024 Refill SEP Del [facility] [place] [address] Shivam Pimentel MD [address] [place] [address] Medication Refill Social History Tobacco Use [...] Date Recorded PHQ-2 Total Score 0 07/20/2021 [facility] of Occupat ional Health - Occupational Stress [...] Assessment Author No 07/20/2021 7:04 AM Bob oGmez CCMA * Is the person blind or [...] of Assessment Author No 07/20/2021 7:04 AM oBb Gomez CCMA * Because of a physical, [...] Refills Last Filled Start Date End Date montelukast (SINGULAIR) 10 mg Oral Tablet Take 1 Tablet by mouth every evening. 30 Tablet 10/14/2024 documented in this encounter Miscellaneous Notes * Telephone Encounter - Siri Wheeler CPhT - 10/14/2024 10:49 AM EDT Montelukast - Future Visit: N/A Last Assessed Visit: N/A Follow-Up Date: N/A Appointment protocol failed. One remedios supply sent to pharmacy. Routed to Patient Navigators. documented in this encounter Plan of Treatment [...] Discontinue Reason Start Date End Da te montelukast (SINGULAIR) 10 mg Oral Tablet Take 1 Tablet by mouth every evening. 08/26/2024 10/14/2024 documented as of this encounter Care Teams Cardiology Teacher Relationship Specialty Start Date End Date Shivam Pimentel MD [address] [place] [address] PCP - General 08/28/09 documented as of this encounter
--- OUTSIDE RECORDS SUMMARY | 2024-11-12 09:52 | XMS_ITS | Encounter Summary ---
Author Organization [place] [address] Care Team Providers Care Traffic Control Signaler Name Role Phone Shivam Pimentel MD Primary Care Provider [phone] Reason for Visit * Reason Onset Date Comments Medication Refill 10/16/2024 Encounter Details Date Type Department Care Team (Late st Contact Info) Description 10/16/2024 Refill SEP Del [facility] [place] [address] Shivam [place]iment[place] [address] [place] [address] Medication Refill Social History Tobacco Use [...] Date Recorded PHQ-2 Total Score 0 07/20/2021 [facility] [place] of Occupat ional Health - Occupational Stress [...] 4 mg Oral Tablet, Rapid DissolveIndication s:Nausea Dissolve 1 Tablet by mouth every 6 hours as needed for Nausea. 30 Tablet 10/16/2024 documented in this encounter Plan of Treatment Not on file documented as of this encounter Goals Goal Patient Goal Type Associated Problems Recent Progress Patient-Stated? Author Blood Pressure < 140/90 Blood Pressure 126/76(2024 7:56 AM EDT) No Shivam Pimentel MD Maintain a healthy diet, exercise regularly and maintain an ideal body weight General No Chey Phan, A documented as of this encounter Visit Diagnoses Diagnosis Nausea Nausea alone documented in this encounter Discontinued Medications Medication Sig Discontinue Reason Start Date End Da te ondansetron (ZOFRAN-ODT) 4 mg Oral Tablet, Rapid DissolveIndications:Naus ea Take 1 Tablet by mouth every 6 hours as needed for Nausea. Reorder 08/20/2024 10/16/2024 documented as of this encounter Care Teams Traffic Control Signaler Relationship Specialty Start Date End Date Shivam Pimentel MD [address] [place], [place] [address] PCP - General 08/28/09 documented as of this encounter
--- OUTSIDE RECORDS SUMMARY | 2024-11-12 09:52 | XMS_ITS | Clinical Summary ---
Author Organization [facility] Address [address] [place] [address] Care Team Providers Care Loader Operator/Ground Leader Name Role Phone Shivam Pimentel MD Primary Care Provider [phone] Social History Tobacco Use Types Packs/Day Years Used Date Smoking Tobacco: Never Assessed Comments Unknown Sex and Gender Information Value Date Recorded Sex Assigned at Not on file Legal Sex Female 6:38 PM EDT Gender Identity Not on file Sexual Orientation Not on file Plan of Treatment Health Maintenance Due Date Last Done Comments [facility]-Depression Screening 1970 [facility]-/Child/Adol SDOH Screenings 1972 [facility]- SDOH Screenings 1990 [facility]-Adult SDOH Screenings 1990 [facility]-DTaP,Tdap,and Td Vaccine s (1 - Tdap) 07/26/1991 [facility]-Hepatitis B Vaccines (1 of 3 - 19+ 3-dose series) 07/26/1991 [facility]-Pap Smear 1993 [facility]-Cervical Cancer Screening 2002 [facility]-HPV/Cotest 2002 CT Colonography 2017 Colonoscopy 2017 FIT-DNA 2017 FIT 2017 FOBT 2017 Sigmoidoscopy 2017 [facility]-Colorectal Cancer Screening 2017 [facility]-Pneumococcal Vaccine: 50 + Years (1 of 1 - PCV) 2022 [facility]-Zoster Vaccines (1 of 2) 2022 [id number] Vaccine (1 - 20 24-25 season) 2024 [facility]-Influenza Vaccine ([place] n Ended) 2025 HPV Vaccines Aged Out No longer eligi ble based on patient's age to complete this topic [facility]-HIB Vaccines Aged Out No longer e ligible based on patient's age to complete this topic [facility]-Hepatitis A Vaccines Aged Out No longer eligible based on patient's age to complete this topic [facility]-IPV Vaccines Aged Out No longer e ligible based on patient's age to complete this topic [facility]-Rotavirus Vaccines Aged Out No lo nger eligible based on patient's age to complete this topic Care Teams Loader Operator/Ground Leader Relationship Specialty Start Date End Date Shivam Pimentel MD [address] [place], [place] [address] PCP - General 09/25/20
--- NOTE | 2024-11-12 10:16 | EXP.PAIN.SOA ---
[facility] Disclaimer: The information contained in this section may have been updated after the patient was seen, as this information can be updated by other users. 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 She does rates this a 6 out of 10. She denies any new falls or injuries. This has been going on for some time and we have discussed in the past about possible injections. She does state that she would like to proceed forward with this option as it is interfering with her ability perform activities of daily living such as cooking and cleaning. Patient states it is fairly constant and is worse with certain positions. Patient is also managed with intrathecal morphine 1 mg/mL with a daily dose of 0.173 mg/day and compounded cream. She denies any side effects. Her Roldan has been reviewed and is appropriate. Review of Systems: General: No recent weight changes, no fever, no sleep disturbances Respiratory: No cough, no shortness of air, no recurring pulmonary infections Cardiovascular/peripheral vascular: No chest pain, no palpitations, no edema, no shortness of breath Gastrointestinal: No new onset incontinence, normal bowel movements reported Genitourinary: No new onset incontinence Musculoskeletal: Bilateral hip pain Psychiatric: [Normal mood/affect] Neurological: [Denies weakness in extremities], [denies balance issues] Pain at rest (0-10 scale): 6 Objective Objective:: Physical Exam: General: Alert and oriented x3, no acute distress, pleasant and cooperative Lungs: Respirations even and unlabored, symmetrical chest expansion Eyes: PERRL Musculoskeletal: Flexion and extension of lumbar [spine] somewhat guarded secondary to pain, point tenderness along bilateral greater trochanteric bursa's Neurological: Speech clear, no gross sensory deficit Has patient had previous pain injection?: No Conservative treatment options previously tried: Home exercise plan Length of treatment: Longer than 12 weeks Meds Home Medications and Allergies Home Medications ?Medication ?Instructions ?Recorded ?Confirmed ?Type amlodipine 10 mg tablet (Norvasc) 10 mg PO DAILY Hypertension 10/27/17 10/18/24 History buspirone 5 mg tablet 10 mg PO TID Depression 10/27/17 10/18/24 History propranolol 20 mg tablet 20 mg PO BID Hypertension 10/27/17 10/18/24 History quetiapine 50 mg tablet (Seroquel) 50 mg PO PM SLEEP 10/27/17 10/18/24 History ropinirole 1 mg tablet 1 mg PO PM RLS 10/27/17 10/18/24 History celecoxib 200 mg capsule 200 mg PO BID BACK PAIN 10/28/19 10/18/24 History morphine 5 mg/mL injection solution 0.55 mg IT CONT Pain 04/23/20 10/18/24 History metformin 500 mg tablet,extended 500 mg PO DAILY Diabetes 10/26/20 10/18/24 History release 24 hr New Prescriptions to Start Prescriptions: Allergies Allergy/AdvReac Type Severity Reaction Status Date / Time ciprofloxacin (CIPROFLOXACIN) Allergy Unknown Unknown Verified 06/21/24 10:34 allergy reaction Tetracyclines (TETRACYCLINES) Allergy Unknown Unknown Verified 06/21/24 10:34 allergy reaction Assessment and Plan *Assessment and plan (1) Greater trochanteric bursitis of both hips: Status: Acute Category: Medical Code(s): M70.61 - Trochanteric bursitis, right hip; M70.62 - Trochanteric bursitis, left hip (2) Bilateral hip pain: Status: Acute Category: Medical Code(s): M25.551 - Pain in right hip; M25.552 - Pain in left hip Plan Patient is experiencing worsening pain in her bilateral hips with limited range of motion and point tenderness along her greater trochanteric bursa's bilaterally. I did review over with the patient that I do believe she would benefit from bursa injections. Risk and benefits were discussed with the patient and she would like to proceed forward with this plan of care. Patient has tried and failed conservative therapy including oral medications, heat and ice, topicals, at home stretching exercise for longer than 12 weeks. Patient has had this pain for longer than 3 months. Patient will be scheduled for bilateral greater trochanteric bursa injections under fluoroscopy. Patient has been instructed to contact the clinic with any concerns before the next appointment. Dr. Romo has reviewed this note and agrees with this plan of care. This note was dictated using voice recognition software and make contain errors or omissions. All injections are used with Lidocaine, Bupivacaine and dexamethasone. Occasionally urine drug screen is needed to verify patient's compliance with our office pain contract. This is ordered based off specific treatments related to chronic pain with the potential to abuse certain medications.
[2024-11-12 10:45] VITALS: BP 108/77; PULSE 75; RESP 14; O2SAT 98; BMI 33.7
== END 2024-11-12 23:59 | disposition home or self-care (01) ==
LOC: SC.PAIN 09:50
PROVIDERS: PCP Pediatrics; Visit Provider Nurse Practitioner Family
DX: M70.61 Trochanteric bursitis, right hip (principal); M70.62 Trochanteric bursitis, left hip; Z79.891 Long term (current) use of opiate analgesic
CPT/HCPCS: 99212; G0463

== ENCOUNTER 2024-12-03 08:09 | Day surgery (SDC) | payer BC, SELFPAY ==
[2024-12-03 08:21] VITALS: BP 129/74; PULSE 67; RESP 18; O2SAT 100; BMI 32.9
[2024-12-03] MEDS: LIDOCAINE 1% 5ML PF VIAL 5 ML (08:38)
[2024-12-03] MEDS: BUPIVACAINE 0.25% 10ML INJ 25 MG IJ (08:38)
[2024-12-03] MEDS: DEXAMETHASONE 10MG/ML 1ML VIAL 10 MG (08:38)
--- NOTE | 2024-12-03 08:38 | EXP.PAIN.PRO ---
Procedure Date: 12/03/24 Time: 08:32 Anesthesiologist:: Hernandez Lerner CRNA Complications:: None Pre-procedure Diagnosis:: Bilateral trochanteric bursitis Post-procedure Diagnosis:: Same Indications for Procedure:: Patient is a very pleasant 54-year-old female that comes her clinic today for bilateral trochanteric bursa injection of cortisone localized 8. Patient describes bilateral lateral hip pain as constant, dull, aching, sharp, stabbing. Upon examination she has extreme point tenderness over the bilateral trochanteric bursa. She rates her pain 7/10. Procedure Details:: Procedure: Bilateral trochanteric bursa joint injections under fluoroscopy Informed consent was obtained and the risks and benefits of the procedure were explained to the patient.~ The patient was taken to the procedure room and noninvasive monitors were placed including a noninvasive blood pressure cuff and pulse oximeter.~ The patient was placed prone on the procedure table. The area over the posterior hips was cleansed using chlorhexidine as a cleansing solution. Using fluoroscopy guidance the left trochanteric bursa was accessed with ease using a 22-gauge 3 and half inch spinal needle. 0.5 mL of contrast dye was injected to confirm the needle placement. At this time 3 cc of 1% lidocaine +3 cc of 0.25% Marcaine and 5 mg of dexamethasone was injected. The same procedure was carried out over the right trochanteric bursa. The patient tolerated the procedure without difficulty. There were no complications. Plan and Disposition:: Patient was discharged without incident.
[2024-12-03 08:39] VITALS: BP 123/43; PULSE 78; RESP 18; O2SAT 98
[2024-12-03 08:40] VITALS: BP 123/43; PULSE 78; RESP 18; O2SAT 98
[2024-12-03 08:50] VITALS: BP 120/66; PULSE 83; RESP 18; O2SAT 99
== END 2024-12-03 08:50 | disposition home or self-care (01) ==
PROVIDERS: PCP Pediatrics; Visit Provider Nurse Anesthetist, Certified Registered
DX: M70.62 Trochanteric bursitis, left hip (principal); M70.61 Trochanteric bursitis, right hip; I10 Essential (primary) hypertension; E11.9 Type 2 diabetes mellitus without complications; G25.81 Restless legs syndrome; F32.A Depression, unspecified; Z79.84 Long term (current) use of oral hypoglycemic drugs; Z88.1 Allergy status to other antibiotic agents; Z79.899 Other long term (current) drug therapy
CPT/HCPCS: 20610; J0665; J1100; J2003

== ENCOUNTER 2024-12-13 08:42 | Day surgery (SDC) | payer BC, SELFPAY ==
--- NOTE | 2024-12-13 08:51 | EXP.PM.HP ---
History of Present Illness *Admission Date: 12/13/24 *Reason for visit:: Intrathecal refill; DDD *History of present illness: Same [facility] Disclaimer: The information contained in this section may have been updated after the patient was seen, as this information can be updated by other users. 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 current occupational exposures/hazards: No caffeine: Yes Have you lived/traveled outside [place] in past 30 days?: No Contact w/someone who lives/traveled outside [place] past 30 days?: No Exposure to someone with infectious disease in past 14 days?: No Do you have a fever (greater than 100.4 F or 38 C)?: No Have you tested positive for COVID-19?: No Exposed to someone with COVID-19 in past 14 days?: No Do you have a sore throat?: No Do you have a cough?: No Do you have any weakness?: No Do you have any diarrhea?: No Are you experiencing any unusual bleeding?: No Do you have any muscle aches/pain?: No Do you have any abdominal pain?: No Are you experiencing loss of taste or smell?: No Other Medical History Have you received the Flu Vaccine for this season: No Have you received the Pneumonia Vaccine: No Review of Systems Review of Systems Review of systems:: pertinent systems reviewed and negative unless documented below Review of systems (narrative): Review of Systems: General: No recent weight changes, no fever, no sleep disturbances Respiratory: No cough, no shortness of air, no recurring pulmonary infections Cardiovascular/peripheral vascular: No chest pain, no palpitations, no edema, no shortness of breath Gastrointestinal: No new onset incontinence, normal bowel movements reported Genitourinary: No new onset incontinence Musculoskeletal: [] Psychiatric: [Normal mood/affect] Neurological: [Denies weakness in extremities], [denies balance issues] Meds Home Medications and Allergies Home Medications ?Medication ?Instructions ?Recorded ?Confirmed ?Type amlodipine 10 mg tablet (Norvasc) 10 mg PO DAILY Hypertension 10/27/17 12/13/24 History buspirone 5 mg tablet 10 mg PO TID Depression 10/27/17 12/13/24 History propranolol 20 mg tablet 20 mg PO BID Hypertension 10/27/17 12/13/24 History quetiapine 50 mg tablet (Seroquel) 50 mg PO PM SLEEP 10/27/17 12/13/24 History ropinirole 1 mg tablet 1 mg PO PM RLS 10/27/17 12/13/24 History celecoxib 200 mg capsule 200 mg PO BID BACK PAIN 10/28/19 12/13/24 History morphine 5 mg/mL injection solution 0.55 mg IT CONT Pain 04/23/20 12/13/24 History metformin 500 mg tablet,extended 500 mg PO DAILY Diabetes 10/26/20 12/13/24 History release 24 hr New Prescriptions to Start Prescriptions: Allergies Allergy/AdvReac Type Severity Reaction Status Date / Time ciprofloxacin (CIPROFLOXACIN) Allergy Unknown Unknown Verified 06/21/24 10:34 allergy reaction Tetracyclines (TETRACYCLINES) Allergy Unknown Unknown Verified 06/21/24 10:34 allergy reaction Exam Constitutional Constitutional: no acute distress *Routine HEENT Exam Head: Present normocephalic and atraumatic Eye: Present PERRL ENT: Present mucous membranes moist *Routine Neck Exam Neck: Present supple *Routine Respiratory Exam Respiratory: Present CTA bilaterally *Routine Cardiovascular Exam Cardiovascular: Present RRR *Routine Abdominal Exam Abdominal: Present soft *Routine Rectal Exam Rectal:: deferred *Routine Genitalia Exam Genitalia:: deferred Routine Back/Spine/Pelvis Exam Back/Spine: Present pain with flexion *Routine Skin Exam Skin: Present intact and warm *Routine Neurological Exam Neurological: Present alert and oriented X3 Routine Psychiatric Exam Psychiatric: Present normal affect and normal thought process Assessment and Plan *Assessment and plan (1) Greater trochanteric bursitis of both hips: Status: Acute Category: Medical Code(s): M70.61 - Trochanteric bursitis, right hip; M70.62 - Trochanteric bursitis, left hip (2) Lumbar radiculopathy: Status: Acute Category: Medical Code(s): M54.16 - Radiculopathy, lumbar region Plan Patient has been instructed to contact the clinic with any concerns before the next appointment. Dr. Romo has reviewed this note and agrees with this plan of care. This note was dictated using voice recognition software and make contain errors or omissions. All injections are used with Lidocaine, Bupivacaine and dexamethasone. Occasionally urine drug screen is needed to verify patient's compliance with our office pain contract. This is ordered based off specific treatments related to chronic pain with the potential to abuse certain medications.
[2024-12-13 08:52] VITALS: BP 145/59; PULSE 82; RESP 18; O2SAT 98; BMI 33.1
--- NOTE | 2024-12-13 08:58 | EXP.PAIN.PRO ---
Procedure Date: 12/13/24 Time: 09:06 Anesthesiologist:: Carla Reis APRN Complications:: None Pre-procedure Diagnosis:: Degenerative disc disease of the lumbar spine with lumbar radiculopathy symptoms, chronic pain syndrome Post-procedure Diagnosis:: Same Indications for Procedure:: Patient is a pleasant 54-year-old female who presents today for intrathecal refill and reprogram. She rates her pain today a 3 out of 10. She denies any new changes or falls. She states overall she is doing really well. Patient is currently managed with morphine 1 mg/mL with a daily dose of 0.1903 mg/day along with compounded cream. She denies any side effects. Her Roldan has been reviewed and is appropriate. Physical Exam: General: Alert and oriented x3, no acute distress, pleasant and cooperative Lungs: Respirations even and unlabored, symmetrical chest expansion Eyes: PERRL Musculoskeletal: Flexion and extension of lumbar [spine] somewhat guarded secondary to pain, [antalgic gait noted] Neurological: Speech clear, no gross sensory deficit Procedure Details:: Informed consent was obtained and the risk and benefits of the procedure were explained to the patient. The patient had noninvasive monitoring placed including noninvasive blood pressure cuff and pulse oximeter. Patient's pump was interrogated. The area over the pump was cleansed with chlorhexidine as a cleansing solution. In sterile fashion the pump was accessed with a 22-gauge needle. Approximately 7 mls of the pump solution was removed and discarded appropriately. The pump was then refilled with 20 mL's of morphine 1 mg/mL. The needle was withdrawn and a bandage was placed over the puncture site. The infusion rate was reprogrammed and continued at its current dosage. The patient tolerated well with no complication. Plan and Disposition:: Patient tolerated the procedure well with no complications and was discharged neurologically intact. Patient will return to clinic on or before their next intrathecal refill date. We will see the patient back in the clinic at the next intrathecal refill. Patient has been instructed to contact the clinic with any concerns before the next appointment. Dr. Romo has reviewed this note and agrees with this plan of care. This note was dictated using voice recognition software and make contain errors or omissions. -- It Is medically necessary for this patient to continue to have their intrathecal pump refilled at regular intervals. This patient had an intrathecal pain pump implanted after meeting criteria of chronic intractable pain for greater than 3 months and failing conservative treatments. Patient has committed and been compliant to the treatment plan and all planned follow up care. Since implantation of the intrathecal pain pump, the patient has had decreased pain and been more functional. Oral medications have been reduced including intake of oral opioids. Patient continues to do well with intrathecal therapy with decrease in pain symptoms and increase in functional status. Stopping intrathecal medications can lead to life threatening withdrawal, seizures, cardiac arrest, severe pain, and possible . Pumps that are not refilled at regular intervals can be damages and cause and need for replacement. We continually titrate dose and concentration to optimize pain relief and function. We are limited in concentration for certain drugs to safely deliver medications through the pump and stay within the recommendations from the [employer]yanal[employer] Consensus Committee Guidelines. Depending on dose and concentration these pumps may need to be refilled sooner than 3 months as we titrate. A UDS is needed to verify patient's compliance with our office pain contract. This is ordered based off specific treatments related to chronic pain with the potential to abuse certain medications.
[2024-12-13 09:02] VITALS: BP 132/79; PULSE 85; RESP 18; O2SAT 97
[2024-12-13 09:11] VITALS: BP 109/71; PULSE 79; RESP 18; O2SAT 100
== END 2024-12-13 09:11 | disposition home or self-care (01) ==
PROVIDERS: PCP Pediatrics; Visit Provider Nurse Practitioner Family
DX: Z45.1 Encounter for adjustment and management of infusion pump (principal); M70.61 Trochanteric bursitis, right hip; M70.62 Trochanteric bursitis, left hip; M51.16 Intervertebral disc disorders with radiculopathy, lumbar region; Z79.899 Other long term (current) drug therapy; Z79.84 Long term (current) use of oral hypoglycemic drugs; Z88.1 Allergy status to other antibiotic agents
CPT/HCPCS: 62370